=== PATIENT | female | born 1995 | race Caucasian/White ===

== ENCOUNTER → 2022-08-02 08:23 | Outpatient (BNVA) | payer BC, MEDICAID, SELFPAY | PROVIDERS: PCP Family Medicine; Visit Provider Nurse Practitioner Family | DX: J02.9 Acute pharyngitis, unspecified (principal) | CPT/HCPCS: 87071; 87880 ==

== ENCOUNTER → 2023-03-03 07:39 | Outpatient (BNVA) | payer BC, MEDICAID, SELFPAY | PROVIDERS: PCP Family Medicine; Visit Provider Nurse Practitioner Women's Health | DX: Z32.00 Encounter for pregnancy test, result unknown (principal); Z3A.00 Weeks of gestation of pregnancy not specified | CPT/HCPCS: 81025 ==

== ENCOUNTER → 2023-03-28 07:52 | Outpatient (BNVA) | payer BC, MEDICAID, SELFPAY | PROVIDERS: PCP Family Medicine; Visit Provider Obstetrics & Gynecology | DX: Z34.91 Encounter for supervision of normal pregnancy, unspecified, first trimester (principal); Z3A.09 9 weeks gestation of pregnancy | CPT/HCPCS: 76801; 80307; 84315; 85025; 86592; 86762; 86803; 86850; 86900; 87086; 87340; 87389 ==

== ENCOUNTER → 2023-04-21 13:06 | Outpatient (BNVA) | payer BC, MEDICAID, SELFPAY | PROVIDERS: PCP Family Medicine; Visit Provider Obstetrics & Gynecology | DX: Z34.80 Encounter for supervision of other normal pregnancy, unspecified trimester (principal); Z34.90 Encounter for supervision of normal pregnancy, unspecified, unspecified trimester; Z3A.00 Weeks of gestation of pregnancy not specified | CPT/HCPCS: 80307; 81000; 82950; 85025; 86592; 86762; 86803; 86850; 86900; 87086; 87340; 87491; 87591; 87806 ==

== ENCOUNTER → 2023-04-25 08:20 | Outpatient (BNVA) | payer BC, MEDICAID, SELFPAY | PROVIDERS: PCP Family Medicine; Visit Provider Obstetrics & Gynecology | DX: Z34.90 Encounter for supervision of normal pregnancy, unspecified, unspecified trimester (principal); Z3A.00 Weeks of gestation of pregnancy not specified | CPT/HCPCS: 82951; 82952 ==

== ENCOUNTER 2023-04-29 10:17 | Emergency (ER) | payer BC, MEDICAID, SELFPAY ==
[2023-04-29 11:04] VITALS: BP 108/74; PULSE 103; RESP 18; TEMP 36.7; O2SAT 98; BMI 34.9
--- NOTE | 2023-04-29 11:45 | ED_ITS ---
HPI - Nausea/Vomiting/Diarrhea 2 General: Chief complaint: Nausea/Vomiting/Diarrhea Stated complaint: 13 weeks preg. / Vomiting Time Seen by Provider: 04/29/23 10:20 Source: patient Mode of arrival: ambulatory Limitations: no limitations History of Present Illness: Patient is a nice 27-year-old female approximately 13 weeks who for complaints of nausea and vomiting. She states she has had mild nausea throughout her that has been easy to control with peppermint candies and small frequent eatings. She states over the last few weeks, now that she has gotten further along with the , the nausea has improved. She states she felt fine all day yesterday but awoke this morning feeling nauseous and had a few episodes of vomiting. She denies poor food exposures. Denies abdominal pain/cramping. No vaginal bleeding. Her concern today is that she states her first episode of vomit was mainly food, second episode was more acid/bilious like, then another episode of mucous vomit, and then an episode of dark/black vomit. She is concerned about the dark color. She does not take NSAIDS/alcohol secondary to being . No anticoagulation. No previous history of GI bleeds. MD elicited complaint: nausea and vomiting Onset (ago): hour(s) Associated nausea: Yes Associated abdominal pain: No Location of pain: None Severity: mild Exacerbating factors: none Relieving factors: none Associated symtoms: Reports no associated symptoms and nausea; Denies chest pain, dysuria, fatigue, headache(s), malaise or syncope Review of Systems 2 Const: Denies: fever(s), chills, body aches, fatigue or malaise Card: Denies: chest pain, lightheadedness, syncope or pre-syncope Resp: Denies: dyspnea GI: Reports: nausea and vomiting; Denies: abdominal pain, diarrhea, GI cramping, change in bowel habits, rectal pain, hematochezia, melena or mucus in stool : Denies: flank pain, dysuria or hematuria Musc: Denies: neck pain, back pain, extremity pain or joint pain Skin/Breast: Denies: rash Neuro: Denies: headache(s), numbness in extremities, weakness in extremities or sensory changes PFSH ED 2 PFSH: Medical History No pertinent past medical history neghx: htn,dm,thyroid,dvt/pe PCP: Dr. Pena Anxiety Moderate major depression Sarcoidosis Surgical History No pertinent past surgical history Family History Mother Hypertension Denies family history of Colon cancer Ovarian cancer Prostate cancer Diabetes Breast cancer Cancer Uterine cancer Thyroid disease Stroke Physical Exam 2 Const: COMMON NORMALS: no acute distress, average body habitus, patient oriented x3, no limitations, healthy appearing, alert and well nourished Neck/C-Spine: GENERAL: Yes normal visual inspection, No anterior neck swelling and No submandibular swelling Chest: COMMONS NORMALS: normal inspection of the chest and normal palpation of entire chest wall Resp: COMMON NORMALS: normal respiratory effort EFFORT & INSPECTION: Yes able to speak in complete sentences Cardio: COMMON NORMALS: regular rate and regular rhythm RATE: regular rate RHYTHM: regular rhythm GI: COMMON NORMALS: Normal to inspection, nondistended, normoactive bowel sounds present, Soft to palpation, non-tender, No hepatosplenomegaly present and no masses INSPECTION: Yes gravid abdomen PALPATION: Yes Soft to palpation and Yes No hepatosplenomegaly present : COMMON NORMALS: Yes no CVA tenderness BLADDER/KIDNEY EXAM: Yes no CVA tenderness Back/Pelvis: COMMON NORMALS: no CVA tenderness and thoracic and lumbar spine normal to inspection Neuro: LOLA COMA SCALE: document GCS findings Lola coma scale eye opening: Spontaneous [place] coma scale verbal response: Orientated Lola coma scale motor response: Obey commands Lola coma scale total score: 15 COMMON NORMALS: patient oriented x3, moves all extremities, no focal motor deficits and no sensory deficits noted SENSORIUM/ORIENTATION: Yes alert Skin: COMMON NORMALS: no rashes or lesions noted GENERAL SKIN EXAM: no rashes or lesions noted Course 2 Vital Signs: Vital signs: Vital Signs Temperature 98.1 F 04/29/23 11:04 Pulse Rate 103 H 04/29/23 11:04 Respiratory Rate 18 04/29/23 11:04 Blood Pressure 108/74 04/29/23 11:04 Pulse Oximetry 98 04/29/23 11:04 Oxygen Delivery Me thod Room Air 04/29/23 11:04 MDM - Nausea/Vomiting/Diarrhea Medical Decision Making Patient appears in no acute distress. Her concern today was for an episode of dark black vomit. This occurred after 3 previous episodes of vomiting. She has absolutely no abdominal or chest pain. She has no risk factors for GI bleed. Her vital signs are stable. Her blood work is unremarkable. At this time I do not have any concern for an actively bleeding gastric/duodenal ulcer, Karishma- Hook tear, Boerhaave syndrome, or other emergent etiology. Discussed if vomiting persists or if she has further episodes of dark/black vomiting/coffee grounds/or bright red blood she should return to the ED. She has no vomiting while here so gastroccult could not be performed. Medical Records I reviewed the patient's medical records. Lab Data I reviewed the patient's lab results. 04/29/23 11:56 04/29/23 11:56 Laboratory Results WBC 6.80 10^3/uL (3.29-11.43) 04/29/23 11:56 RBC 4.45 10^6/uL (3.85-5.65) 04/29/23 11:56 Hgb 13.20 g/dL (11.27-16.99) 04/29/23 11:56 Hct 39.7 % (36-47) 04/29/23 11:56 MCV 89.2 fl (85-98) 04/29/23 11:56 MCH 29.7 pg (27-33) 04/29/23 11:56 MCHC 33.2 g/dL (30-55) 04/29/23 11:56 RDW 13.2 % (12.1-15.1) 04/29/23 11:56 Plt Count 165 10^3/cmm (157-399) 04/29/23 11:56 MPV 11.1 fL (7.4-10.4) H 04/29/23 11:56 Neut % (Auto) 88.0 % 04/29/23 11:56 Lymph % (Auto) 8.1 % 04/29/23 11:56 [place] % (Auto) 3.5 % 04/29/23 11:56 Eos % (Auto) 0.0 % 04/29/23 11:56 Baso % (Auto) 0.1 % 04/29/23 11:56 Neut # (Auto) 5.98 10^3/uL (1.8-7.7) 04/29/23 11:56 Lymph # (Auto) 0.6 10^3/uL (0.8-4.8) L 04/29/23 11:56 [place] # (Auto) 0.2 10^3/uL (0.2-0.9) 04/29/23 11:56 Eos # (Auto) 0.0 10^3/uL (0.0-0.8) 04/29/23 11:56 Baso # (Auto) 0.0 10^3/uL (0.0-0.1) 04/29/23 11:56 Nucleated RBC % (auto) 0 % 04/29/23 11:56 Nucleated RBCs # 0.0 /100WBC 04/29/23 11:56 Sodium 139 mmol/L (136-145) 04/29/23 11:56 Potassium 3.8 mmol/L (3.5-5.1) 04/29/23 11:56 Chloride 104 mmol/L (98-107) 04/29/23 11:56 Carbon Dioxide 23 mmol/L (22-29) 04/29/23 11:56 Anion Gap 15.8 (5-19) 04/29/23 11:56 BUN 7 mg/dL (6-20) 04/29/23 11:56 Creatinine 0.4 mg/dL (0.5-0.9) L 04/29/23 11:56 GFR Calculation 194.5 mL/min (90-130) H 04/29/23 11:56 Glucose 90 mg/dL (65-115) 04/29/23 11:56 Calculated Osmolality 286 mOsm/kg (285-295) 04/29/23 11:56 Calcium 9.8 mg/dL (8.5-10.5) 04/29/23 11:56 Total Bilirubin 0.6 mg/dL (0.15-1.2) 04/29/23 11:56 AST 21 U/L (0-32) 04/29/23 11:56 ALT 16 U/L (0-33) 04/29/23 11:56 Alkaline Phosphatase 102 U/L (35-105) 04/29/23 11:56 Total Protein 7.6 g/dL (6.6-8.7) 04/29/23 11:56 Albumin 4.0 g/dL (3.5-5.2) 04/29/23 11:56 Globulin 3.6 g/dL (1.3-4.6) 04/29/23 11:56 No radiology studies performed this visit Discharge Plan Discharge Patient Disposition: Home Clinical Impression: Nausea and vomiting Qualifiers: Vomiting type: unspecified Qualified Code(s): R11.2 - Nausea with vomiting, unspecified Condition: Stable Prescriptions: No Action sertraline [Zoloft] 50 mg tablet 75 mg PO DAILY PNV #[id number] 30 mg iron-10 mg iron-1 mg capsule 1 cap PO DAILY Discharge Orders: Discharge ED (Routine); Ordered 04/29/23 Ordered By: Emmy Manuel Referrals: Romeo Pena MD [Primary Care Provider] - Coding Level of Care Code ED Cancellation Clerk for Dorothea James
[2023-04-29 12:03] LABS: Basophils % 0.1 %; Hematocrit 39.7 % (36-47); Lymphocytes # 0.6 10^3/uL (0.8-4.8); Lymphocytes % 8.1 %; Mean Corpuscular HGB Conc 33.2 g/dL (30-55); Mean Corpuscular Hemoglobin 29.7 pg (27-33); Mean Corpuscular Volume 89.2 fl (85-98); Mean Platelet Volume 11.1 fL (7.4-10.4); Monocytes # 0.2 10^3/uL (0.2-0.9); Monocytes % 3.5 %; Neutrophils # 5.98 10^3/uL (1.8-7.7); Nucleated Red Blood Cells % 0 %; Platelet Count 165 10^3/cmm (157-399); Red Blood Count 4.45 10^6/uL (3.85-5.65); Red Cell Distribution Width 13.2 % (12.1-15.1)
[2023-04-29] MEDS: diphenhydrAMINE 50 mg/mL SDV 1mL 25 MG IVP (12:04)
[2023-04-29] MEDS: sodium chloride 0.9% 1,000 ML 999 ML IV (12:04)
[2023-04-29] MEDS: metoclopramide 5 mg/mL SDV 2 mL IVP (12:05)
[2023-04-29 12:19] LABS: Alanine Aminotransferase 16 U/L (0-33); Alkaline Phosphatase 102 U/L (35-105); Anion Gap 15.8 (5-19); Aspartate Amino Transferase 21 U/L (0-32); Blood Urea Nitrogen 7 mg/dL (6-20); Calcium 9.8 mg/dL (8.5-10.5); Carbon Dioxide 23 mmol/L (22-29); Chloride 104 mmol/L (98-107); Globulin 3.6 g/dL (1.3-4.6); Glomerular Filtration Rate 194.5 mL/min (90-130); Glucose 90 mg/dL (65-115); Osmolality Calculated 286 mOsm/kg (285-295); Potassium 3.8 mmol/L (3.5-5.1); Sodium 139 mmol/L (136-145); Total Bilirubin 0.6 mg/dL (0.15-1.2); Total Protein 7.6 g/dL (6.6-8.7)
== END 2023-04-29 13:58 | disposition home or self-care (01) ==
PROVIDERS: Emergency Provider Physician Assistant; PCP Family Medicine
DX: O26.891 Other specified pregnancy related conditions, first trimester (principal); R11.2 Nausea with vomiting, unspecified; Z3A.13 13 weeks gestation of pregnancy
CPT/HCPCS: 36415; 80053; 85025; 96361; 96374; 96375; 99284; J1200; J2765; J7030

== ENCOUNTER → 2023-05-21 10:02 | Outpatient (BNVA) | payer BC, MEDICAID, SELFPAY | PROVIDERS: PCP Family Medicine; Visit Provider Nurse Practitioner Women's Health | DX: Z34.80 Encounter for supervision of other normal pregnancy, unspecified trimester (principal); Z3A.00 Weeks of gestation of pregnancy not specified | CPT/HCPCS: 82105; 84315 ==

== ENCOUNTER → 2023-06-18 14:17 | Outpatient (BNVA) | payer BC, MEDICAID, SELFPAY | PROVIDERS: PCP Family Medicine; Visit Provider Nurse Practitioner Women's Health | DX: Z34.92 Encounter for supervision of normal pregnancy, unspecified, second trimester (principal); Z3A.20 20 weeks gestation of pregnancy | CPT/HCPCS: 76805 ==

== ENCOUNTER → 2023-07-17 15:33 | Outpatient (BNVA) | payer BC, MEDICAID, SELFPAY | PROVIDERS: PCP Family Medicine; Visit Provider Obstetrics & Gynecology | DX: Z34.92 Encounter for supervision of normal pregnancy, unspecified, second trimester (principal); Z3A.24 24 weeks gestation of pregnancy | CPT/HCPCS: 76816 ==

== ENCOUNTER → 2023-07-25 07:56 | Outpatient (BNVA) | payer BC, MEDICAID, SELFPAY | PROVIDERS: PCP Family Medicine; Visit Provider Nurse Practitioner Women's Health | DX: Z34.80 Encounter for supervision of other normal pregnancy, unspecified trimester (principal); Z3A.00 Weeks of gestation of pregnancy not specified | CPT/HCPCS: 81000 ==

== ENCOUNTER → 2023-08-04 08:21 | Outpatient (BNVA) | payer BC, MEDICAID, SELFPAY | PROVIDERS: PCP Family Medicine; Visit Provider Obstetrics & Gynecology | DX: O99.810 Abnormal glucose complicating pregnancy (principal); Z3A.00 Weeks of gestation of pregnancy not specified | CPT/HCPCS: 82951; 82952 ==

== ENCOUNTER → 2023-08-15 07:56 | Outpatient (BNVA) | payer BC, MEDICAID, SELFPAY | PROVIDERS: PCP Family Medicine; Visit Provider Obstetrics & Gynecology | DX: Z34.80 Encounter for supervision of other normal pregnancy, unspecified trimester (principal); Z3A.00 Weeks of gestation of pregnancy not specified | CPT/HCPCS: 81000; 85025 ==

== ENCOUNTER → 2023-09-12 10:52 | Outpatient (BNVA) | payer BC, MEDICAID, SELFPAY | PROVIDERS: PCP Family Medicine; Visit Provider Obstetrics & Gynecology | DX: Z34.90 Encounter for supervision of normal pregnancy, unspecified, unspecified trimester (principal); Z3A.00 Weeks of gestation of pregnancy not specified | CPT/HCPCS: 81000 ==

== ENCOUNTER 2023-09-26 11:36 | Outpatient (CLI) | payer BC, MEDICAID, SELFPAY ==
[2023-09-26 11:45] VITALS: BP 107/60; PULSE 84
[2023-09-26 11:49] VITALS: BMI 38.0
[2023-09-26 12:11] VITALS: BP 107/60; PULSE 84; RESP 16; TEMP 36.6
== END 2023-09-26 12:11 | disposition home or self-care (01) ==
LOC: OPOB 11:36 → OBGYN 11:37
PROVIDERS: PCP Family Medicine; Visit Provider Obstetrics & Gynecology
DX: Z34.80 Encounter for supervision of other normal pregnancy, unspecified trimester (principal); Z3A.00 Weeks of gestation of pregnancy not specified
CPT/HCPCS: 59025; 84315; 85025; 99211

== ENCOUNTER → 2023-10-10 07:55 | Outpatient (BNVA) | payer BC, MEDICAID, SELFPAY | PROVIDERS: PCP Family Medicine; Visit Provider Obstetrics & Gynecology | DX: O99.013 Anemia complicating pregnancy, third trimester (principal); Z3A.00 Weeks of gestation of pregnancy not specified | CPT/HCPCS: 84315; 85025; 87081 ==

== ENCOUNTER → 2023-10-15 10:00 | Outpatient (BNVA) | payer BC, MEDICAID, SELFPAY | PROVIDERS: PCP Family Medicine; Visit Provider Nurse Practitioner Women's Health | DX: Z34.80 Encounter for supervision of other normal pregnancy, unspecified trimester (principal); Z3A.00 Weeks of gestation of pregnancy not specified | CPT/HCPCS: 84315; 87086 ==

== ENCOUNTER 2023-11-02 07:00 | Inpatient (IN) | payer BC, MEDICAID, SELFPAY ==
[2023-11-02] VITALS (52 sets, daily range): BP systolic 100–183; BP diastolic 55–110; PULSE 56–106; RESP 12–23; TEMP 36.2–36.9; O2SAT 92–100; BMI 37.4
[2023-11-02 01:41] LABS: Basophils % 0.1 %; Eosinophils % 0.5 %; Hematocrit 32.5 % (36-47); Lymphocytes # 1.8 10^3/uL (0.8-4.8); Lymphocytes % 20.1 %; Mean Corpuscular HGB Conc 32.3 g/dL (30-55); Mean Corpuscular Hemoglobin 29.2 pg (27-33); Mean Corpuscular Volume 90.5 fl (85-98); Mean Platelet Volume 12.3 fL (7.4-10.4); Monocytes # 0.6 10^3/uL (0.2-0.9); Neutrophils # 6.19 10^3/uL (1.8-7.7); Neutrophils % 71.3 %; Nucleated Red Blood Cells % 0 %; Platelet Count 167 10^3/cmm (157-399); Red Blood Count 3.59 10^6/uL (3.85-5.65); Red Cell Distribution Width 15.5 % (12.1-15.1); White Blood Count 8.69 10^3/uL (3.29-11.43)
[2023-11-02] MEDS: miSOPROStol 100 mcg tablet 25 MCG VAGINAL (01:58)
[2023-11-02] MEDS: lactated ringers 1,000 ML 999 ML IV ×2 (06:55→07:57)
[2023-11-02] MEDS: fentaNYL 50 mcg/mL INJ 2mL IVP ×2 (07:28→08:28)
--- NOTE | 2023-11-02 08:44 | P.ANESASSM_ITS ---
Pre-Anesthetic Assessment Height/Weight: Height 1.65 m Weight 102.058 kg Pulse Resp BP O2 Del Method 74 18 135/66 Room Air 11/02/23 08:13 11/02/23 08:28 11/02/23 08:13 11/02/23 00:00 Preop Diagnosis: labor pain epidural Was Beta Lea taken within 24 hours: N/A Was Clonidine taken within 24 hours: N/A Exam alert, oriented x 3, clear to auscultation bilaterally and regular rate & rhythm Airway Submandibular: within normal limits Cervical ROM: within normal limits Mallampati: Class II Dentition: full Pulmonary None reported CV/HEM Anemia None reported Hepatic None reported GI Gastroesophageal Reflux Disease Metabolic None reported Musc/skel None reported Neuropsych Anxiety and Depression Anesthetic Plan ASA status: 2 Anesthesia: Regional (specify below) Risk of > 500 ml blood loss (7ml/kg in children): No Medications/Allergies Home Medications Medication Instructions Recorded Confirmed Last Taken Type sertraline 50 mg tablet (Zoloft) 75 mg PO DAILY 06/25/22 11/02/23 11/01/23 History vitamin#30 30 mg iron-10 1 cap PO DAILY 03/28/23 11/02/23 11/01/23 History mg iron-folic acid 1 mg-omg3 capsule ferrous sulfate 325 mg (65 mg 325 mg PO BID Anemia 30 days #60 08/29/23 11/02/23 11/01/23 Rx iron) tablet tabs Allergies Allergy/AdvReac Type Severity Reaction Status Date / Time No Known Allergies Allergy Verified 11/02/23 02:03 Current Medications Generic Name Dose Route Start Last Admin Trade Name Cam PRN Reason Stop Dose Admin Fentanyl 25 - 100 mcg 11/02/23 01:20 11/02/23 08:28 Fentanyl 50 Mcg/Ml Inj 2ml IVP 50 mcg Q1H PRN Administration SEVERE PAIN Lactated Ringer's 1,000 mls @ 999 mls/hr 11/02/23 01:20 11/02/23 06:55 Lactated Ringers IV 999 mls/hr .Q1H1M PRN Administration Per L&D Rescitation Protocol Lactated Ringer's 1,000 mls @ 999 mls/hr 11/02/23 06:50 11/02/23 07:57 Lactated Ringers IV 999 mls/hr .Q1H1M PRN Administration See label comments PFSH Anesthesia Medical History No pertinent past medical history neghx: htn,dm,thyroid,dvt/pe PCP: Dr. Pena Anxiety Moderate major depression Sarcoidosis Surgical History No pertinent past surgical history Family History Mother Hypertension Denies family history of Colon cancer Ovarian cancer Prostate cancer Diabetes Breast cancer Cancer Uterine cancer Thyroid disease Stroke Social History Smoking and tobacco/nicotine status: never used tobacco/nicotine Female Reproductive History : 3 Data Anesthesia 11/02/23 00:52 Short CBC 11/02/23 Range/Units 00:52 WBC 8.69 (3.29-11.43) 10^3/uL Hgb 10.50 L (11.27-16.99) g/dL Hct 32.5 L (36-47) % MCV 90.5 (85-98) fl Plt Count 167 (157-399) 10^3/cmm Neut % (Auto) 71.3 % Neut # (Auto) 6.19 (1.8-7.7) 10^3/uL Blood Bank 11/02/23 00:52 Blood Type O Positive Rho(D) Type Rh positive Antibody Screen Negative Cardiac Studies: 2 No Data to Display
[2023-11-02] MEDS: ROPivacaine syringe 100 MG/50 ML SYRINGE 10 MG EPIDURAL (09:00)
--- NOTE | 2023-11-02 09:07 | ANES.PROC ---
Anesthesia Procedures Procedure/Date: 11/02/23 epidural Procedure Narrative: epidural complete, bolus given, epidural pump initiated with SENIOR VALIDATION ENGINEER education given, vitals taken during procedure and satisfactory throughout, patient admits to decrease pain, report of procedure to OB RN Epidural: Time Out Performed: Yes Consents Signed: Procedure Consent Consent: requested by attending/covering physician, from patient, risks and benefits reviewed and patient agrees to proceed Lumbar Level: L3-L4 Epidural position: sitting Epidural procedure: sterile prep of area, 1% lidocaine to numb the area (3 mL), 18 g needle, negative for paresthesia passed, neg for paresthesia, test dose given, 1.5% xylocaine 1:200k epi (5 mL), 0.2% Ropivacaine bolus ml (5 mL), placed PCEA, no systemic response, sterile dressing applied, L.U.D. no apparent complications and 0.2% Ropiavacaine @ mls/hr (13 mL/hr)
[2023-11-02] MEDS: lidocaine 2% INJ 20 mL INJECTION (09:25)
[2023-11-02] MEDS: oxytocin 30 UNIT/500 ML BAG 600 UNIT IV (09:26)
--- NOTE | 2023-11-02 09:38 | PM.OPHPUD ---
Labor & Delivery H&P Update Date of Procedure: November 02, 2023 Date H&P Performed: 10/24/23 H&P update information: I have reviewed H&P completed within last 30 days, I have examined patient prior to procedure and No changes to prior documentation Admission Diagnosis: Preop diagnosis: labor pain
--- NOTE | 2023-11-02 09:39 | PM.DELIVERY ---
Delivery Note: Date of delivery: November 02, 2023 Pre-delivery diagnoses: Term Desires permanent sterilization Post-delivery diagnoses: Term delivered Desires permanent sterilization Procedure: Spontaneous vaginal delivery Delivering Physician: Russell Larry MD Estimated blood loss (mL): 300 Pre-Delivery Course: Ms. Miramontes is a 27 year old established patient with LMP of 01/29/23, ESTHELA 11/05/23, based on LMP and consistent with 9 week sonogram, CC: Induction of labor. HPI: Received appropriate care. Daily vitamins since start of care. labs have all been normal, including negative for HIV. She was found to negative for Group B Strep from screening at 36 weeks. She has gained approximately 10 lbs throughout the . She denies a history of HTN during . Glucose tolerance screening for gestational diabetes was negative. Delivery: The patient was noted to be complete and pushing, so was placed in the dorsal lithotomy position, prepped and draped in the usual sterile fashion for a vaginal delivery. Pt. Noted to have epidural anesthesia. At [] the patient delivered a viable term female infant weighing 3315 g with scores of 8 and 9 at one and five minutes, respectively. The vertex was delivered spontaneously over intact perineum. The patient was asked to push and the head delivered spontaneously in the LATONIA position, over an intact perineum. A nuchal cord was checked and none noted. The anterior shoulder delivered easily and the posterior shoulder followed. The remainder of the was easily delivered and the oropharynx and nasopharynx was bulb suctioned. The infant was noted to have spontaneous cry and spontaneous movement of all four extremities. The cord was clamped x 2 and cut and noted to have 2 arteries and one vein. The infant was passed to the mother's abdomen where nursing personnel were in attendance. Cord blood sample was then obtained. The placenta delivered intact spontaneously and the uterus was explored. 20 units of Pitocin was placed in the IV bag to firm the uterus. Examination of the cervix and vaginal vault did not reveal any lacerations. Examination of the perineum showed no laceration. The vaginal pack was then removed. The patient tolerated this procedure well, and recovered in L&D with her infant in their LDR room. All sponge and needle counts were correct. The patient had requested permanent sterilization. Post-Delivery Status: Good and stable History History History 3 Term 2 0 Miscarriages/Ectopic 0 Living Children 2 Coding Level of Care Code Acute Code for Chg Fwd
--- NOTE | 2023-11-02 10:29 | P.PN_ITS ---
Subjective 2 Subjective: Mrs. Miramontes 27-year-old female G3, P3 status post spontaneous vaginal delivery. Requesting permanent sterilization Vitals/I&O/Wt Last Vital Signs Pulse 62 11/02/23 10:21 Resp 18 11/02/23 08:28 BP 104/59 11/02/23 10:21 Pulse Ox 100 11/02/23 09:20 O2 Del Method Room Air 11/02/23 00:00 11/01/23 11/02/23 11/02/23 22:59 06:59 14:59 Intake Total Balance 3 / Weight last 48 hrs Weight 102.058 kg Physical Exam 2 Narrative: GA; alert and oriented x 3 HEENT: normal Breasts: engorged Nipples - skin intact Lungs; clear to auscultation Heart: regular rhythm, no murmurs. Abd: Appropriately tender. BS+. Uterine fundus below umbilicus. No Fundal Tenderness. Perineum: normal lochia. Extremities: no edema, no cyanosis, no tenderness. Data 11/02/23 00:52 A&P Assessment and plan (1) Term delivered: (2) Request for sterilization: 27-year-old female desire permanent sterilization. The patient was counseled regarding all methods of contraception, risk and complications. She elected to continue with plan sterilization via salpingectomy. The bilateral salpingectomy is associated with a low failure rates than interval tubal occlusions done via laparoscopy. She was counseled regarding the procedure, alternative, risks and complications. Complications of salpingectomy sterilization include problems like but not limited to anesthesia, hemorrhage, organ damage, and mortality. Although pregnancies after a sterilization procedure are rare, there is substantial risk that any post-sterilization could be ectopic. The overall failure rate is on the order of 0.5% in the first year but a study showed that sterilization failures vary by both age at sterilization and the method used. The study also found that the risks of accumulate over time, and that for women aged 18 to 27 years, failure rates can be as high as 5% with bipolar coagulation and the spring clip. The patient was informed of the risks and benefits of the procedure. Risks included but were not limited to bleeding, infection, and injury to internal organs. The patient was counseled on the risk of sterilization failure. The patient was informed that in the event a occurs the risk of ectopic is increased. The patient was counseled that bilateral tubal ligation is intended to be permanent and nonreversible. She was also counseled that there are nonpermanent forms of control available to her. The patient expressed understanding of the risks involved, all questions were answered, and the patient consented to the procedure. Plan bilateral salpingectomy Attestations 2 Medical Necessity Statement*: In my professional opinion per admitting diagnosis Coding Level of Care Code Acute Code for Chg Fwd Diagnoses Term delivered O80 Request for sterilization Z30.2
--- NOTE | 2023-11-02 10:52 | ANES.PREANE2 ---
Pre-Anesthetic Assessment Height/Weight: Height 1.65 m Weight 102.058 kg Pulse Resp BP Pulse Ox O2 Del Method 65 18 109/58 100 Room Air 11/02/23 10:35 11/02/23 08:28 11/02/23 10:35 11/02/23 09:20 11/02/23 00:00 Preop Diagnosis: labor pain Operation Date: 11/02/23 10:40 Proposed Procedures p Bilateral Tubal Ligation(Bilateral) - Russell Larry MD Was Beta Lea taken within 24 hours: N/A Social No alcohol and No tobacco Exam alert, clear to auscultation bilaterally and regular rate & rhythm Airway Submandibular: within normal limits Cervical ROM: within normal limits Mallampati: Class II History/ROS No significant history except as noted Neuropsych Anxiety Conductive hearing loss Anesthetic Plan ASA status: 2 Anesthesia: Regional (specify below) (Existing epidural) Medications/Allergies Home Medications Medication Instructions Recorded Confirmed Last Taken Type sertraline 50 mg tablet (Zoloft) 75 mg PO DAILY 06/25/22 11/02/23 11/01/23 History vitamin#30 30 mg iron-10 1 cap PO DAILY 03/28/23 11/02/23 11/01/23 History mg iron-folic acid 1 mg-omg3 capsule ferrous sulfate 325 mg (65 mg 325 mg PO BID Anemia 30 days #60 08/29/23 11/02/23 11/01/23 Rx iron) tablet tabs Allergies Allergy/AdvReac Type Severity Reaction Status Date / Time No Known Allergies Allergy Verified 11/02/23 02:03 [facility] Anesthesia Medical History No pertinent past medical history neghx: htn,dm,thyroid,dvt/pe PCP: Dr. Pena Anxiety Moderate major depression Sarcoidosis Surgical History No pertinent past surgical history Family History Mother Hypertension Denies family history of Colon cancer Ovarian cancer Prostate cancer Diabetes Breast cancer Cancer Uterine cancer Thyroid disease Stroke Social History Smoking and tobacco/nicotine status: never used tobacco/nicotine Female Reproductive History : 3 Data Anesthesia 11/02/23 00:52 Short CBC 11/02/23 Range/Units 00:52 WBC 8.69 (3.29-11.43) 10^3/uL Hgb 10.50 L (11.27-16.99) g/dL Hct 32.5 L (36-47) % MCV 90.5 (85-98) fl Plt Count 167 (157-399) 10^3/cmm Neut % (Auto) 71.3 % Neut # (Auto) 6.19 (1.8-7.7) 10^3/uL Blood Bank 11/02/23 00:52 Blood Type O Positive Rho(D) Type Rh positive Antibody Screen Negative Cardiac Studies: No Data to Display
--- NOTE | 2023-11-02 11:18 | PC.NURSE ---
Patient to OR for tubal ligation
[2023-11-02] MEDS: BUPivacaine 0.5% INJ 10 mL INJECTION (11:40)
--- NOTE | 2023-11-02 11:48 | P.OP_ITS ---
Operative Report Date of procedure: November 02, 2023 Pre-op diagnosis: Term delivered Desire permanent sterilization Post-op diagnosis: same Procedure done: bilateral salpingectomy Specimens removed/disposition: Left and right fallopian tubes Surgeon: Russell Larry MD Estimated blood loss (mL): 5 IV fluids (mL): 700 Complications: None Findings: Enlarged uterus. Brief History: Mrs. Miramontes 27-year-old female G3, P3 status post spontaneous vaginal delivery, desires permanent sterilization Procedure: The patient was informed of the risks and benefits of the procedure. Risks included but were not limited to bleeding, infection, and injury to internal organs. The patient was counseled on the risk of sterilization failure. The patient was informed that in the event a occurs the risk of ectopic is increased. The patient was counseled that bilateral tubal ligation is intended to be permanent and nonreversible. She was also counseled that there are nonpermanent forms of control available to her. The patient expressed understanding of the risks involved, all questions were answered, and the patient consented to the procedure. After assuring informed consent. The patient was taken to the operating room and general anesthesia administered. Time-out procedure was performed. A small, transverse, infraumbilical skin incision was made with a scalpel, and the incision was carried down through the underlying fascia until the peritoneum was identified and entered. The left fallopian tube was identified, brought into the incision and grasped with a Jasmin clamp. The tube was then followed out to the fimbria. An avascular midsection of the fallopian tube was grasped with a [place] clamp. Using the LigaSure fine Fusion device the falopian tube was clamped, sealed, cut and excised. The specimen was sent to pathology. Excellent hemostasis was noted, and the cornua tube segment was returned to the abdomen. The same procedure was performed on the opposite fallopian tube. The fascia was then closed with O- Vicryl in a single layer. The skin was closed with 3-O Monocryl in a subcuticular fashion. The patient tolerated the procedure well. Needle and sponge counts were correct times 3.
--- NOTE | 2023-11-02 12:50 | PC.NURSE ---
Patient returned from surgery, patient assisted to bed via slide board and three nurses. Patient reports no pain at this time. Patient is tearful but reports she is unsure why.
[2023-11-02] MEDS: ketorolac 30 mg/mL INJ IVP (13:29)
[2023-11-02] MEDS: HYDROcodone-acetaminophen 5-325 mg Tablet PO (13:30)
--- NOTE | 2023-11-02 17:28 | PC.NURSE ---
Epidural removed in OR after PP tubal ligation.
[2023-11-02] MEDS: docusate sodium 100 mg Capsule PO (20:13)
[2023-11-02] MEDS: ibuprofen 800 mg tablet PO (20:21)
[2023-11-02 22:37] LABS: Hematocrit 32.8 % (36-47); Mean Corpuscular Hemoglobin 28.8 pg (27-33); Mean Corpuscular Volume 90.1 fl (85-98); Mean Platelet Volume 11.8 fL (7.4-10.4); Platelet Count 169 10^3/cmm (157-399); Red Blood Count 3.64 10^6/uL (3.85-5.65); Red Cell Distribution Width 15.1 % (12.1-15.1); White Blood Count 8.82 10^3/uL (3.29-11.43)
[2023-11-03 05:00] VITALS: BP 117/75; PULSE 71; RESP 16; TEMP 36.7; O2SAT 99
--- NOTE | 2023-11-03 05:39 | ANE.PACU2 ---
Inpatient post-anesthesia follow up: Airway intact: Yes Vital signs: Temperature 98.0 F Pulse Rate 71 Respiratory Rate 16 Blood Pressure 117/75 Pulse Oximetry 99 Oxygen Delivery Me thod Room Air Oxygen Flow Rate Fraction of Inspir ed Oxygen Hydration adequate: Yes Nausea and vomiting: No Pain level: 3 Mental status: Baseline
[2023-11-03 06:00] VITALS: BMI 37.4
[2023-11-03] MEDS: docusate sodium 100 mg Capsule PO (09:12)
[2023-11-03] MEDS: sertraline 50 mg Tablet 75 MG PO (09:12)
[2023-11-03] MEDS: PRENATAL VIT NO.130/IRON/FOLIC 1 EACH TABLET PO (09:12)
[2023-11-03] MEDS: ibuprofen 800 mg tablet PO (09:13)
--- NOTE | 2023-11-03 12:24 | PM.OBGYDC ---
Discharge Providers CHARGER OPERATOR HELPER Date of Admission: 11/02/23 07:00 Date of Discharge: 11/03/23 Attending Provider at Admission: Russell Larry MD Attending Provider at Discharge: Russell Larry MD Primary Care Provider: Romeo Pena MD Diagnoses at Discharge Discharge Diagnosis (1) Term delivered: Status: Acute (2) Request for sterilization: Status: Acute Reason for Visit Reason for Visit: IOL Hospital Course Hospital Course Ms. Miramontes is a 27 year old established patient with LMP of 01/29/23, ESTHELA 11/05/23, based on LMP and consistent with 9 week sonogram, CC: Admitted for induction of labor at 39+4 weeks. HPI: Received appropriate care. Daily vitamins since start of care. labs have all been normal, including negative for HIV. She was found to negative for Group B Strep from screening at 36 weeks. She has gained approximately 10 lbs throughout the . She denies a history of HTN during . Glucose tolerance screening for gestational diabetes was negative. Misoprostol was given for cervical ripening. She progressed to have a spontaneous vaginal delivery without complication. She had previously signed the consent for bilateral salpingectomy for permanent sterilization. bilateral salpingectomy was performed without complication. She is afebrile and hemodynamically stable /postop day 1. Tolerating diet well. Ambulating without difficulty. Pain under control. She was counseled regarding pelvic rest for 6 weeks (no sex, no tampons, no vaginal douches). Return to the emergency room if any fever, increased bleeding or pain. Information Peripartum Data: Delivery Method: Vaginal Physical Exam Narrative: GA; alert and oriented x 3 HEENT: normal Breasts: engorged Nipples - skin intact Lungs; clear to auscultation Heart: regular rhythm, no murmurs. Abd: Appropriately tender. BS+. Uterine fundus below umbilicus. No Fundal Tenderness. Incision clean and dry, no redness, pain or edema Perineum: normal lochia. Extremities: no edema, no cyanosis, no tenderness. History History History 3 Term 2 0 Miscarriages/Ectopic 0 Living Children 2 Discharge Data Studies Completed and Pending Pending at discharge Category Date Time Status Pathology: Surgical [PTH] Routine Pth 11/02/23 11:46 Received Laboratory Results WBC 8.82 10^3/uL (3.29-11.43) 11/02/23 22:17 RBC 3.64 10^6/uL (3.85-5.65) L 11/02/23 22:17 Hgb 10.50 g/dL (11.27-16.99) L 11/02/23 22:17 Hct 32.8 % (36-47) L 11/02/23 22:17 MCV 90.1 fl (85-98) 11/02/23 22:17 MCH 28.8 pg (27-33) 11/02/23 22:17 MCHC 32.0 g/dL (30-55) 11/02/23 22:17 RDW 15.1 % (12.1-15.1) 11/02/23 22:17 Plt Count 169 10^3/cmm (157-399) 11/02/23 22:17 MPV 11.8 fL (7.4-10.4) H 11/02/23 22:17 Neut % (Auto) 71.3 % 11/02/23 00:52 Lymph % (Auto) 20.1 % 11/02/23 00:52 [place] % (Auto) 7.0 % 11/02/23 00:52 Eos % (Auto) 0.5 % 11/02/23 00:52 Baso % (Auto) 0.1 % 11/02/23 00:52 Neut # (Auto) 6.19 10^3/uL (1.8-7.7) 11/02/23 00:52 Lymph # (Auto) 1.8 10^3/uL (0.8-4.8) 11/02/23 00:52 [place] # (Auto) 0.6 10^3/uL (0.2-0.9) 11/02/23 00:52 Eos # (Auto) 0.0 10^3/uL (0.0-0.8) 11/02/23 00:52 Baso # (Auto) 0.0 10^3/uL (0.0-0.1) 11/02/23 00:52 Nucleated RBC % (auto) 0 % 11/02/23 00:52 Nucleated RBCs # 0.0 /100WBC 11/02/23 00:52 Blood Type O Positive 11/02/23 00:52 Rho(D) Type Rh positive 11/02/23 00:52 Antibody Screen Negative 11/02/23 00:52 Vitals Last Vital Signs Temp 98.0 F 11/03/23 05:00 Pulse 71 11/03/23 05:00 Resp 16 11/03/23 05:00 BP 117/75 11/03/23 05:00 Pulse Ox 99 11/03/23 05:00 O2 Del Method Room Air 11/03/23 05:00 Results Labs OB ([facility]): Obstetrics US 07/17/23 Blood Type O Positive 11/02/23 Antibody Screen Negative 11/02/23 Hct 32.8 % (36-47) L 11/02/23 Hgb 10.50 g/dL (11.27-16.99) L 11/02/23 Rho(D) Type Rh positive 11/02/23 Plt Count 169 10^3/cmm (157-399) 11/02/23 Hep Bs Antigen Non-reactive (Nonreactive) 04/21/23 Hepatitis C Antibody Non-reactive (Nonreactive) 04/21/23 Rubella IgG Antibody 171.2 IU/mL (0.0-10.0) H 04/21/23 RPR Nonreactive (Nonreactive) 04/21/23 HIV 1&2 Ab & HIV 1 Ag Non-reactive (Non-Reactiv) 04/21/23 HIV 1&2 Ag/Ab, 4th Gen Non-reactive (NON-REACTIVE) 03/28/23 C.trachomatis RNA (TMA) Not detected (NOT DETECTED) 04/21/23 N.gonorrhoeae RNA (TMA) Not detected (NOT DETECTED) 04/21/23 T. vaginalis Amp RNA Not detected (NOT DETECTED) 04/21/23 Chlamydia/GC Comment See note 04/21/23 Cystic Fibrosis Screen Negative 04/21/23 Gest Glucose Tolerance mg/dL 08/04/23 HCG, Qual Positive (Negative) H 03/03/23 Urine Opiates Screen Negative ng/mL (Negative) 04/21/23 Ur Barbiturates Screen Negative ng/mL (Negative) 04/21/23 Ur Phencyclidine Scrn Negative ng/mL (Negative) 04/21/23 Ur Amphetamines Screen Negative ng/mL (Negative) 04/21/23 U Benzodiazepines Scrn Negative ng/mL (Negative) 04/21/23 Urine Cocaine Screen Negative ng/mL (Negative) 04/21/23 U Marijuana (THC) Screen Negative ng/mL (Negative) 04/21/23 Micro Urine Specimen 10/15/23 Discharge Plan Discharge Patient Disposition: Home Condition: Stable Prescriptions: New ibuprofen 800 mg tablet 800 mg PO TID PRN (Reason: pain) Qty: 60 0RF hydrocodone-acetaminophen 5-325 mg tablet 1 tab PO Q4H PRN (Reason: pain) Qty: 10 0RF Iron (ferrous sulfate) 325 mg (65 mg iron) tablet 325 mg PO BID Qty: 60 0RF Colace 100 mg capsule 100 mg PO BID Qty: 60 0RF acetaminophen 325 mg capsule 325 mg PO Q4H PRN (Reason: fever or pain) Qty: 60 0RF Continued sertraline [Zoloft] 50 mg tablet 75 mg PO DAILY PNV #[id number] 30 mg iron-10 mg iron-1 mg capsule 1 cap PO DAILY ferrous sulfate 325 mg (65 mg iron) tablet 325 mg PO BID 30 Days Qty: 60 3RF Discharge Orders: Discharge Order (Routine); Ordered 11/03/23 Ordered By: Russell Larry Referrals: Russell Larry MD [Physician] - 12/18/23 2:45 pm (And to 2 weeks incision check) Discharge Diet: Usual diet Discharge Activity: Limit activity as instructed Patient Instructions: Depression (DC), Acute Wound Care (DC), Preeclampsia and Eclampsia After Delivery (GEN), Hemorrhage (DC), OB Discharge Report, OB Food/Drug Interaction Guide, Opioid Safety, Post Anesthesia Care, OB Home Care, OB Vaginal Deliveries - [facility], Abnormal Bleeding Activity Restrictions/Additional Instructions: 1. Please call [facility] on next working day to make your post-operative appointment in 2 weeks. 2. Please stay home until you come back to the clinic on first post-hospatilization check up. 3. Please follow instructions on your medications CAREFULLY. 4. If you have abdominal incision, do not cover it unless dressing is necessary because of drainage. OK to shower, but avoid bath. Leave steri-strips until they fall off. If they are still on one week after surgery, you may remove them. 5. If you had vaginal surgery or vaginal repair, Dr. Larry may instruct you to take SITZ bath. 6. Yellow, blood tinged odorous vaginal discharge is usually normal after hysterectomy or vaginal surgeries. 7. No SEXUAL INTERCOURSE, tampons, or douches until you are completely released from the post-operative care. 8. Avoid constipation by eating right and maybe using some Metamucil or Milk of Magnesia. 9. All prescription refills are given during the working hours. Please do no wait till it runs out. Call the clinic at [phone] before your medication runs out. The clinic will get in touch with your doctor to prescribe medications if necessary. 10. Please remain within 40 mile radius from our hospital because emergencies do happen now and then during the post-operative period. 11. If you have stairs at home, take one step at a time slowly and minimize the number of trips. It helps to stay in one floor for the next few days. No lifting except what you can lift by one hand until you are released from the post-operative care. 12. Driving is discouraged until you are well healed. It may be 3-4 weeks before you feel strong enough to drive. You should be able to turn and look through the rear window without pain and you should be able to push the brake pedal very hard without pain before you drive. No fast rules, but SAFETY should be your primary concern. DO NOT drive if you are on sedating medications such as narcotics. 13. Call the clinic (during working hours) to make urgent appointment or go to the Emergency room, if any of the following occurs: i. Vaginal bleeding becomes heavy, more than a period. ii. Incision becomes red and sore, or drains pus. iii. Your TEMPERATURE is over 100.4F or you have chill. iv. IV site becomes red and swollen (a little ``knot?? is usually OK) v. Persistent nausea and vomiting vi. Persistent constipation or diarrhea vii. Rash or allergic reaction to medications. Discharge Attestations CHARGER OPERATOR HELPER Time Spent in Discharge Care*: greater than 30 min Coding Level of Care Code Acute Code for Chg Fwd Diagnoses Term delivered O80 Request for sterilization Z30.2
[2023-11-03 13:12] VITALS: BP 127/74; PULSE 68; RESP 16
--- NOTE | 2023-11-03 14:12 | ANE.PACU2 ---
Inpatient post-anesthesia follow up: Airway intact: Yes Vital signs: Temperature 98.0 F Pulse Rate 68 Respiratory Rate 16 Blood Pressure 127/74 Pulse Oximetry 99 Oxygen Delivery Me thod Room Air Oxygen Flow Rate Fraction of Inspir ed Oxygen Hydration adequate: Yes Nausea and vomiting: No Pain level: 1 Mental status: Baseline Epidural Start/End: Epidural Start Date: 11/02/23 Epidural Start Time: 08:50 Epidural End Date: 11/02/23 Epidural End Time: 17:28
== END 2023-11-03 13:15 | disposition home or self-care (01) | DRG 797 ==
LOC: OPOB 09:27 → OBGYN 09:27
PROVIDERS: Admitting Provider Obstetrics & Gynecology; PCP Family Medicine; Visit Provider Obstetrics & Gynecology
PROC: 10E0XZZ Delivery of Products of Conception, External Approach (ICD-10-PCS; CPT 58605; principal; 2023-11-02 10:30)
DX: O99.02 Anemia complicating childbirth (principal); F33.1 Major depressive disorder, recurrent, moderate; Z37.0 Single live birth; D50.9 Iron deficiency anemia, unspecified; O99.344 Other mental disorders complicating childbirth; Z3A.38 38 weeks gestation of pregnancy; Z30.2 Encounter for sterilization
CPT/HCPCS: 36415; 59025; 59409; 85025; 85027; 86850; 86900; 88302; 96374; 96376; 99211; J0330; J1885; J2590; J2704; J2795; J3010; J3490; J7120

== ENCOUNTER 2023-11-07 16:48 | Inpatient (IN) | payer BC, SELFPAY ==
[2023-11-07 16:52] VITALS: BP 153/98; PULSE 61; RESP 14; TEMP 36.6; O2SAT 98
[2023-11-07 17:00] VITALS: BP 160/92; PULSE 53; O2SAT 99
--- NOTE | 2023-11-07 17:39 | CTR_ITS ---
PROCEDURE INFORMATION: Exam: CT Head Without Contrast Exam date and time: 11/07/2023 5:43 PM Age: 27 years old Clinical indication: Pain; Headache not specified; Additional info: Post delivery MAYES TECHNIQUE: Imaging protocol: Computed tomography of the head without contrast. Radiation optimization: All CT scans at this facility use at least one of these dose optimization techniques: automated exposure control; mA and/or kV adjustment per patient size (includes targeted exams where dose is matched to clinical indication); or iterative reconstruction. COMPARISON: No relevant prior studies available. RADIATION DOSE METRICS: Total DLP (mGy-cm): 1067.78 FINDINGS: Brain: Normal. No hemorrhage. Unremarkable white matter. No mass effect. Cerebral ventricles: No ventriculomegaly. Paranasal sinuses: Visualized sinuses are unremarkable. No fluid levels. Mastoid air cells: Visualized mastoid air cells are well aerated. Bones: Unremarkable. No acute fracture. Soft tissues: Unremarkable. CT/CT head wo con* [id number] IMPRESSION: No acute intracranial abnormality.
[2023-11-07 18:12] LABS: Basophils % 0.1 %; Eosinophils # 0.1 10^3/uL (0.0-0.8); Hematocrit 34.4 % (36-47); Lymphocytes # 1.3 10^3/uL (0.8-4.8); Mean Corpuscular HGB Conc 32.8 g/dL (30-55); Mean Corpuscular Volume 88.4 fl (85-98); Mean Platelet Volume 10.8 fL (7.4-10.4); Monocytes # 0.5 10^3/uL (0.2-0.9); Monocytes % 7.6 %; Neutrophils # 4.84 10^3/uL (1.8-7.7); Neutrophils % 71.9 %; Nucleated Red Blood Cells % 0 %; Platelet Count 171 10^3/cmm (157-399); Red Blood Count 3.89 10^6/uL (3.85-5.65); Red Cell Distribution Width 14.6 % (12.1-15.1); White Blood Count 6.74 10^3/uL (3.29-11.43)
[2023-11-07 18:28] LABS: Alanine Aminotransferase 23 U/L (0-33); Albumin Level 3.4 g/dL (3.5-5.2); Alkaline Phosphatase 136 U/L (35-105); Anion Gap 21.6 (5-19); Aspartate Amino Transferase 17 U/L (0-32); Blood Urea Nitrogen 34 mg/dL (6-20); Calcium 8.4 mg/dL (8.5-10.5); Carbon Dioxide 18 mmol/L (22-29); Chloride 106 mmol/L (98-107); Creatinine Clr Calc Pharmacy 41.9262; Glomerular Filtration Rate 24.6 mL/min (90-130); Glucose 79 mg/dL (65-115); Osmolality Calculated 301 mOsm/kg (285-295); Potassium 3.6 mmol/L (3.5-5.1); Sodium 142 mmol/L (136-145); Total Bilirubin 0.3 mg/dL (0.15-1.2); Total Protein 6.4 g/dL (6.6-8.7)
--- NOTE | 2023-11-07 18:44 | CTR_ITS ---
PROCEDURE INFORMATION: Exam: CT Abdomen And Pelvis Without Contrast Exam date and time: 11/07/2023 6:56 PM Age: 27 years old Clinical indication: Pain and abnormal findings; Abnormal lab test; Abnormal kidney function lab tests; Abdominal pain; Right; Patient HX: RT flank pain with luisana. Five days post . ; Additional info: Elevated creatinine, right CVA tenderness TECHNIQUE: Imaging protocol: Computed tomography of the abdomen and pelvis without contrast. Radiation optimization: All CT scans at this facility use at least one of these dose optimization techniques: automated exposure control; mA and/or kV adjustment per patient size (includes targeted exams where dose is matched to clinical indication); or iterative reconstruction. COMPARISON: [place] [id number] 07/17/2023 3:39 PM RADIATION DOSE METRICS: Total DLP (mGy-cm): 802.41 FINDINGS: Liver: Hepatomegaly measuring up to 22 cm. Gallbladder and biliary ducts: Normal. No calcified stones. No ductal dilation. Pancreas: Normal. No ductal dilation. Spleen: Splenomegaly measuring up to 15 cm. Adrenal glands: Normal. No mass. Kidneys and ureters: There is a 2.0 x 1.4 cm fat attenuating focus within the inferior pole of the left kidney and a 0.6 cm fat attenuating focus within superior pole of the left kidney, likely representing angiomyolipomas. Stomach and bowel: Unremarkable. No obstruction. No mucosal thickening. Appendix: No evidence of appendicitis. Intraperitoneal space: Unremarkable. No free air. No significant fluid collection. Vasculature: Unremarkable. No abdominal aortic aneurysm. Lymph nodes: Unremarkable. No enlarged lymph nodes. Urinary bladder: Unremarkable as visualized. Reproductive: appearance of the uterus. Bones/joints: Unremarkable. No acute fracture. Soft tissues: Small umbilical hernia with mild surrounding fat stranding. CT/CT kidney stone [id number] IMPRESSION: 1. appearance of the uterus. 2. No acute findings within the bilateral kidneys. No hydronephrosis. 3. 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 Lesions between 2-3 cm are recommended to be re-evaluated every 5 years. 4. Small umbilical hernia with mild surrounding fat stranding. 5. Hepatosplenomegaly.
--- NOTE | 2023-11-07 18:47 | ED_ITS ---
HPI - Back Pain/Injury 2 General: Chief Complaint: Back Pain/Injury Stated Complaint: back pain Time Seen by Provider: 11/07/23 17:24 Source: patient Mode of arrival: ambulatory Limitations: no limitations History of Present Illness: Patient is a 27-year-old female who presents the emergency department planing of back pain for the past week since giving . She states she did receive an epidural, and since after giving does have the pain. She also notes headache that began yesterday. She states this headache is present all the time, does note that it seems to somewhat subside when she lies flat. She has been taking prescribed ibuprofen and [place] for her pain. No neurological deficits reported. States that the delivery went without complications. Patient informed to come to the emergency department by OB after reporting 01/21 pain. She denies any urinary symptoms. She states the back pain is to the right paralumbar muscles. She denies any visual changes, peripheral numbness weakness or tingling, chest pain, shortness of breath, abdominal pain, or any other symptoms at this time. She states her back pain and headache is present at this time. She does request something for pain. MD elicited complaint: back pain Pertinent past history: other (Recently gave ) Onset (ago): day(s) Timing: constant Severity: severe Similar Symptoms Previously: No Location: right lower back Radiation: none Relieving factors: none Associated symptoms: Deny abdominal pain, chills, dysuria, fatigue, fever(s), nausea or vomiting Review of Systems 2 General: Reports: 10 or more systems reviewed and unremarkable except in HPI and below Const: Denies: fever(s), chills or fatigue Eyes: Denies: change in vision ENMT: Denies: throat pain, ear or mastoid pain or nasal discharge Card: Denies: chest pain, palpitations, swelling of feet/ankles or lightheadedness Resp: Denies: dyspnea, productive cough or wheezing GI: Denies: abdominal pain, nausea, vomiting, diarrhea or constipation : Denies: flank pain, difficulty voiding, dysuria or urinary frequency Musc: Reports: back pain; Denies: neck pain or joint pain Skin/Breast: Denies: rash Neuro: Reports: headache(s); Denies: numbness in extremities or weakness in extremities PFS ED 2 PFSH: Medical History (Updated 11/07/23 @ 20:21 by Laura Jaquez MD) No pertinent past medical history neghx: htn,dm,thyroid,dvt/pe PCP: Dr. Pena Anxiety Moderate major depression Sarcoidosis Surgical History No pertinent past surgical history Family History Mother Hypertension Denies family history of Colon cancer Ovarian cancer Prostate cancer Diabetes Breast cancer Cancer Uterine cancer Thyroid disease Stroke Social History Smoking and tobacco/nicotine status: never used tobacco/nicotine Physical Exam 2 Const: COMMON NORMALS: no acute distress, patient oriented x3 and no limitations GENERAL APPEARANCE: cooperative, comfortable and well developed ORIENTATION/CONSCIOUSNESS: Yes awake, Yes oriented to person, Yes oriented to place and Yes oriented to time HENMT: COMMON NORMALS: normocephalic, atraumatic and hearing grossly normal bilaterally HEAD & SCALP: normocephalic and atraumatic Eye: COMMON NORMALS: Equal, round and reactive pupils present, EOMs intact bilaterally and conjunctivae normal CONJUNCTIVA: Yes conjunctivae normal P UPIL: Yes Equal, round and reactive pupils present Neck/C-Spine: COMMON NORMALS: full ROM, supple and no JVD Resp: COMMON NORMALS: normal respiratory effort, No retractions, No use of accessory muscles and clear to auscultation bilaterally AUSCULTATION: clear to auscultation bilaterally Cardio: COMMON NORMALS: no JVD, regular rate, regular rhythm, No clicks present (Cardio), No murmurs present (Cardio) and No rub (Cardio) RATE: r egular rate RHYTHM: regular rhythm GI: COMMON NORMALS: Normal to inspection, nondistended, normoactive bowel sounds present, Soft to palpation and non-tender AUSCULTATION: Yes normoactive bowel sounds PALPATION: Yes Soft to palpation RECTAL EXAM: d eferred : BLADDER/KIDNEY EXAM: Yes CVA tenderness on the right Back/Pelvis: COMMON NORMALS: thoracic and lumbar spine normal to inspection, no thoracic nor lumbar tenderness and thoraco-lumbar ROM normal GENERAL BACK: Yes CVA tenderness Extremity: COMMON NORMALS: normal to inspection, full ROM and capillary refill normal Neuro: COMMON NORMALS: patient oriented x3, CN's II-XII intact bilaterally, moves all extremities, no focal motor deficits, no sensory deficits noted and gait normal SENSORIUM/ORIENTATION: Yes oriented to person, Yes oriented to place and Yes oriented to time Psych: COMMON NORMALS: mental status grossly normal and Normal thought process present THOUGHT PROCESS: Normal thought process present Skin: COMMON NORMALS: no rashes or lesions noted GENERAL SKIN EXAM: no rashes or lesions noted Course 2 Vital Signs: Vital signs: Vital Signs Temperature 97.8 F 11/07/23 16:52 Pulse Rate 53 L 11/07/23 17:00 Respiratory Rate 14 11/07/23 16:52 Blood Pressure 160/92 11/07/23 17:00 Pulse Oximetry 99 11/07/23 17:00 Oxygen Delivery Me thod Room Air 11/07/23 16:52 MDM - Back Pain/Injury Medical Decision Making Patient presented 6 days . Her complaint was some back pain since delivering, as well as a new onset headache yesterday. Pain somewhat relieved with lying flat, and I did initially suspect a post LP headache. However labs obtained did show evidence of a kidney injury, and a CT abdomen pelvis did not demonstrate any acute nephrologic findings. Her blood pressure has been elevated throughout the ED course, no history of hypertension. She was not diagnosed preeclamptic before giving . In addition her head CT was normal. She is given [place] and upon recheck does state that her headache feels better, is still having back pain. I spoke with hospitalist, Dr. Jaquez, who agrees to admit the patient for further workup and evaluation of the potential nephrotic syndrome. Care of patient discussed with Dr. Aguilera who agrees with admission at this time. Labs 11/07/23 18:04 11/07/23 18:[address] 11/07/23 17:39 IMPRESSION: No acute intracranial abnormality. Abdomen/Pelvis CT 11/07/23 18:44 IMPRESSION: 1. appearance of the uterus. 2. No acute findings within the bilateral kidneys. No hydronephrosis. 3. 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 Lesions between 2-3 cm are recommended to be re-evaluated every 5 years. 4. Small umbilical hernia with mild surrounding fat stranding. 5. Hepatosplenomegaly. Laboratory Results WBC 6.74 10^3/uL (3.29-11.43) 11/07/23 18:04 RBC 3.89 10^6/uL (3.85-5.65) 11/07/23 18:04 Hgb 11.30 g/dL (11.27-16.99) 11/07/23 18:04 Hct 34.4 % (36-47) L 11/07/23 18:04 MCV 88.4 fl (85-98) 11/07/23 18:04 MCH 29.0 pg (27-33) 11/07/23 18:04 MCHC 32.8 g/dL (30-55) 11/07/23 18:04 RDW 14.6 % (12.1-15.1) 11/07/23 18:04 Plt Count 171 10^3/cmm (157-399) 11/07/23 18:04 MPV 10.8 fL (7.4-10.4) H 11/07/23 18:04 Neut % (Auto) 71.9 % 11/07/23 18:04 Lymph % (Auto) 19.0 % 11/07/23 18:04 [place] % (Auto) 7.6 % 11/07/23 18:04 Eos % (Auto) 1.0 % 11/07/23 18:04 Baso % (Auto) 0.1 % 11/07/23 18:04 Neut # (Auto) 4.84 10^3/uL (1.8-7.7) 11/07/23 18:04 Lymph # (Auto) 1.3 10^3/uL (0.8-4.8) 11/07/23 18:04 [place] # (Auto) 0.5 10^3/uL (0.2-0.9) 11/07/23 18:04 Eos # (Auto) 0.1 10^3/uL (0.0-0.8) 11/07/23 18:04 Baso # (Auto) 0.0 10^3/uL (0.0-0.1) 11/07/23 18:04 Nucleated RBC % (auto) 0 % 11/07/23 18:04 Nucleated RBCs # 0.0 /100WBC 11/07/23 18:04 Sodium 142 mmol/L (136-145) 11/07/23 18:04 Potassium 3.6 mmol/L (3.5-5.1) 11/07/23 18:04 Chloride 106 mmol/L (98-107) 11/07/23 18:04 Carbon Dioxide 18 mmol/L (22-29) L 11/07/23 18:04 Anion Gap 21.6 (5-19) H 11/07/23 18:04 BUN 34 mg/dL (6-20) H 11/07/23 18:04 Creatinine 2.4 mg/dL (0.5-0.9) H 11/07/23 18:04 GFR Calculation 24.6 mL/min (90-130) L 11/07/23 18:04 Glucose 79 mg/dL (65-115) 11/07/23 18:04 Calculated Osmolality 301 mOsm/kg (285-295) H 11/07/23 18:04 Calcium 8.4 mg/dL (8.5-10.5) L 11/07/23 18:04 Total Bilirubin 0.3 mg/dL (0.15-1.2) 11/07/23 18:04 AST 17 U/L (0-32) 11/07/23 18:04 ALT 23 U/L (0-33) 11/07/23 18:04 Alkaline Phosphatase 136 U/L (35-105) H 11/07/23 18:04 Total Protein 6.4 g/dL (6.6-8.7) L 11/07/23 18:04 Albumin 3.4 g/dL (3.5-5.2) L 11/07/23 18:04 Globulin 3.0 g/dL (1.3-4.6) 11/07/23 18:04 Urine Color Yellow (Yellow) 11/07/23 19:23 Urine Appearance Clear (CLEAR) 11/07/23 19:23 Urine pH 5 (5-7) 11/07/23 19:23 Ur Specific [place] 1.005 (1.005-1.030) 11/07/23 19:23 Urine Protein 1+ (Negative) H 11/07/23 19:23 Urine Glucose (UA) Norm (Normal) 11/07/23 19:23 Urine Ketones Negative (Negative) 11/07/23 19:23 Urine Blood 3+ (Negative) H 11/07/23 19:23 Urine Nitrate Negative (Negative) 11/07/23 19:23 Urine Bilirubin Neg (Negative) 11/07/23 19:23 Urine Urobilinogen Neg mg/dL (Negative) 11/07/23 19:23 Ur Leukocyte Esterase Negative (Negative) 11/07/23 19:23 Urine RBC 0-4 /hpf (0-2) H 11/07/23 19:23 Urine WBC 5-10 /hpf (0-5) H 11/07/23 19:23 Ur Squamous Epith Cells 5-10 /hpf (0-5) H 11/07/23 19:23 Amorphous Sediment Trace /hpf 11/07/23 19:23 Urine Bacteria 1+ /hpf (NONE) H 11/07/23 19:23 Hyaline Casts 0-4 /lpf H 11/07/23 19:23 Fine Granular Casts 0-4 /lpf H 11/07/23 19:23 All radiology interpretation(s) finalized by discharge Discharge Plan Discharge Patient Disposition: Admitted As Inpatient Admit Provider: Laura Jaquez Clinical Impression: Nephrotic syndrome Condition: Stable Coding Level of Care Code ED Tuckpointer for Dorothea James
[2023-11-07] MEDS: HYDROcodone-acetaminophen 7.5-325 mg Tablet 1 TAB PO (19:05)
[2023-11-07 19:57] LABS: Glucose Urine UA Norm (Normal); Ketones Urine Negative (Negative); Protein Urine 1+ (Negative); Specific Gravity, Urine 1.005 (1.005-1.030); Urine Appearance Clear (CLEAR); Urine Color Yellow (Yellow); pH Urine 5 (5-7)
[2023-11-07 19:58] LABS: Add Urine Microscopic? YES; Amorphous Sediment Urine TRACE /hpf; Bacteria Urine 1+ /hpf; Bilirubin Urine Neg (Negative); Blood Urine 3+ (Negative); Fine Granular Casts Urine 0-4 /lpf; Hyaline Casts Urine 0-4 /lpf; Leukocyte Esterase Urine Negative (Negative); Nitrate Urine Negative (Negative); RBC Urine 0-4 /hpf (0-2); Urobilinogen Urine Neg (Negative)
--- NOTE | 2023-11-07 20:18 | P.HP_ITS ---
Providers/Chief Complaint 2 Primary Care Provider: Romeo Pena MD Chief Complaint: back pain History of Present Illness Lela Miramontes is a 27 year old female presented from OB clinic for her headache and generalized weakness. Patient is 5 days, received epidural,, G3, P3 status post spontaneous vaginal delivery followed by permanent sterilization bilateral salpingectomy, EBL 300ml 11/01 no history of hypertension or diabetes during , Patient is stating that she has history of cutaneous sarcoidosis which gets better during , otherwise she does not have any significant other medical history, her siblings are doing well no history of renal disease or hearing deficit or Alport syndrome, stating that her sister was diagnosed some kind of cardiac disease but she is not sure about the diagnosis Patient is stating that her left leg is more swollen as compared to right, she is not experiencing any chest pain shortness of breath fever nausea vomiting or diarrhea Her main reason to come to the hospital was worsening of back pain Review of Systems 2 Const: Denies: fever(s) Eyes: Denies: change in vision ENMT: Denies: throat pain Card: Denies: chest pain Resp: Denies: dyspnea GI: Denies: abdominal pain Medications/Allergies Home Medications Medication Instructions Recorded Confirmed Last Taken Type sertraline 50 mg tablet (Zoloft) 75 mg PO DAILY 06/25/22 11/02/23 11/01/23 History vitamin#30 30 mg iron-10 1 cap PO DAILY 03/28/23 11/02/23 11/01/23 History mg iron-folic acid 1 mg-omg3 capsule ferrous sulfate 325 mg (65 mg 325 mg PO BID Anemia 30 days #60 08/29/23 11/02/23 11/01/23 Rx iron) tablet tabs acetaminophen 325 mg capsule 325 mg PO Q4H PRN fever or pain 11/03/23 Unknown Rx #60 caps docusate sodium 100 mg capsule 100 mg PO BID #60 caps 11/03/23 Unknown Rx (Colace) ferrous sulfate 325 mg (65 mg 325 mg PO BID #60 tabs 11/03/23 Unknown Rx iron) tablet (Iron (ferrous sulfate)) hydrocodone 5 mg-acetaminophen 325 1 tab PO Q4H PRN pain #10 tabs 11/03/23 Unknown Rx mg tablet ibuprofen 800 mg tablet 800 mg PO TID PRN pain #60 tabs 11/03/23 Unknown Rx Allergies Allergy/AdvReac Type Severity Reaction Status Date / Time No Known Allergies Allergy Verified 11/07/23 17:01 PFSH Acute 2 PFSH: Medical History No pertinent past medical history neghx: htn,dm,thyroid,dvt/pe PCP: Dr. Pena Anxiety Moderate major depression Sarcoidosis Surgical History No pertinent past surgical history Family History Mother Hypertension Denies family history of Colon cancer Ovarian cancer Prostate cancer Diabetes Breast cancer Cancer Uterine cancer Thyroid disease Stroke Social History Smoking and tobacco/nicotine status: never used tobacco/nicotine Vitals/I&O/Wt Last Vital Signs Temp 97.8 F 11/07/23 16:52 Pulse 53 L 11/07/23 17:00 Resp 14 11/07/23 16:52 BP 160/92 11/07/23 17:00 Pulse Ox 99 11/07/23 17:00 O2 Del Method Room Air 11/07/23 16:52 Weight last 48 hrs Weight 99.79 kg Physical Exam 2 Narrative: Awake and alert Lower extremity significant swelling Nonpitting edema Left leg more swollen expectorate No active chest pain or shortness of breath Hemodynamic stable S1, S2 Currently on room air No edema around her face Upper extremities without any edema Data 11/07/23 18:04 11/07/23 18:04 A&P Assessment and plan (1) headache: (2) JULIEN (acute kidney injury): Plan JULIEN Hepatosplenomegaly: Etiology unknown Check hepatitis panel Etiology unknown Previous creatinine was normal in April No ureteral injury as per the CT abdomen pelvis scan, please note that was done without contrast No signs of UTI Complaining of back pain I will request urinary studies, Will give her IV fluids, she has nonpitting edema check TSH I would like to request 24-hour urine studies as well If her creatinine does not improve with IV fluid hydration trial she will need nephro consultation in the morning No urgent need of nephro consultation at night no need of dialysis Patient was taking ibuprofen 3 times a day 800 mg No history of smoking, alcohol use or recreational drugs No other history of renal disease in the family No signs of Alport syndrome in the family no hearing deficit or vision problems in her siblings She has cutaneous sarcoidosis I do believe there is some genetic component that is why 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
[2023-11-07 21:06] VITALS: BP 132/91; PULSE 53; RESP 16; O2SAT 98
[2023-11-07 22:21] VITALS: BMI 35.9
[2023-11-07 23:08] VITALS: BP 150/99; PULSE 65; RESP 17; TEMP 36.7; O2SAT 99
[2023-11-07] MEDS: heparin 5,000 unit/mL INJ 1 mL 5000 UNIT SUBCUT (23:18)
[2023-11-07] MEDS: sodium bicarbonate 650 mg Tablet PO (23:18)
[2023-11-07] MEDS: sodium chloride 0.9% 1,000 ML 100 ML IV (23:20)
[2023-11-07] MEDS: HYDROcodone-acetaminophen 5-325 mg Tablet 1 TAB PO (23:26)
[2023-11-07 23:39] LABS: Thyroid Stimulating Hormone 1.77 uIU/mL (0.27-4.20)
[2023-11-08] VITALS (9 sets, daily range): BP systolic 125–164; BP diastolic 84–95; PULSE 6–75; RESP 16–20; TEMP 36.3–37.1; O2SAT 96–100
[2023-11-08 00:21] LABS: Urine Creatinine 35 mg/dL (28-217); Urine Random Sodium 43 mmol/L
[2023-11-08 00:26] LABS: Creatinine Urine, Random 35 mg/dL (28-217); Microalbum Creatinine Ratio Ur 286 mg/dL (0-20); Microalbumin Random Urine 10 ug/dL (0-20)
[2023-11-08 00:34] LABS: Hepatitis A Antibody IgM Non-Reactive (Nonreactive); Hepatitis B Core AB, Total Non-Reactive (Nonreactive); Hepatitis B Surface AB < 3.5 (11.5-1000); Hepatitis B Surface Antigen Non-Reactive (Nonreactive); Hepatitis C Virus Antibody Non-Reactive (Nonreactive)
[2023-11-08 00:42] LABS: Eosinophil Urine No Eosinophils Seen; Urine Eosinophil Count 0 (0-0)
[2023-11-08 05:24] LABS: Basophils % 0.3 %; Eosinophils % 0.6 %; Hematocrit 36.3 % (36-47); Lymphocytes # 1.2 10^3/uL (0.8-4.8); Lymphocytes % 19.1 %; Mean Corpuscular HGB Conc 31.4 g/dL (30-55); Mean Corpuscular Hemoglobin 28.6 pg (27-33); Mean Corpuscular Volume 91.2 fl (85-98); Mean Platelet Volume 11.2 fL (7.4-10.4); Monocytes # 0.6 10^3/uL (0.2-0.9); Monocytes % 8.9 %; Neutrophils # 4.51 10^3/uL (1.8-7.7); Neutrophils % 70.6 %; Nucleated Red Blood Cells % 0 %; Platelet Count 158 10^3/cmm (157-399); Red Blood Count 3.98 10^6/uL (3.85-5.65); Red Cell Distribution Width 14.4 % (12.1-15.1); White Blood Count 6.39 10^3/uL (3.29-11.43)
[2023-11-08 05:40] LABS: Blood Urea Nitrogen 35 mg/dL (6-20); Calcium 8.2 mg/dL (8.5-10.5); Carbon Dioxide 16 mmol/L (22-29); Chloride 110 mmol/L (98-107); Creatinine Clr Calc Pharmacy 39.9537; Glomerular Filtration Rate 23.5 mL/min (90-130); Glucose 76 mg/dL (65-115); Magnesium 2.2 mg/dL (1.7-2.3); Osmolality Calculated 303 mOsm/kg (285-295); Phosphorus 7.3 mg/dL (2.5-4.5); Sodium 143 mmol/L (136-145)
[2023-11-08 05:41] LABS: Anion Gap 20.7 (5-19); Potassium 3.7 mmol/L (3.5-5.1)
--- NOTE | 2023-11-08 06:00 | USR_ITS ---
PROCEDURE INFORMATION: Exam: US Duplex Lower Extremity Veins, Bilateral Exam date and time: 11/08/2023 7:40 AM Age: 27 years old Clinical indication: Edema, localized; Lower extremity, bilateral; Additional info: Swelling TECHNIQUE: Imaging protocol: Real-time duplex ultrasound of the bilateral extremities with 2-D emanuel scale, color Doppler flow and spectral waveform analysis including responses to compression and other maneuvers (when performed) with image documentation. Complete exam focused on the lower extremity veins. COMPARISON: [place] [id number] 07/17/2023 3:39 PM FINDINGS: Right deep veins: Unremarkable. The common femoral, femoral, proximal profunda femoral and popliteal veins are patent without thrombus. Normal Doppler waveforms. Normal compressibility and/or augmentation response. Left deep veins: Unremarkable. The common femoral, femoral, proximal profunda femoral and popliteal veins are patent without thrombus. Normal Doppler waveforms. Normal compressibility and/or augmentation response. Superficial veins: Greater saphenous veins at the saphenofemoral junctions are patent bilaterally without thrombus. Soft tissues: Unremarkable. US/CV venous duplex [facility] [id number] IMPRESSION: No evidence of deep vein thrombosis.
[2023-11-08] MEDS: sodium bicarbonate 650 mg Tablet PO ×3 (08:33→21:03)
[2023-11-08] MEDS: HYDROcodone-acetaminophen 5-325 mg Tablet 1 TAB PO ×3 (08:33→19:41)
[2023-11-08] MEDS: ferrous sulfate EC 325 mg Tablet PO ×2 (08:33→17:31)
[2023-11-08] MEDS: omega-3 fatty acids 1,000 mg Capsule 1000 MG PO (08:33)
[2023-11-08] MEDS: sodium chloride 0.9% 1,000 ML 100 ML IV ×2 (08:34→21:05)
--- NOTE | 2023-11-08 09:55 | USR_ITS ---
PROCEDURE INFORMATION: Exam: US Retroperitoneal; Complete; Kidneys and Bladder Exam date and time: 11/08/2023 2:24 PM Age: 27 years old Clinical indication: Condition or disease; Other: Tim TECHNIQUE: Imaging protocol: Real-time ultrasound of the retroperitoneum with image documentation. Complete exam focused on the kidneys and bladder. COMPARISON: [place] [id number] 07/17/2023 3:39 PM FINDINGS: Right kidney: Normal. No stones. No hydronephrosis. Right kidney measures 13.8 x 6.3 x 5.5 cm with cortical thickness of 1.6 cm. Left kidney: Normal. No stones. No hydronephrosis. The left kidney measures 14.5 x 5.5 x 3.7 cm with cortical thickness of 1.9 cm. There is a 1.6 x 1.5 x 1.7 cm echogenic lesion in the lower pole of the left kidney, suggestive of an angiomyolipoma, stable compared to the prior CT. Urinary bladder: Landeros catheter in the bladder. Liver: There is hepatic steatosis. Uterus: Post uterus. US/US renal BI* [id number] IMPRESSION: No hydronephrosis on either side.
[2023-11-08 10:32] LABS: C Reactive Protein 43.2 mg/L (0.0-4.9); Erythrocyte Sedimentation Rate 24 mm/hr (0-15)
[2023-11-08 10:40] LABS: Procalcitonin 0.13 ng/mL (0-0.5)
--- NOTE | 2023-11-08 11:06 | PM.MISC ---
Miscellaneous Note Purpose of Documentation: consult for PDPH Note: Upon entry into room patient sitting up in bed watching TV in no apparent distress. She states she's had a severe back ache since her L & D and a headache that began friday. The headache is always there, not improved by laying flat. Even overnight in bed still has headache, not particularly worse with sitting up, no photophobia. Headache waxes and wanes in severity, sometimes feels sharp. States only the hydrocodone has helped improve the headache. Symptoms not classic for PDPH. States her back pain is severe and that this is her main concern and that the back pain is preventing her from caring for her child, not really her headache. No point tenderness over Epidural puncture site. No erythema or swelling or purulent leakage or any leakage from site. Blood patch may only exacerbate the back pain. Discussed with patient and hospitalist. Do not suggest blood patch at this time, instead recommend imaging back d/t recent foreign object (epidural catheter and needle) to look for any signs of infection or abscess.
--- NOTE | 2023-11-08 11:57 | PM.CONSULT ---
Providers/Reason For Consult Consulting Physician/Specialty*: [facility]/Nephrology Reason for Consult*: JULIEN Attending Physician: Cordell Mortensen MD Primary Care Provider: Romeo Pena MD History of Present Illness History of Present Illness Lela Miramontes is a 27 year old female Patient is a 27-year-old female who was sent from OB clinic due to generalized weakness and headaches. Patient is 5 days, underwent bilateral salpingectomy on 11/02/2023. Other medical problems significant for cutaneous sarcoidosis. Lab data in the ER significant for elevated blood pressure of systolic in the 160s, creatinine is elevated at 2.5. Prior creatinine was normal in April. Patient had been taking ibuprofen 800 mg tabs 2-3 times a day since her discharge from the hospital recently. Review of Systems Narrative: Negative Medications/Allergies Home Medications Medication Instructions Recorded Confirmed Last Taken Type sertraline 50 mg tablet (Zoloft) 75 mg PO BEDTIME 06/25/22 11/07/23 11/06/23 20:00 History vitamin#30 30 mg iron-10 1 cap PO DAILY 03/28/23 11/07/23 11/07/23 08:00 History mg iron-folic acid 1 mg-omg3 capsule ferrous sulfate 325 mg (65 mg 325 mg PO BID Anemia 30 days #60 08/29/23 11/07/23 11/07/23 08:00 Rx iron) tablet tabs docusate sodium 100 mg capsule 100 mg PO BID #60 caps 11/03/23 11/07/23 11/07/23 08:00 Rx (Colace) hydrocodone 5 mg-acetaminophen 325 1 tab PO Q4H PRN pain #10 tabs 11/03/23 11/07/23 11/07/23 08:00 Rx mg tablet ibuprofen 800 mg tablet 800 mg PO TID PRN pain #60 tabs 11/03/23 11/07/23 11/07/23 08:00 Rx Allergies Allergy/AdvReac Type Severity Reaction Status Date / Time No Known Allergies Allergy Verified 11/07/23 17:01 Current Medications Generic Name Dose Route Start Last Admin Trade Name Freq PRN Reason Stop Dose Admin Hydrocodone Bitart/Acetaminophen 1 tab 11/07/23 22:08 11/08/23 08:33 Hydrocodone-Acetaminophen 5-325 Mg Tablet PO 1 tab Q4H PRN Administration pain Ferrous Sulfate 325 mg 11/08/23 09:00 11/08/23 08:33 Ferrous Sulfate Ec 325 Mg Tablet PO 325 mg BID SUKI Administration Heparin Sodium (Porcine) 5,000 unit 11/07/23 22:08 11/08/23 09:30 Heparin 5,000 Unit/Ml Inj 1 Ml SUBCUT Not Given Q12H SUKI Sodium Chloride 1,000 mls @ 100 mls/hr 11/07/23 22:08 11/08/23 08:34 Sodium Chloride 0.9% IV 100 mls/hr .Q10H SUKI Administration Osxqg-1-Hizx Ethyl Esters 1,000 mg 11/08/23 09:00 11/08/23 08:33 Maple-3 Fatty Acids 1,000 Mg Capsule PO 1,000 mg DAILY SUKI Administration Senna/Docusate Sodium 1 tab 11/08/23 09:00 11/08/23 08:33 Sennosides-Docusate Tablet PO Not Given DAILY SUKI Sodium Bicarbonate 650 mg 11/07/23 22:08 11/08/23 08:33 Sodium Bicarbonate 650 Mg Tablet PO 650 mg TID SUKI Administration PFSH Acute PFSH: Medical History No pertinent past medical history neghx: htn,dm,thyroid,dvt/pe PCP: Dr. Pena Anxiety Moderate major depression Sarcoidosis Surgical History No pertinent past surgical history Family History Mother Hypertension Denies family history of Colon cancer Ovarian cancer Prostate cancer Diabetes Breast cancer Cancer Uterine cancer Thyroid disease Stroke Social History Smoking and tobacco/nicotine status: never used tobacco/nicotine Vitals/I&O/Wt Last Vital Signs Temp 97.3 F L 11/08/23 11:46 Pulse 6 L 11/08/23 11:46 Resp 17 11/08/23 11:46 BP 132/87 11/08/23 11:46 Pulse Ox 98 11/08/23 11:46 O2 Del Method Room Air 11/08/23 11:46 11/07/23 11/08/23 11/08/23 22:59 06:59 14:59 Intake Total 240 / 240 1163.333 / 1163.333 Output Total 1250 / 1250 Balance -1010 / -1010 1163.333 / 1163.333 Weight last 48 hrs Weight 98.43 kg Weight 97.976 kg Weight 99.79 kg Physical Exam Narrative: Patient is awake alert no distress HEENT S1-S2 regular rate and rhythm per report Lungs clear per report 1+ pedal edema Urinary Catheter Management: Landeros: Cath Placed During This Visit: yes Reason for Continuing Indwelling Catheter: Other Urinary Catheter Date of Insertion: 11/07/23 Urinary Catheter Time of Insertion: 23:15 Data 11/08/23 04:57 11/08/23 04:57 A&P Assessment and plan (1) JULIEN (acute kidney injury): Acute kidney injury: Baseline creatinine was normal in April , now has JULIEN with a creatinine of 2.5 on presentation. Etiology likely NSAID induced JULIEN. Suspicion for sarcoid related renal disease including tubulointerstitial nephritis and nephrocalcinosis is low due to absence of hypercalcemia and no evidence of nephrocalcinosis on imaging. Other possible etiologies drug-induced AIN, -Noted urine electrolytes, negative urine eosinophils, M ACR less than 300 -Will also check serologies including complements hepatitis panel, JAYSON and ANCA -Check 2D echocardiogram -Avoid contrast studies, -Monitor renal function, continue IV fluids Hepatomegaly and splenomegaly: Question etiology, hepatitis panel negative Metabolic acidosis:, On bicarb tabs Patient evaluated using audiovisual cart. Time spent 40 minutes. Consult Attestations Medical Necessity Statement: Per medicine team Coding Level of Care Code Acute Code for [facility] Diagnoses JULIEN (acute kidney injury) N17.9
--- NOTE | 2023-11-08 12:10 | MRR_ITS ---
PROCEDURE INFORMATION: Exam: MR Lumbar Spine Without Contrast Exam date and time: 11/08/2023 1:29 PM Age: 27 years old Clinical indication: Prior surgery; Surgery date: 3-7 days post-operative; Surgery type: Tubal; Patient HX: Patient gave 6 days ago with low back pain and headache since; Additional info: Low back pain, headache x 6 days TECHNIQUE: Imaging protocol: Magnetic resonance imaging of the lumbar spine without contrast. COMPARISON: CT kidney stone [id number] 11/07/2023 6:56 PM FINDINGS: Bones/joints: Unremarkable. No fracture. Normal alignment. Spinal cord: Visualized cord, conus medullaris and cauda equina are unremarkable without compression. T12-L1: Small posterior disc bulge with mild anterior thecal sac compression. L1-L2: No significant disc bulge or herniation. No severe spinal canal stenosis. No significant neural foraminal narrowing. L2-L3: No significant disc bulge or herniation. No severe spinal canal stenosis. No significant neural foraminal narrowing. L3-L4: No significant disc bulge or herniation. No severe spinal canal stenosis. No significant neural foraminal narrowing. L4-L5: No significant disc bulge or herniation. No severe spinal canal stenosis. No significant neural foraminal narrowing. L5-S1: No significant disc bulge or herniation. No severe spinal canal stenosis. No significant neural foraminal narrowing. Soft tissues: Unremarkable. Kidneys and ureters: Simple cysts in the interpolar region of the left kidney measuring 2.1 cm. MR/MR lumbar spine wo con* [id number] IMPRESSION: No significant thecal sac compression or neural foraminal narrowing.
--- NOTE | 2023-11-08 15:45 | P.PN_ITS ---
Subjective 2 Subjective: Patient was seen this morning, she reports persistent low back pain, no urinary continence no bowel incontinence no saddle perineal anesthesia, no difficulty walking, no falls, no paresthesias, does report headaches, no nausea, no vomiting, no blurry vision, denies any flank pain, she does have a history of sarcoidosis which was diagnosed when she was 12, she tells me that it is really not giving her a problem she is never had any complication from it Vitals/I&O/Wt Last Vital Signs Temp 97.3 F L 11/08/23 11:46 Pulse 6 L 11/08/23 11:46 Resp 17 11/08/23 11:46 BP 132/87 11/08/23 11:46 Pulse Ox 98 11/08/23 11:46 O2 Del Method Room Air 11/08/23 11:46 11/08/23 11/08/23 11/08/23 06:59 14:59 22:59 Intake Total 240 / 240 1523.333 / 1523.333 Output Total 1250 / 1250 1825 / 1825 Balance -1010 / -1010 -301.667 / -301.667 Weight last 48 hrs Weight 98.43 kg Weight 97.976 kg Weight 99.79 kg Physical Exam 2 Const: COMMON NORMALS: no acute distress and patient oriented x3 Resp: COMMON NORMALS: normal respiratory effort, No retractions, No use of accessory muscles and clear to auscultation bilaterally AUSCULTATION: clear to auscultation bilaterally Cardio: COMMON NORMALS: regular rate, regular rhythm, S1 normal heart sound present and S2 normal heart sound present RATE: regular rate RHYTHM: r egular rhythm HEART SOUNDS: S1 normal heart sound present and S2 normal heart sound present GI: COMMON NORMALS: Normal to inspection, nondistended, normoactive bowel sounds present and non-tender Back/Pelvis: LUMBAR SPINE/LOWER BACK: Yes normal to inspection, No lumbar spinal tenderness, No paraspinal muscle tenderness and No paraspinal muscle spasm Extremity: COMMON NORMALS: no pedal edema Neuro: COMMON NORMALS: patient oriented x3 Psych: COMMON NORMALS: mental status grossly normal Urinary Catheter Management: Landeros: Cath Placed During This Visit: yes Reason for Continuing Indwelling Catheter: Other Urinary Catheter Date of Insertion: 11/07/23 Urinary Catheter Time of Insertion: 23:15 Data 11/08/23 04:57 11/08/23 04:57 A&P Assessment and plan (1) headache: (2) JULIEN (acute kidney injury): Plan JULIEN Hepatosplenomegaly: Etiology unknown Check hepatitis panel, negative Etiology unknown Previous creatinine was normal in April No ureteral injury as per the CT abdomen pelvis scan, please note that was done without contrast No signs of UTI Complaining of back pain I will request urinary studies, Will give her IV fluids, she has nonpitting edema check TSH I would like to request 24-hour urine studies as well If her creatinine does not improve with IV fluid hydration trial she will need nephro consultation in the morning Patient was taking ibuprofen 3 times a day 800 mg No history of smoking, alcohol use or recreational drugs No other history of renal disease in the family No signs of Alport syndrome in the family no hearing deficit or vision problems in her siblings She has cutaneous sarcoidosis, certainly sarcoidosis can result in acute renal failure ? Plan for today, monitor kidney function consult nephrology lumbar spinal MRI, CRP, sed rate, Pro-Riley, shira, monitor urine output, Attestations 2 Medical Necessity Statement*: Patient requires hospitalization for JULIEN, creatinine 2.4 Diagnoses headache O90.89; R51.9 JULIEN (acute kidney injury) N17.9
--- NOTE | 2023-11-08 16:03 | USCV_ITS ---
Lela Miramontes Age: 27 Gender: F : 1995 Exam Date: 11/08/2023 16:56 Ordering Phys: Nafisa Lockett MD Technologist: Aron Nelson Exam Location: [facility] Indication: edema BP: 152 / 81 HR: 56 Rhythm: Sinus Technical Quality: Adequate MEASUREMENTS (Male / Female) Normal Values 2D ECHO LV Diastolic Diameter PLAX 5.2 cm 4.2 - 5.9 / 3.9 - 5.3 cm IVS Diastolic Thickness 1.6 cm 0.6 - 1.0 / 0.6 - 0.9 cm IVS Systolic Thickness 2.5 cm LVPW Diastolic Thickness 1.1 cm 0.6 - 1.0 / 0.6 - 0.9 cm LVPW Systolic Thickness 1.9 cm LV Ejection Fraction 2D Teich 66.8 % LV Ejection Fraction MOD 4C 66.3 % LV Ejection Fraction MOD 2C 70.6 % LV Ejection Fraction 2C AL 70.7 % LA Diameter 3.9 cm RA Systolic Volume 4C AL 29.4 ml RA Systolic Volume 4C MOD 30.3 ml LA Sys Volume AL 56.5 cm cubed LA Sys Volume Index AL 27.7 cm cubed/m squared Aorta at Sinotubular Diameter 2.2 cm IVC Diameter 2.3 cm M-MODE LA Ao Ratio MM 1.3 MV E Point Septal Separation 0.9 cm AV Cusp Separation MM 1.9 cm DOPPLER AV Peak Velocity 122.0 cm/s LVOT Peak Velocity 82.0 cm/s MV Peak Velocity 120.0 cm/s MV Area PHT 5.6 cm squared Mitral E to A Ratio 1.5 TV Peak Velocity 348.0 cm/s TR Peak Velocity 365.0 cm/s TR Peak Gradient 53.3 mmHg TR Mean Velocity 275.0 cm/s TR Mean Gradient 32.9 mmHg TR Velocity Time Integral 97.1 cm PV Peak Velocity 109.0 cm/s RV Ejection Time 0.4 s FINDINGS Left Ventricle Mild concentric LVH. Normal LV systolic function. LVEF estimated at 65%. Right Ventricle Normal right ventricular size and systolic function. Right Atrium Normal right atrial size. Left Atrium Mildly increased left atrial size. Mitral Valve Structurally normal mitral valve. Trace mitral valve regurgitation. Aortic Valve Structurally normal trileaflet aortic valve. Tricuspid Valve Structurally normal tricuspid valve. Trace tricuspid valve regurgitation. Mildly elevated RV/pulmonary pressures estimated PAP 35-40 mmHg. Pulmonic Valve Structurally normal pulmonic valve. Mild pulmonary valve regurgitation. Pericardium No pericardial effusion. Aorta Normal size aortic root and proximal ascending aorta. IVC Mildly dilated IVC. CONCLUSIONS Normal LV systolic function. LVEF estimated at 65%. Mild concentric LVH. Mildly dilated LA. No significant valvular abnormality noted. Mildly elevated pulmonary pressures, 35-40 mmHg. Tad Silva MD (Electronically Signed) Final Date: 09 November 2023 13:19 S
[2023-11-08 16:15] LABS: Creatine Phosphokinase 35 U/L (26-192)
--- NOTE | 2023-11-08 22:08 | PC.NURSE ---
Patient complaining of sudden vision loss. Not able to follow this nurse's fingers, pupils dilated. Patient states she can not see staff, the clock, or her phone messages. Patient is also in tears and says she is scared. All other neuro assessments are WNL. Physician notified. Vital signs blood pressure 164/89, heart rate 75, oxygen 100% on room air, 20 respirations, temp 98.7. Upon physician coming to bedside, patient is still complains of having vision loss. Physician to order STAT labs and CT scan at this time. Plan of care ongoing.
--- NOTE | 2023-11-08 22:18 | CTR_ITS ---
PROCEDURE INFORMATION: Exam: CT Head Without Contrast Exam date and time: 11/08/2023 10:27 PM Age: 27 years old Clinical indication: Visual disturbance; Patient HX: New onset of vision loss. TECHNIQUE: Imaging protocol: Computed tomography of the head without contrast. Radiation optimization: All CT scans at this facility use at least one of these dose optimization techniques: automated exposure control; mA and/or kV adjustment per patient size (includes targeted exams where dose is matched to clinical indication); or iterative reconstruction. COMPARISON: CT head wo con* [id number] 11/07/2023 5:43 PM RADIATION DOSE METRICS: Total DLP (mGy-cm): 1030.94 FINDINGS: Brain: Normal. No hemorrhage. Unremarkable white matter. No mass effect. Cerebral ventricles: No ventriculomegaly. Paranasal sinuses: Visualized sinuses are unremarkable. No fluid levels. Mastoid air cells: Visualized mastoid air cells are well aerated. Bones: Unremarkable. No acute fracture. Soft tissues: Unremarkable. CT/CT head wo con* [id number] IMPRESSION: No acute intracranial abnormality.
[2023-11-08 23:48] LABS: Basophils % 0.1 %; Eosinophils # 0.1 10^3/uL (0.0-0.8); Eosinophils % 1.1 %; Hematocrit 34.3 % (36-47); Lymphocytes # 1.3 10^3/uL (0.8-4.8); Lymphocytes % 18.1 %; Mean Corpuscular HGB Conc 31.8 g/dL (30-55); Mean Corpuscular Hemoglobin 28.8 pg (27-33); Mean Corpuscular Volume 90.5 fl (85-98); Monocytes # 0.6 10^3/uL (0.2-0.9); Monocytes % 8.6 %; Neutrophils # 5.07 10^3/uL (1.8-7.7); Neutrophils % 71.7 %; Nucleated Red Blood Cells % 0 %; Platelet Count 175 10^3/cmm (157-399); Red Blood Count 3.79 10^6/uL (3.85-5.65); Red Cell Distribution Width 14.6 % (12.1-15.1); White Blood Count 7.08 10^3/uL (3.29-11.43)
[2023-11-09] VITALS (89 sets, daily range): BP systolic 118–183; BP diastolic 75–136; PULSE 60–148; RESP 14–24; TEMP 36.3–37.8; O2SAT 90–100
[2023-11-09 00:10] LABS: Alanine Aminotransferase 15 U/L (0-33); Albumin Level 3.1 g/dL (3.5-5.2); Alkaline Phosphatase 128 U/L (35-105); Anion Gap 17.5 (5-19); Aspartate Amino Transferase 11 U/L (0-32); Blood Urea Nitrogen 34 mg/dL (6-20); Calcium 8.1 mg/dL (8.5-10.5); Carbon Dioxide 18 mmol/L (22-29); Chloride 112 mmol/L (98-107); Creatinine Clr Calc Pharmacy 39.9537; Globulin 2.7 g/dL (1.3-4.6); Glomerular Filtration Rate 23.5 mL/min (90-130); Glucose 94 mg/dL (65-115); Osmolality Calculated 305 mOsm/kg (285-295); Potassium 3.5 mmol/L (3.5-5.1); Sodium 144 mmol/L (136-145); Total Bilirubin 0.3 mg/dL (0.15-1.2); Total Protein 5.8 g/dL (6.6-8.7)
--- NOTE | 2023-11-09 00:21 | W.PM.EVENTAC ---
Event Note Event Note: Nursing called to report patient having problems with vision. Upon presentation to the room, patient states that she is having problems seeing, stating that everything is blurry. She said prior to this she was having a lot of floaters, and seeing spots. She does endorse having a mild headache as well. States that she has been up walking around some, and was able to visit with her family a couple of hours ago. She was sent for a stat CT scan that did not demonstrate any acute abnormalities. Labs were also obtained and did not show any significant change from previous labs this morning. She did express to nursing that she was having a lot of problems with depression, and that her anxiety was getting the better of her. Upon follow-up, she was noted to be resting comfortably, and appeared to have some improvement with her anxiety. Event Notes Attestations Time Spent in Patient Care: 16 - 35 minutes Moderate MDM includes number and complexity of problems actively addressed during encounter, amount and/or complexity of data reviewed/ordered and described risk of complication, morbidity or mortality of management as documented
[2023-11-09] MEDS: HYDROcodone-acetaminophen 5-325 mg Tablet 1 TAB PO (01:21)
[2023-11-09] MEDS: magnesium sulfate premix 2 GM/50 ML PIGGYBACK IV ×3 (03:14→03:29)
[2023-11-09 03:17] LABS: Basophils % 0.2 %; Eosinophils % 0.4 %; Hematocrit 41.5 % (36-47); Lymphocytes # 1.6 10^3/uL (0.8-4.8); Lymphocytes % 17.9 %; Mean Corpuscular HGB Conc 31.3 g/dL (30-55); Mean Corpuscular Hemoglobin 28.6 pg (27-33); Mean Corpuscular Volume 91.2 fl (85-98); Mean Platelet Volume 11.2 fL (7.4-10.4); Monocytes # 0.5 10^3/uL (0.2-0.9); Neutrophils # 6.73 10^3/uL (1.8-7.7); Neutrophils % 75.6 %; Nucleated Red Blood Cells % 0 %; Platelet Count 184 10^3/cmm (157-399); Red Blood Count 4.55 10^6/uL (3.85-5.65); Red Cell Distribution Width 14.5 % (12.1-15.1); White Blood Count 8.92 10^3/uL (3.29-11.43)
[2023-11-09] MEDS: LORazepam 2 mg/mL INJ 1 mL IVP ×2 (03:26→03:46)
--- NOTE | 2023-11-09 03:33 | XRR_ITS ---
PROCEDURE INFORMATION: Exam: XR Chest Exam date and time: 11/09/2023 4:41 AM Age: 27 years old Clinical indication: Other vascular access device placement or adjustment; Central line, tunnelled; Patient HX: Check S/P central line placement TECHNIQUE: Imaging protocol: Radiologic exam of the chest. Views: 1 view. COMPARISON: CR (CHEST, ) 11/09/2023 4:05 AM FINDINGS: Tubes, catheters and devices: Endotracheal tube terminates approximately 1.5 cm above the smita. Enteric tube loops in the gastric fundus and terminates in the region of the gastric body. Right IJ central venous catheter terminates in the region of the superior cavoatrial junction. Lungs: Mild bibasilar airspace opacities. Pleural spaces: Unremarkable. No pleural effusion. No pneumothorax. Heart/Mediastinum: Unremarkable. No cardiomegaly. Bones/joints: Unremarkable. XR/XR chest 1V portable [id number] IMPRESSION: 1. Endotracheal tube terminates approximately 1.5 cm above the smita. 2. Right IJ central venous catheter terminates in the region of the superior cavoatrial junction. 3. Mild bibasilar airspace opacities may reflect atelectasis or pneumonia.
[2023-11-09 03:35] LABS: Alanine Aminotransferase 17 U/L (0-33); Albumin Level 3.4 g/dL (3.5-5.2); Alkaline Phosphatase 145 U/L (35-105); Aspartate Amino Transferase 13 U/L (0-32); Blood Urea Nitrogen 32 mg/dL (6-20); Calcium 8.6 mg/dL (8.5-10.5); Carbon Dioxide 14 mmol/L (22-29); Chloride 108 mmol/L (98-107); Creatinine Clr Calc Pharmacy 41.6184; Globulin 3.3 g/dL (1.3-4.6); Glomerular Filtration Rate 24.6 mL/min (90-130); Glucose 120 mg/dL (65-115); Osmolality Calculated 304 mOsm/kg (285-295); Sodium 143 mmol/L (136-145); Total Bilirubin 0.4 mg/dL (0.15-1.2); Total Protein 6.7 g/dL (6.6-8.7)
[2023-11-09 03:36] LABS: Anion Gap 24.9 (5-19); Potassium 3.9 mmol/L (3.5-5.1)
[2023-11-09] MEDS: levETIRAcetam 1,500 MG/100 ML PREMIX 400 MG IV (03:36)
--- NOTE | 2023-11-09 03:48 | PC.NURSE ---
IV Mag Bolus: Dr. Bright at bedside, verbal order to bolus 6gm of mag.
--- NOTE | 2023-11-09 03:53 | XRR_ITS ---
PROCEDURE INFORMATION: Exam: XR Chest Exam date and time: 11/09/2023 4:05 AM Age: 27 years old Clinical indication: Device placement; Ett placement (vent status); Patient HX: Check S/P et and og placement; Additional info: Post-intubation TECHNIQUE: Imaging protocol: Radiologic exam of the chest. Views: 1 view. COMPARISON: CT kidney stone [id number] 11/07/2023 6:56 PM FINDINGS: Tubes, catheters and devices: Endotracheal tube terminates approximately 1.5 cm above the smita. Enteric tube loops in the gastric fundus and terminates in the region of the gastric body. Lungs: Low lung volumes. Left basilar airspace opacities. Pleural spaces: Unremarkable. No pleural effusion. No pneumothorax. Heart/Mediastinum: Cardiomegaly. Bones/joints: Unremarkable. XR/XR chest 1V portable [id number] IMPRESSION: 1. Left basilar airspace opacities may reflect atelectasis or pneumonia. 2. Endotracheal tube terminates approximately 1.5 cm above the smita.
[2023-11-09] MEDS: etomidate 2 mg/mL INJ SDV 10 mL 30 MG IVP (03:58)
[2023-11-09] MEDS: succinylcholine 20 mg/mL SDV 10mL 100 MG IVP (03:59)
[2023-11-09] MEDS: propofol 1,000 MG/100 ML INJ 8.86 MG IV (04:01)
[2023-11-09 04:14] LABS: Magnesium 2.2 mg/dL (1.7-2.3)
[2023-11-09] MEDS: fentaNYL 1,000 MCG/100 ML BAG 15 MCG IV (04:31)
--- NOTE | 2023-11-09 04:41 | CTR_ITS ---
PROCEDURE INFORMATION: Exam: CTA Head With Contrast, Venography Exam date and time: 11/09/2023 6:23 AM Age: 27 years old Clinical indication: Other: Eclampsia, ; additional info: Eclampsia, CT venogram TECHNIQUE: Imaging protocol: Computed tomography angiography of the head with contrast. Exam focused on the veins. 3D rendering (Not supervised by radiologist): MIP and/or 3D reconstructed images were created by the technologist. Radiation optimization: All CT scans at this facility use at least one of these dose optimization techniques: automated exposure control; mA and/or kV adjustment per patient size (includes targeted exams where dose is matched to clinical indication); or iterative reconstruction. Contrast material: OMNI 350; Contrast volume: 100 ml; Contrast route: INTRAVENOUS (IV); COMPARISON: CT head wo con* [id number] 11/08/2023 10:27 PM RADIATION DOSE METRICS: Total DLP (mGy-cm): 2110.88 FINDINGS: Superior sagittal sinus: Patent. Straight sinus: Patent. Transverse sinuses: Patent. Sigmoid sinuses: Patent. Internal jugular veins: Limited visualized internal jugular veins are patent. Brain: No enhancing intracranial lesion, edema, mass effect, or midline shift. Cerebral ventricles: No ventriculomegaly. Soft tissues: Unremarkable. CT/CT angio head [id number] IMPRESSION: No venous thrombosis.
--- NOTE | 2023-11-09 04:57 | P.EN_ITS ---
Event Note Event Note: Approximately 0257 rapid response was called to patient room for seizure activity. Patient was post-ictal on entering the room. She began to come out of it after a couple of minutes, but was unable to respond effectively. She was then transferred to ICU. Magnesium was started through peripheral line, but patient had additional seizure before completion of the infusion. She was administered ativan x 2. During post-ictal state, Central line was attempted, but unsuccessful as patient began to stir and was difficult to manage. Decision to intubate was made. Dr. Bedoya was present and able to intubate after administration of Etomidate and Succinylcholine. Central line was then placed an d Keppra infusion started. Spoke with Dr. Armenta from Neurology who has agreed to see patient in the am. Will order CT venogram at her request. Orders given to continue with Magnesium infusion at rate of 1 gram per hour given her recent JULIEN. Continue with hourly neuro and reflex testing, and q4 mag levels, and strict I/O's. i have spoken with family and updated on the situation and plan of care.
--- NOTE | 2023-11-09 05:06 | PC.NURSE ---
Patient reported sudden vision loss to ANDRES Guzmán around 2149, who then relayed it to me immediately after. Upon assessing the patient, patient was in tears saying she could not see staff, the clock or her phone messages. Patient was unable to give an accurate description on what it was that she was seeing, other than fuzzy. She stated she was having trouble seeing towards the beginning of the shift, but did not report this to nursing staff until sudden vision loss occurred. All other neuro checks were WNL. Vital signs were obtained, blood pressure 164/89, heartrate 75, oxygen 100% on room air, respirations 20, temp 98.7. Patient was still complaining of headache. Dr. Bright was contacted at 2158 by this nurse about her change in status. Physician then came to bedside to lay eyes on the patient. Physician ordered CT scan, CMP, and CBC. Charlotte was called by CASEY Bautista to update on patient change in condition at 2200. Fiance at bedside at 2230. Patient still complaining of vision loss at 0000, Neuro checks WNL. Family arrived at bedside at 0200. Mother of the patient raised concern to this nurse about patient be possibly preeclamptic and that she was having some of the same symptoms around the time of labor. Dr. Bright was contacted via Voalte at 022 about the possibly of the preeclampsia given her symptoms. Physician replied immediately and stated that he would not associate her pressures with preeclampsia and that her liver enzymes were WNL. At this time patient seemed to be more lethargic, but could tell this nurse her name and birthday. At 0253, family yelled out at the nurses station that they needed a nurse in the room. This nurse responded and upon reaching he bedside, patient was actively having a tonic-clonic seizure and foaming out of the mouth. Patient was turned on her side to protect her airway and oxygen was applied. CASEY Young called a rapid response at 0256. At bedside was Li RN, Jeremy, RN, Jennifer, RN, Julia, RT, Caro, RN/Quality Assistant, Carson, Thread Separator, Dr. Bright, and Dr. Bedoya. At this time, patients oxygen saturation at 25%. Unable to obtain a blood pressure at this time due to patient seizing and cuff coming off of the patient. Non-rebreather mask was applied with O2 sats returning to 90%. Seizure lasted approximately 2 minutes. Suction set up and patient mouth suctioned following seizure activity. Patient unable to speak or answer any questions. Per doctors orders, patient was to transfer to ICU. Patient stabilized and transferred to ICU 4 by ELIU Tello and this nurse at 0305. Bedside report given to CASEY Jefferson. Family escorted to ICU waiting room.
[2023-11-09 05:28] LABS: ABG PCO2 35.5 mmHg (35-45); ABG PH Result 7.36 (7.35-7.45); Arterial Blood Gas Hematocrit 40.7 % (37-47); Base Excess ABG -4.8 mmol/L (-2.0-2.0); Blood Gas Allen Test Pos; Blood Gas Operator Identificat JDB; Blood Gas Sample Site Radial, right; Blood Gas Sample Type Arterial; Oxygen Device VENT; PO2 FiO2 Ratio Arterial Blood 268
[2023-11-09] MEDS: magnesium sulfate premix 20 GM/500 ML BAG IV (05:31)
[2023-11-09] MEDS: dextrose 5%-lactated ringers 1,000 ML 125 ML IV (05:38)
[2023-11-09] MEDS: iohexol 350 mg/mL 500 mL Btl (per mL) IV (06:30)
[2023-11-09] MEDS: propofol 1,000 MG/100 ML INJ 23.62 MG IV (07:00)
--- NOTE | 2023-11-09 07:08 | PC.NURSE ---
Intubation/Central line: Dr. Bedoya at bedside. Intubated @0400. Central line @0423. Verbal orders for 30mg boluses over 1 minute for pt sedation @0402, 0413, 0416, and 0421. Dr. Bright gave verbal order to titrate Propofol up faster than protocol for appropriate sedation.
--- NOTE | 2023-11-09 07:28 | XRR_ITS ---
PROCEDURE INFORMATION: Exam: XR Chest Exam date and time: 11/09/2023 9:23 AM Age: 27 years old Clinical indication: Device placement; Ett placement (vent status); Additional info: Intubation TECHNIQUE: Imaging protocol: Radiologic exam of the chest. Views: 1 view. COMPARISON: CR (CHEST, ) 11/09/2023 4:41 AM FINDINGS: Tubes, catheters and devices: Endotracheal tube terminates approximately 3.2 cm above the smita. Enteric tube loops in the gastric fundus and terminates in the region of the gastric body. Right IJ central venous catheter terminates in the region of the superior cavoatrial junction. Lungs: Improved bibasilar airspace opacities. Pleural spaces: Unremarkable. No pleural effusion. No pneumothorax. Heart/Mediastinum: Unremarkable. No cardiomegaly. Bones/joints: Unremarkable. XR/XR chest 1V portable [id number] IMPRESSION: 1. Endotracheal tube terminates approximately 3.2 cm above the smita. 2. Improved bibasilar airspace opacities.
[2023-11-09 07:45] LABS: Glucose Point of Care 112 mg/dL (70-110)
[2023-11-09 07:58] LABS: Magnesium 4.6 mg/dL (1.7-2.3)
[2023-11-09] MEDS: sodium bicarbonate 150 MEQ in dextrose 5% 1,000 ML 50 MEQ IV (08:08)
--- NOTE | 2023-11-09 08:27 | P.CONIM_ITS ---
Providers/Reason for Consult 2 Consulting Physican/Specialty*: Monique García DO/OBGYN Reason for Consult*: 27-year-old G3, P3 who delivered 11/02/19 24 via uncomplicated spontaneous vaginal delivery and tubal sterilization. Patient was readmitted on 11/07/2023 after an ER visit with complaints of back pain and headache since delivery. Head CT?negative . Admission blood pressure noted with a systolic of 180, with a creatinine of 2.4. Renal ultrasound?unremarkable and nephrology has been consulted as well. CONCRETE SPREADER consultation requested this am by Dr. Mortensen d/t Seizures x 2 early this a.m. Patient was transferred to ICU from [facility] and treated for seizures with Keppra and intubated. Patient was started on magnesium sulfate with a 6 g bolus 1 g maintenance dose. Urine output recordings by Landeros catheter has been greater than 30 mL/h. Requesting Physcian: Cordell Mortensen MD Attending Physician: Cordell Mortensen MD Primary CONCRETE SPREADER: Dr. Laron CHAPARRO Primary Care Provider: Romeo Pena MD CONCRETE SPREADER Consult HPI History of Present Illness Lela Miramontes is a 27 year old female G3, P3 status post and tubal sterilization on 11/02/2023. And discharged to home on 11/03/2023. Patient was readmitted on 11/07/23 to [facility] floor with complaints of back pain and headaches since delivery. In review of the ER notes patient ranked her back pain 10/10 even though she was taking ibuprofen and hydrocodone. Vital sign review indicates elevated systolic blood pressures, and elevated creatinine of 2.4. Physical exam?patient is sedated and intubated at present time. VS?stable BP 125/86 Face appears edematous, pupils are reactive. Abdomen?soft, infraumbilical incision intact with bruising noted. Fundus well below umbilicus. Lochia?light. Extremities?pitting edema in upper and lower extremities. Lower extremities reflexes +3/4 bilaterally. Medications/Allergies Home Medications Medication Instructions Recorded Confirmed Last Taken Type sertraline 50 mg tablet (Zoloft) 75 mg PO BEDTIME 06/25/22 11/07/23 11/06/23 20:00 History vitamin#30 30 mg iron-10 1 cap PO DAILY 03/28/23 11/07/23 11/07/23 08:00 History mg iron-folic acid 1 mg-omg3 capsule ferrous sulfate 325 mg (65 mg 325 mg PO BID Anemia 30 days #60 08/29/23 11/07/23 11/07/23 08:00 Rx iron) tablet tabs docusate sodium 100 mg capsule 100 mg PO BID #60 caps 11/03/23 11/07/23 11/07/23 08:00 Rx (Colace) hydrocodone 5 mg-acetaminophen 325 1 tab PO Q4H PRN pain #10 tabs 11/03/23 11/07/23 11/07/23 08:00 Rx mg tablet ibuprofen 800 mg tablet 800 mg PO TID PRN pain #60 tabs 11/03/23 11/07/23 11/07/23 08:00 Rx Allergies Allergy/AdvReac Type Severity Reaction Status Date / Time No Known Allergies Allergy Verified 11/07/23 17:01 Current Medications Generic Name Dose Route Start Last Admin Trade Name Freq PRN Reason Stop Dose Admin Hydrocodone Bitart/Acetaminophen 1 tab 11/07/23 22:08 11/09/23 01:21 Hydrocodone-Acetaminophen 5-325 Mg Tablet PO 1 tab Q4H PRN Administration pain Ferrous Sulfate 325 mg 11/08/23 09:00 11/08/23 17:31 Ferrous Sulfate Ec 325 Mg Tablet PO 325 mg BID SUKI Administration Heparin Sodium (Porcine) 5,000 unit 11/07/23 22:08 11/08/23 21:04 Heparin 5,000 Unit/Ml Inj 1 Ml SUBCUT Not Given Q12H SUKI Magnesium Sulfate 2 gm in 50 mls @ 50 mls/hr 11/09/23 03:15 11/09/23 03:33 Magnesium Sulfate Premix IV 11/11/23 04:14 Infused ONCE SUKI Infusion Propofol 1,000 mg in 100 mls @ 0 mls/hr 11/09/23 04:00 11/09/23 07:00 Diprivan IV 40 mcg/kg/min .Q0M SUKI 23.62 mls/hr Administration Protocol Per Protocol Magnesium Sulfate 20 gm in 500 mls @ 25 mls/hr 11/09/23 04:15 11/09/23 05:31 Magnesium Sulfate Premix IV 25 mls/hr .Q20H SUKI Administration Fentanyl 1,000 mcg in 100 mls @ 0 mls/hr 11/09/23 04:30 11/09/23 04:31 Sublimaze IV 150 mcg/hr .Q0M SUKI 15 mls/hr Administration Protocol Per Protocol Sodium Bicarbonate 150 meq/ 1,150 mls @ 100 mls/hr 11/09/23 09:45 11/09/23 08:08 Dextrose IV 50 mls/hr .Q57C87H SUKI Administration Bxzbo-2-Jyau Ethyl Esters 1,000 mg 11/08/23 09:00 11/08/23 08:33 [place]-3 Fatty Acids 1,000 Mg Capsule PO 1,000 mg DAILY SUKI Administration Senna/Docusate Sodium 1 tab 11/08/23 09:00 11/08/23 08:33 Sennosides-Docusate Tablet PO Not Given DAILY SUKI Sodium Bicarbonate 650 mg 11/07/23 22:08 11/08/23 21:03 Sodium Bicarbonate 650 Mg Tablet PO 650 mg TID SUKI Administration PFSH CONCRETE SPREADER 2 PFSH: Medical History No pertinent past medical history neghx: htn,dm,thyroid,dvt/pe PCP: Dr. Pena Anxiety Moderate major depression Sarcoidosis Surgical History No pertinent past surgical history Family History Mother Hypertension Denies family history of Colon cancer Ovarian cancer Prostate cancer Diabetes Breast cancer Cancer Uterine cancer Thyroid disease Stroke Social History Smoking and tobacco/nicotine status: never used tobacco/nicotine Contraception: Contraception History Comment: Tubal sterilization 11/03/2023. Vitals/I&O/Wt Last Vital Signs Temp 97.8 F 11/09/23 06:36 Pulse 70 11/09/23 06:36 Resp 16 11/09/23 08:11 BP 125/86 11/09/23 06:36 Pulse Ox 98 11/09/23 08:11 O2 Del Method Mechanical Ventilation 11/09/23 06:36 FiO2 50 11/09/23 08:11 11/08/23 11/09/23 11/09/23 22:59 06:59 14:59 Intake Total 1360 / 2883.333 857.924 / 3741.257 65.564 / 65.564 Output Total 300 / 2125 2500 / 4625 Balance 1060 / 758.333 -1642.076 / -883.743 65.564 / 65.564 Weight last 48 hrs Weight 97.976 kg Weight 98.43 kg Weight 97.976 kg Weight 99.79 kg Physical Exam 2 Urinary Catheter Management: Landeros: Cath Placed During This Visit: yes Reason for Continuing Indwelling Catheter: Accurate Measurement of Urinary Output in Critically Ill Patients Urinary Catheter Date of Insertion: 11/07/23 Urinary Catheter Time of Insertion: 23:15 Data 11/09/23 03:11 11/09/23 03:11 A&P Assessment and plan (1) Eclampsia: 1. Agree with attempting weaning of vent today depending on patient tolerance. 2. Continue magnesium sulfate x 24 hours then reevaluate for discontinuation. 3. Continue mag levels every 4 to 6 hours. 4. After weaning from the vent, if BP elevates start labetalol per OB protocol. 5. Consider breast pump, if patient desires to continue breast-feeding. (2) JULIEN (acute kidney injury): (3) headache: (4) Vision loss: Coding Level of Care Code Acute Code for [facility] Fwd Diagnoses Eclampsia O15.9 JULIEN (acute kidney injury) N17.9 headache O90.89; R51.9 Vision loss H54.7
[2023-11-09 09:14] LABS: Total Volume, Urine 5650 mL
[2023-11-09 09:27] LABS: Urine Total Protein 12.2 mg/dL (0-150)
[2023-11-09 09:29] LABS: Urine Total Protein 24 Hour 689.3 mg/24hr (0-150)
[2023-11-09] MEDS: sennosides-docusate Tablet 1 TAB PO (10:00)
[2023-11-09] MEDS: ferrous sulfate EC 325 mg Tablet PO (10:01)
--- NOTE | 2023-11-09 10:04 | PM.CONSULT ---
Providers/Reason For Consult Consulting Physician/Specialty*: Dr. Bright/Hospitalist Reason for Consult*: Eclampsia, multiple seizures Attending Physician: Cordell Mortensen MD Primary Care Provider: Romeo Pena MD History of Present Illness History of Present Illness Lela Miramontes is a 27 year old woman who had an uncomplicated vaginal delivery of full term infant on 11/02/23. She presented with complaint of back pain 11/07/2023 and was noted to have an elevated creatinine of 2.4. She had been taking quite a bit of ibuprofen for complaint of headache. No previous history of kidney disease or hypertension. She was seen by nephrology. Her blood pressure was slightly elevated with systolic in the 160s. Dr. 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 She continued to experience low-grade back pain and headache and then at 4 AM today she had 2 generalized tonic-clonic seizures. She was extremely agitated in the postictal state and could not be managed so she was intubated and sedated. She received 1500 mg of Keppra IV and magnesium. I talked with Dr. Bright and recommended CT venogram to make sure she did not have central venous thrombosis as a complication of her state. That study was performed this morning and was unremarkable. Her significant other indicates that she has only taken a few of the 800 mg ibuprofen tablets since she delivered the baby. Maybe she has taken 2 a day. He was called in to see her last night because she said she could not see. She told them that she could not see anything. Not long after he arrived she turned her head to the right and stopped responding to him. Her mother came to the bedside and the patient started responding again. She slept off and on. Then at 4 in the morning she again turned her head to the right and seem to smile. Her face was stiff. She started jerking and her significant other ran out of the room to get help. Dr. Bright was called immediately and came to the bedside. He found that the patient was unable to respond effectively. She was transferred to ICU. Magnesium was started through the peripheral IV but she had a seizure-like event and was so uncooperative that she had to be intubated in order to obtain central line and initiate magnesium IV. Patient's significant other has been with her for 6 years. She has not complained of headaches up until recently. She has no history of seizures that he is aware. Review of Systems Const: Reports: body aches and fatigue (Since delivery) ENMT: Reports: other (Dr. Bright was called to see her at midnight for blurred vision) GI: Reports: other (Hepatosplenomegaly by CT with fatty infiltration of the liver by ultrasound) : Reports: other (Acute renal failure. Last creatinine in April was normal.) Skin/Breast: Reports: other (History of sarcoid of the skin) Neuro: Reports: headache(s) Psych: Reports: anxiety and depression Medications/Allergies Home Medications Medication Instructions Recorded Confirmed Last Taken Type sertraline 50 mg tablet (Zoloft) 75 mg PO BEDTIME 06/25/22 11/07/23 11/06/23 20:00 History vitamin#30 30 mg iron-10 1 cap PO DAILY 03/28/23 11/07/23 11/07/23 08:00 History mg iron-folic acid 1 mg-omg3 capsule ferrous sulfate 325 mg (65 mg 325 mg PO BID Anemia 30 days #60 08/29/23 11/07/23 11/07/23 08:00 Rx iron) tablet tabs docusate sodium 100 mg capsule 100 mg PO BID #60 caps 11/03/23 11/07/23 11/07/23 08:00 Rx (Colace) hydrocodone 5 mg-acetaminophen 325 1 tab PO Q4H PRN pain #10 tabs 11/03/23 11/07/23 11/07/23 08:00 Rx mg tablet ibuprofen 800 mg tablet 800 mg PO TID PRN pain #60 tabs 11/03/23 11/07/23 11/07/23 08:00 Rx Allergies Allergy/AdvReac Type Severity Reaction Status Date / Time No Known Allergies Allergy Verified 11/07/23 17:01 Current Medications Generic Name Dose Route Start Last Admin Trade Name Freq PRN Reason Stop Dose Admin Ferrous Sulfate 325 mg 11/08/23 09:00 11/09/23 10:01 Ferrous Sulfate Ec 325 Mg Tablet PO 325 mg BID SUKI Administration Heparin Sodium (Porcine) 5,000 unit 11/07/23 22:08 11/08/23 21:04 Heparin 5,000 Unit/Ml Inj 1 Ml SUBCUT Not Given Q12H USKI Magnesium Sulfate 2 gm in 50 mls @ 50 mls/hr 11/09/23 03:15 11/09/23 03:33 Magnesium Sulfate Premix IV 11/11/23 04:14 Infused ONCE SUKI Infusion Propofol 1,000 mg in 100 mls @ 0 mls/hr 11/09/23 04:00 11/09/23 10:02 Diprivan IV 20 mcg/kg/min .Q0M SUKI 11.81 mls/hr Titration Protocol Per Protocol Magnesium Sulfate 20 gm in 500 mls @ 25 mls/hr 11/09/23 04:15 11/09/23 05:31 Magnesium Sulfate Premix IV 25 mls/hr .Q20H SUKI Administration Fentanyl 1,000 mcg in 100 mls @ 0 mls/hr 11/09/23 04:30 11/09/23 10:02 Sublimaze IV 75 mcg/hr .Q0M SUKI 7.5 mls/hr Titration Protocol Per Protocol Sodium Bicarbonate 150 meq/ 1,150 mls @ 50 mls/hr 11/09/23 09:45 11/09/23 08:08 Dextrose IV 50 mls/hr .Q23H SUKI Administration Apdro-8-Fqur Ethyl Esters 1,000 mg 11/08/23 09:00 11/09/23 10:02 [place]-3 Fatty Acids 1,000 Mg Capsule PO Not Given DAILY SUKI Senna/Docusate Sodium 1 tab 11/08/23 09:00 11/09/23 10:00 Sennosides-Docusate Tablet PO 1 tab DAILY SUKI Administration PFSH Acute PFSH: Medical History No pertinent past medical history neghx: htn,dm,thyroid,dvt/pe PCP: Dr. Pena Anxiety Moderate major depression Sarcoidosis Surgical History No pertinent past surgical history Family History Mother Hypertension Denies family history of Colon cancer Ovarian cancer Prostate cancer Diabetes Breast cancer Cancer Uterine cancer Thyroid disease Stroke Social History Smoking and tobacco/nicotine status: never used tobacco/nicotine Vitals/I&O/Wt Last Vital Signs Temp 97.4 F L 11/09/23 07:30 Pulse 78 11/09/23 09:15 Resp 16 11/09/23 08:11 BP 118/79 11/09/23 09:15 Pulse Ox 98 11/09/23 09:15 O2 Del Method Mechanical Ventilation 11/09/23 07:30 FiO2 50 11/09/23 08:11 11/08/23 11/09/23 11/09/23 22:59 06:59 14:59 Intake Total 1360 / 2883.333 857.924 / 3741.257 611.062 / 611.062 Output Total 300 / 2125 2500 / 4625 800 / 800 Balance 1060 / 758.333 -1642.076 / -883.743 -188.938 / -188.938 Weight last 48 hrs Weight 216 lb Weight 217 lb Weight 216 lb Weight 220 lb Physical Exam Narrative: The patient is still on a low-dose of fentanyl and sedated on propofol. Intubated. She was able to follow simple commands ( look to your right, look to your left ) with increased latency. She was restless and constantly moving. Cranial nerves: She responded to threat in both temporal robertson. Eye movements spontaneously fall. Facial movements symmetric. Motor exam revealed that she was moving all 4 extremities briskly and with strong effort. Both toes upgoing. Chest: Clear to auscultation Cardiovascular: S1-S2 normal without murmur or gallop Extremities: Question mild diffuse edema Urinary Catheter Management: Landeros: Cath Placed During This Visit: yes Reason for Continuing Indwelling Catheter: Accurate Measurement of Urinary Output in Critically Ill Patients Urinary Catheter Date of Insertion: 11/07/23 Urinary Catheter Time of Insertion: 23:15 Data 11/09/23 03:11 11/09/23 03:11 Other Imaging: My impression: CT head 11/08/[address] angiogram with venous phase this morning at 04 40 shows no sign of central venous thrombosis and normal arterial supply A&P Assessment and plan (1) Focal onset clonic epileptic seizure: 27-year-old woman with no previous history of epilepsy who presented with headache, marked elevation of serum creatinine, back pain (her MRI of the lumbosacral spine was entirely unremarkable reviewed by me). She had a focal onset seizure this morning observed by her significant other with eversion of the eyes and head to the right suggesting left frontal onset and followed by what sounds like a generalized tonic-clonic seizure. He was not a full witness. Dr. Bright indicated that he witnessed a generalized seizure in the ICU. With the combination of acute renal failure, mild hypertension, state and normal venogram I would presume that all of her symptoms are secondary to eclampsia. I would leave her on Keppra 1000 mg twice daily for now and plan on MRI of the brain after discharge from the hospital. Her CT scans of the head are beautifully done and with no focal abnormalities and MRI does not need to be done as an inpatient. Plan EEG as an outpatient. I would assume she could be extubated today if all goes well. Please let me know if there are further neurologic problems. I talked with her significant other and his mother and took time to answer questions and explained the process of her illness. (2) Eclampsia: Coding Level of Care Code Acute Code for [facility] Fwd Diagnoses Focal onset clonic epileptic seizure G40.109 Eclampsia O15.9
[2023-11-09] MEDS: heparin 5,000 unit/mL INJ 1 mL 5000 UNIT SUBCUT ×2 (10:13→21:46)
[2023-11-09] MEDS: cefTRIAXone 1,000 mg SDV 1000 MG IVP (10:15)
[2023-11-09 10:33] LABS: Estmated Average Glucose 85; Hemoglobin A1C 4.6 % (4.0-6.0)
[2023-11-09 11:55] LABS: Anion Gap 20.2 (5-19); Blood Urea Nitrogen 31 mg/dL (6-20); Calcium 8.4 mg/dL (8.5-10.5); Carbon Dioxide 20 mmol/L (22-29); Chloride 109 mmol/L (98-107); Creatinine Clr Calc Pharmacy 45.2898; Glomerular Filtration Rate 27.2 mL/min (90-130); Glucose 107 mg/dL (65-115); Osmolality Calculated 309 mOsm/kg (285-295); Potassium 3.2 mmol/L (3.5-5.1); Sodium 146 mmol/L (136-145)
--- NOTE | 2023-11-09 11:57 | P.CONIM_ITS ---
Providers/Reason for Consult 2 Consulting Physican/Specialty*: Monique García DO Reason for Consult*: 27yo female s/p and Elective St erilization with elevated BP, MAYES, and Low back pain with elevated Creat of 2.5 pt was admitted to Med/Surg for management of back pain and Creat. Attending Physician: Cordell Mortensen MD Primary EMERGENCY SPILL RESPONSE TECHNICIAN: Dr. Laron CHAPARRO Primary Care Provider: Romeo Pena MD EMERGENCY SPILL RESPONSE TECHNICIAN Consult HPI History of Present Illness Lela Miramontes is a 27 year old female s/p and Elective Sterilization 11/02/23 discharged on 11/03/23 after uncomplicated delivery. Pt readmitted to hospital on 11/06 after being seen in ER with c/o low back pain and unrelenting MAYES rated 10/10, unrelieved with Ibuprofen and Hydrocodone and elevated BP. Pt also c/o lower extremity swell since after delivery. Pt has been treated for her low back pain, and labs followed for her elevated Creat. from 11/06 thru 11/08 am. Pt had multiple seizures 11/09/23 early am, and was Intubated and treated with Keppra and Magnesium 6gm bolus and 1gm maintenance. Her head CT was neg . Pt BP has been elevated > 24hr with MAYES, total body edema involving her face, upper and lower extremities, with elevated 24hr urine protein supporting Dx of Severe Preeclampsia, Eclampsia with severe features and Proteinuria. The Acute Renal Injury is secondary to Severe PIH and I would expect it to resolve over the next few weeks since she is having adequate urine output and has normal renal scans. Pt BP now is 118/79 and orders have been given for weaning off the Vent. I will follow BP closely with treatment and continue MgSO4 x 24 hr. I reviewed this with pt family at bedside. Thanks for allowing me to consult and I will assist in management of pt BP as she is still consider to be and Obstretrical pt. Medications/Allergies Home Medications Medication Instructions Recorded Confirmed Last Taken Type sertraline 50 mg tablet (Zoloft) 75 mg PO BEDTIME 06/25/22 11/07/23 11/06/23 20:00 History vitamin#30 30 mg iron-10 1 cap PO DAILY 03/28/23 11/07/23 11/07/23 08:00 History mg iron-folic acid 1 mg-omg3 capsule ferrous sulfate 325 mg (65 mg 325 mg PO BID Anemia 30 days #60 08/29/23 11/07/23 11/07/23 08:00 Rx iron) tablet tabs docusate sodium 100 mg capsule 100 mg PO BID #60 caps 11/03/23 11/07/23 11/07/23 08:00 Rx (Colace) hydrocodone 5 mg-acetaminophen 325 1 tab PO Q4H PRN pain #10 tabs 11/03/23 11/07/23 11/07/23 08:00 Rx mg tablet ibuprofen 800 mg tablet 800 mg PO TID PRN pain #60 tabs 11/03/23 11/07/23 11/07/23 08:00 Rx Allergies Allergy/AdvReac Type Severity Reaction Status Date / Time No Known Allergies Allergy Verified 11/07/23 17:01 Current Medications Generic Name Dose Route Start Last Admin Trade Name Freq PRN Reason Stop Dose Admin Ceftriaxone Sodium 1,000 mg 11/09/23 10:00 11/09/23 10:15 Ceftriaxone 1,000 Mg Sdv IVP 1,000 mg Q24H SUKI Administration Protocol Ferrous Sulfate 325 mg 11/08/23 09:00 11/09/23 10:01 Ferrous Sulfate Ec 325 Mg Tablet PO 325 mg BID SUKI Administration Heparin Sodium (Porcine) 5,000 unit 11/07/23 22:08 11/09/23 10:13 Heparin 5,000 Unit/Ml Inj 1 Ml SUBCUT 5,000 unit Q12H SUKI Administration Magnesium Sulfate 2 gm in 50 mls @ 50 mls/hr 11/09/23 03:15 11/09/23 03:33 Magnesium Sulfate Premix IV 11/11/23 04:14 Infused ONCE SUKI Infusion Propofol 1,000 mg in 100 mls @ 0 mls/hr 11/09/23 04:00 11/09/23 11:54 Diprivan IV 0 mcg/kg/min .Q0M SUKI 0 mls/hr Titration Protocol Per Protocol Magnesium Sulfate 20 gm in 500 mls @ 25 mls/hr 11/09/23 04:15 11/09/23 05:31 Magnesium Sulfate Premix IV 25 mls/hr .Q20H SUKI Administration Fentanyl 1,000 mcg in 100 mls @ 0 mls/hr 11/09/23 04:30 11/09/23 11:54 Sublimaze IV 0 mcg/hr .Q0M SUKI 0 mls/hr Titration Protocol Per Protocol Sodium Bicarbonate 150 meq/ 1,150 mls @ 50 mls/hr 11/09/23 09:45 11/09/23 08:08 Dextrose IV 50 mls/hr .Q23H SUKI Administration Kqmoo-5-Hdae Ethyl Esters 1,000 mg 11/08/23 09:00 11/09/23 10:02 [place]-3 Fatty Acids 1,000 Mg Capsule PO Not Given DAILY SUKI Senna/Docusate Sodium 1 tab 11/08/23 09:00 11/09/23 10:00 Sennosides-Docusate Tablet PO 1 tab DAILY SUKI Administration PFSH EMERGENCY SPILL RESPONSE TECHNICIAN 2 PFSH: Medical History No pertinent past medical history neghx: htn,dm,thyroid,dvt/pe PCP: Dr. Pena Anxiety Moderate major depression Sarcoidosis Surgical History No pertinent past surgical history Family History Mother Hypertension Denies family history of Colon cancer Ovarian cancer Prostate cancer Diabetes Breast cancer Cancer Uterine cancer Thyroid disease Stroke Social History Smoking and tobacco/nicotine status: never used tobacco/nicotine Vitals/I&O/Wt Last Vital Signs Temp 97.4 F L 11/09/23 07:30 Pulse 78 11/09/23 10:07 Resp 14 11/09/23 10:07 BP 118/79 11/09/23 09:15 Pulse Ox 98 11/09/23 10:07 O2 Del Method Mechanical Ventilation 11/09/23 10:07 FiO2 30 11/09/23 11:12 11/08/23 11/09/23 11/09/23 22:59 06:59 14:59 Intake Total 1360 / 2883.333 857.924 / 3741.257 632.649 / 632.649 Output Total 300 / 2125 2500 / 4625 800 / 800 Balance 1060 / 758.333 -1642.076 / -883.743 -167.351 / -167.351 Weight last 48 hrs Weight 97.976 kg Weight 98.43 kg Weight 97.976 kg Weight 99.79 kg Physical Exam 2 Urinary Catheter Management: Landeros: Cath Placed During This Visit: yes Reason for Continuing Indwelling Catheter: Accurate Measurement of Urinary Output in Critically Ill Patients Urinary Catheter Date of Insertion: 11/07/23 Urinary Catheter Time of Insertion: 23:15 Data 11/09/23 03:11 11/09/23 11:15 A&P Assessment and plan (1) Eclampsia: (2) headache: (3) JULIEN (acute kidney injury): (4) Pre-eclampsia in period: (5) Vision loss: (6) Anemia affecting in third trimester: Plan 1. Manage Hypertension with Labetolol and wean MgSO4 after 24 hrs. 2. Follow MgSo4 levels and decrease as needed d/t elevated Creat. Coding Level of Care Code Acute Code for [facility] Fwd Diagnoses Eclampsia O15.9 headache O90.89; R51.9 JULIEN (acute kidney injury) N17.9 Pre-eclampsia in period O14.95 Vision loss H54.7 Anemia affecting in third trimester O99.013
[2023-11-09 12:18] LABS: Magnesium 6.3 mg/dL (1.7-2.3)
--- NOTE | 2023-11-09 12:19 | PC.NURSE ---
Critical lab - magnesium of 6.3. NUrse alerted Dr burns and Dr smith. Dr smith ordered to continue with current treatment, 1gm of magnesium per hour, and to continue to check magnesium q4. REport next magnesium level to Dr smith.
--- NOTE | 2023-11-09 12:28 | PC.NURSE ---
NUrse asked life partner, Sundar Njrhiannon, about the patients plan for feeding her child as a breast pump or may be needed while in the hospital. Sundar states that they intend to formula feed.
--- NOTE | 2023-11-09 12:37 | PM.PN ---
Subjective Subjective: pt had seizure and was intubated Medications: Reviewed: Yes Vitals/I&O/Wt Last Vital Signs Temp 97.4 F L 11/09/23 07:30 Pulse 78 11/09/23 10:07 Resp 14 11/09/23 10:07 BP 118/79 11/09/23 09:15 Pulse Ox 98 11/09/23 10:07 O2 Del Method Mechanical Ventilation 11/09/23 10:07 FiO2 30 11/09/23 11:12 11/08/23 11/09/23 11/09/23 22:59 06:59 14:59 Intake Total 1360 / 2883.333 857.924 / 3741.257 632.649 / 632.649 Output Total 300 / 2125 2500 / 4625 1450 / 1450 Balance 1060 / 758.333 -1642.076 / -883.743 -817.351 / -817.351 Weight last 48 hrs Weight 97.976 kg Weight 98.43 kg Weight 97.976 kg Weight 99.79 kg Physical Exam Narrative: Patient is awake alert no distress HEENT S1-S2 regular rate and rhythm per report Lungs clear per report 1+ pedal edema Urinary Catheter Management: Landeros: Cath Placed During This Visit: yes Reason for Continuing Indwelling Catheter: Accurate Measurement of Urinary Output in Critically Ill Patients Urinary Catheter Date of Insertion: 11/07/23 Urinary Catheter Time of Insertion: 23:15 Data 11/09/23 03:11 11/09/23 11:15 A&P Assessment and plan (1) JULIEN (acute kidney injury): Acute kidney injury: Baseline creatinine was normal in April , now has JULIEN with a creatinine of 2.5 on presentation. Etiology likely NSAID induced JULIEN. Suspicion for sarcoid related renal disease including tubulointerstitial nephritis and nephrocalcinosis is low due to absence of hypercalcemia and no evidence of nephrocalcinosis on imaging. Other possible etiologies drug-induced AIN, -Noted urine electrolytes, negative urine eosinophils, M ACR less than 300 -Will also check serologies including complements hepatitis panel, JAYSON and ANCA -Check 2D echocardiogram -Avoid contrast studies, -Monitor renal function, continue IV fluids - stable Hepatomegaly and splenomegaly: Question etiology, hepatitis panel negative Metabolic acidosis:, On bicarb tabs New onset seizure - on keppra , intubated Patient evaluated using audiovisual cart. Time spent 40 minutes. Attestations Medical Necessity Statement*: per [facility] Coding Level of Care Code Acute Code for [facility] Fwd Diagnoses JULIEN (acute kidney injury) N17.9
[2023-11-09] MEDS: dexmedeTOMIDine 0.9 % NaCL 400 MCG/100 ML PREMIX IV (13:33)
[2023-11-09] MEDS: levETIRAcetam 1,000 MG/100 ML PREMIX 400 MG IV (15:07)
--- NOTE | 2023-11-09 15:20 | PC.NURSE ---
Patient extubated to room air at 1340. Extubation was uneventful. Restraints removed.
[2023-11-09 15:40] LABS: Magnesium 6.9 mg/dL (1.7-2.3)
--- NOTE | 2023-11-09 16:01 | PC.NURSE ---
magnesium level noted to be 6.9. Left patellar reflexes noted to be diminished compared to this morning. NUrse alerted Dr smith and received orders to decrease magnesium to 0.5g/hr (12.5ml/hr).
--- NOTE | 2023-11-09 16:55 | P.PN_ITS ---
Subjective 2 Subjective: - She was examined multiple times throug hout the morning and into the afternoon -Early in the morning she was seen on 50 % FiO2, not on any pressors, afebrile, normotensive, no episodes of hypertension, heart rates in the low 100s, sinus rhythm, she is on propofol and fentanyl for sedation, has received Keppra is receiving magnesium infusion, family members are at bedside ? Discussed with family members, including patient's events overnight, ? Spoke to Dr. García, about concerns for a eclampsia, will consult ? Dr. García rounded and saw the patient, monitor blood pressure, monitor magnesium levels, -Patient was reexamined, she is being we aned off propofol, fentanyl, on minimal sedation, she does follow commands and nods her head to questions, squeezes my fingers, wiggles her toes, pupils equal round react to light has robust urine output, remains normotensive, does have sinus tachycardia, ? Discussed with patient's family and patient about plans on possible extubation ? Reexamined currently patient is on minimal pressure support on the vent at 30% FiO2, follows commands a bit drowsy, will give her more time ? Reexamined in the afternoon, she is on 30% FiO2, spontaneous breathing trial, no episodes of tachypnea, no tachycardia no hypertensive episodes, she is following all commands but drowsy at times, will give her more time, continues to have robust urine output, magnesium levels came back at 6.3, no adjustments made as per OB service ? She was reexamined, not hypertensive, heart rates in the low 100s, 30% O2 no tachypnea, follows all commands, completely off sedation for a few hours, no recurrent seizure-like episodes off propofol, following all commands, ? I discussed with patient's family members at bedside, plans on extubation, discussed risk and benefits, risk of reintubation, rubidium mortality discussed, they voiced understanding, all questions answered, agreed to proceed ? Patient was extubated, to room air, was present during extubation, extubated to room air, O2 sats in the high 90s, she does have a weak cough but is able to cough up mucus, which is bloody tinged, she follows all commands She was reexamined, remains on room air, normotensive, no significant tachycardia, no hypertensive episodes no recurrent seizure-like episodes, O2 sats in the high 90s, she is drowsy but follows commands ? Reexamined, magnesium level 6.9, nursing staff have discussed with OB service, decreased dose of magnesium infusion, continue to check magnesium every 4 hours, she is alert awake can follow commands, -[facility] at [facility], clinically her mentation has improved, she is off the ventilator, will monitor for fluid overload pulm edema monitor for recurrent seizure-like episodes, will continue magnesium infusion, as per neurology's recommendation continue Keppra, monitor urine output monitor creatinine, will monitor in ICU overnight Vitals/I&O/Wt Last Vital Signs Temp 100.1 F H 11/09/23 16:30 Pulse 102 H 11/09/23 16:30 Resp 22 H 11/09/23 16:30 BP 142/94 11/09/23 16:30 Pulse Ox 93 11/09/23 16:30 O2 Del Method Room Air 11/09/23 16:30 FiO2 30 11/09/23 12:15 11/09/23 11/09/23 11/09/23 06:59 14:59 22:59 Intake Total 857.924 / 3741.257 633.180 / 633.180 362.083 / 995.263 Output Total 2500 / 4625 2175 / 2175 775 / 2950 Balance -1642.076 / -883.743 -1541.820 / -1541.820 -412.917 / -1954.737 Weight last 48 hrs Weight 97.976 kg Weight 98.43 kg Weight 97.976 kg Physical Exam 2 Const: COMMON NORMALS: no acute distress ORIENTATION/CONSCIOUSNESS: Yes awake, Yes oriented to person, Yes oriented to place and Yes oriented to time Eye: COMMON NORMALS: Equal, round and reactive pupils present PUPIL: Yes Equal, round and reactive pupils present Lymph: LYMPHATIC: no lymphadenopathy noted Resp: COMMON NORMALS: normal respiratory effort, No retractions, No use of accessory muscles and clear to auscultation bilaterally AUSCULTATION: clear to auscultation bilaterally Cardio: COMMON NORMALS: regular rate, regular rhythm, S1 normal heart sound present and S2 normal heart sound present RATE: regular rate RHYTHM: r egular rhythm HEART SOUNDS: S1 normal heart sound present and S2 normal heart sound present GI: COMMON NORMALS: Normal to inspection, nondistended, normoactive bowel sounds present and non-tender Extremity: NARRATIVE EXTREMITY EXAM: Nonpitting edema Neuro: SENSORIUM/ORIENTATION: Yes oriented to person, Yes oriented to place and Yes oriented to time Urinary Catheter Management: Landeros: Cath Placed During This Visit: yes Reason for Continuing Indwelling Catheter: Accurate Measurement of Urinary Output in Critically Ill Patients Urinary Catheter Date of Insertion: 11/07/23 Urinary Catheter Time of Insertion: 23:15 Data 11/09/23 03:11 11/09/23 11:15 Micro: Microbiology 11/09/23 05:05 Gram Stain - Final Sputum - Endotracheal Tube Aspirate A&P Assessment and plan (1) headache: (2) JULIEN (acute kidney injury): (3) Eclampsia: (4) Pre-eclampsia in period: (5) Focal onset clonic epileptic seizure: (6) UTI (urinary tract infection): Plan Seizure ? 2 episodes -Patient was intubated for airway protection ? Placed on propofol, fentanyl for sedation, received 1 loading dose of Keppra ? Weaned off sedation no recurrent seizure-like episodes, following all commands, extubated to room air ? Currently receiving magnesium infusion, last magnesium level 6.9, check mag levels every 4 hours ? Continue Keppra 1000 mg IV every 12 hours ? Possible MRI based on clinical progress ? Neurology on consult ?OBgyn on consult Acute hypoxic respiratory failure ? Intubated for protection of airway -Extubated to room air ? She did develop a fever at roughly 4, will broaden antibiotic coverage to Zosyn to cover for aspiration pneumonia Monitor for fluid overload monitor for pulmonary edema given that she is getting sodium bicarb, creatinine elevated at 2.2, consider Lasix based on clinical progress preeclampsia/eclampsia, in the period -During her visits, no issues with hypertension, she is not on blood pressure medications there was reported elevated blood pressures during her delivery -In the emergency room she did have a systolic blood pressure 180, -Yesterday no significant hypertensive episodes -She did have 1 episode of hypertension before her seizure episode as above, complain of blurry vision, headache -Does have edema, nonpitting anasarca, complaints of headache, back pain, creatinine up to 2.5, has proteinuria -Does have evidence of preeclampsia with severe features -No evidence of help syndrome -She is 5 days -Findings concerning for preeclampsia/eclampsia -obgyn service consulted -On magnesium infusion -Check magnesium levels every 4 hours -Monitor for anasarca, edema -monitor for magnesium toxicity, check reflexes, monitor mentation monitor respiratory status -Monitor blood pressure, treat if systolic greater than 160 diastolic greater than 110 as per ob protocol -Will monitor respiratory status closely, is on room air will monitor for pulmonary edema, he is receiving sodium bicarb urine output is robust, will consider Lasix therapy based on clinical progress -Start Zosyn for concerns for aspiration -Monitor for abdominal pain, monitor respiratory status JULIEN -Likely related to preeclampsia/eclampsia as above -However does report a history of sarcoidosis, -Patient was taking ibuprofen 800 mg twice daily -CT abdomen pelvis no obstructive uropathy -nephrology consulted Patient was taking ibuprofen 800 mg twice daily -On sodium bicarb Hepatosplenomegaly: Etiology unknown Check hepatitis panel, negative Etiology unknown Previous creatinine was normal in April Headache, back pain complaints, ? Anesthesia service consulted for consideration of epidural headache, recommended medical management ? MRI lumbar spine no acute findings - She was examined multiple times throughout the morning and into the afternoon -Early in the morning she was seen on 50% FiO2, not on any pressors, afebrile, normotensive, no episodes of hypertension, heart rates in the low 100s, sinus rhythm, she is on propofol and fentanyl for sedation, has received Keppra is receiving magnesium infusion, family members are at bedside ? Discussed with family members, including patient's events overnight, ? Spoke to Dr. García, about concerns for a eclampsia, will consult ? Dr. García rounded and saw the patient, monitor blood pressure, monitor magnesium levels, -Patient was reexamined, she is being weaned off propofol, fentanyl, on minimal sedation, she does follow commands and nods her head to questions, squeezes my fingers, wiggles her toes, pupils equal round react to light has robust urine output, remains normotensive, does have sinus tachycardia, ? Discussed with patient's family and patient about plans on possible extubation ? Reexamined currently patient is on minimal pressure support on the vent at 30% FiO2, follows commands a bit drowsy, will give her more time ? Reexamined in the afternoon, she is on 30% FiO2, spontaneous breathing trial, no episodes of tachypnea, no tachycardia no hypertensive episodes, she is following all commands but drowsy at times, will give her more time, continues to have robust urine output, magnesium levels came back at 6.3, no adjustments made as per OB service ? She was reexamined, not hypertensive, heart rates in the low 100s, 30% O2 no tachypnea, follows all commands, completely off sedation for a few hours, no recurrent seizure-like episodes off propofol, following all commands, ? I discussed with patient's family members at bedside, plans on extubation, discussed risk and benefits, risk of reintubation, rubidium mortality discussed, they voiced understanding, all questions answered, agreed to proceed ? Patient was extubated, to room air, was present during extubation, extubated to room air, O2 sats in the high 90s, she does have a weak cough but is able to cough up mucus, which is bloody tinged, she follows all commands She was reexamined, remains on room air, normotensive, no significant tachycardia, no hypertensive episodes no recurrent seizure-like episodes, O2 sats in the high 90s, she is drowsy but follows commands ? Reexamined, magnesium level 6.9, nursing staff have discussed with OB service, decreased dose of magnesium infusion, continue to check magnesium every 4 hours, she is alert awake can follow commands, -Discussed with family members at bedside patient's mother at bedside, clinically her mentation has improved, she is off the ventilator, will monitor for fluid overload pulm edema monitor for recurrent seizure-like episodes, will continue magnesium infusion, as per neurology's recommendation continue Keppra, monitor urine output monitor creatinine, will monitor in ICU overnight Attestations 2 Medical Necessity Statement*: Patient requires hospitalization for seizures, preeclampsia/eclampsia, acute respiratory failure Coding Level of Care Code Critical Care >/= 30 minutes Critical care time (in minutes): 55 The high probability of a clinically significant, sudden or life threatening deterioration, as referenced in this documentation, required my full and direct attention, intervention and personal management. The critical care time shown is in addition to time spent performing any reported separately billable procedures and includes the following: [x] Data and vital sign review and interpretation [x ] Patient assessment, examination and intervention [x] Medication orders and management [x] Patient/Family updates as able [x] Care Coordination and Documentation. Diagnoses headache O90.89; R51.9 JULIEN (acute kidney injury) N17.9 Eclampsia O15.9 Pre-eclampsia in period O14.95 Focal onset clonic epileptic seizure G40.109 UTI (urinary tract infection) N39.0
--- NOTE | 2023-11-09 18:56 | PM.OBGYCN ---
Providers/Reason for Consult Consulting Physican/Specialty*: Monique García DO Reason for Consult*: Eclampsia Attending Physician: Cordell Mortensen MD Primary Care Provider: Romeo Pena MD [facility] Consult HPI History of Present Illness Lela Miramontes is a 27 year old female s/p and Tubal Sterilization is recovering from Eclampsia, in which she had elevated BP with MAYES and multiple seizures. Pt also has acute renal injury with Creat of 2.5 shich seems to be improving now down to 2.2. pt was extubated earlier today and tolerated it well. Her MAYES has resolved but she still has visual blurriness. She denies pain other than a sore throat. Pt has good urinary output but has total body edema. Reviewed with pt PIH, Severe Preclampsia and Eclampsia and that the MAYES, Visual changes and edemal will take time to resolve but that we are hopeful that it all will. Discussed continuation of Magnesium at least for 24 hr, and that it makes you hot inside and fatigued. Pt verbalizes understanding. She moves on demand without hesitation... Medications/Allergies Home Medications Medication Instructions Recorded Confirmed Last Taken Type sertraline 50 mg tablet (Zoloft) 75 mg PO BEDTIME 06/25/22 11/07/23 11/06/23 20:00 History vitamin#30 30 mg iron-10 1 cap PO DAILY 03/28/23 11/07/23 11/07/23 08:00 History mg iron-folic acid 1 mg-omg3 capsule ferrous sulfate 325 mg (65 mg 325 mg PO BID Anemia 30 days #60 08/29/23 11/07/23 11/07/23 08:00 Rx iron) tablet tabs docusate sodium 100 mg capsule 100 mg PO BID #60 caps 11/03/23 11/07/23 11/07/23 08:00 Rx (Colace) hydrocodone 5 mg-acetaminophen 325 1 tab PO Q4H PRN pain #10 tabs 11/03/23 11/07/23 11/07/23 08:00 Rx mg tablet ibuprofen 800 mg tablet 800 mg PO TID PRN pain #60 tabs 11/03/23 11/07/23 11/07/23 08:00 Rx Allergies Allergy/AdvReac Type Severity Reaction Status Date / Time No Known Allergies Allergy Verified 11/07/23 17:01 Current Medications Generic Name Dose Route Start Last Admin Trade Name Cam PRN Reason Stop Dose Admin Ferrous Sulfate 325 mg 11/08/23 09:00 11/09/23 17:18 Ferrous Sulfate Ec 325 Mg Tablet PO Not Given BID SUKI Heparin Sodium (Porcine) 5,000 unit 11/07/23 22:08 11/09/23 10:13 Heparin 5,000 Unit/Ml Inj 1 Ml SUBCUT 5,000 unit Q12H SUKI Administration Magnesium Sulfate 2 gm in 50 mls @ 50 mls/hr 11/09/23 03:15 11/09/23 03:33 Magnesium Sulfate Premix IV 11/11/23 04:14 Infused ONCE SUKI Infusion Magnesium Sulfate 20 gm in 500 mls @ 12.5 mls/hr 11/09/23 04:15 11/09/23 16:00 Magnesium Sulfate Premix IV 12.5 mls/hr .Q24H SUKI Infusion Sodium Bicarbonate 150 meq/ 1,150 mls @ 50 mls/hr 11/09/23 09:45 11/09/23 08:08 Dextrose IV 50 mls/hr .Q23H SUKI Administration Dexmedetomidine/Sodium Chloride 400 mcg in 100 mls @ 0 mls/hr 11/09/23 13:30 11/09/23 13:46 Precedex IV 0 mcg/kg/hr .Q0M SUKI 0 mls/hr Titration Protocol Per Protocol Levetiracetam 1,000 mg in 100 mls @ 400 mls/hr 11/09/23 16:00 11/09/23 16:06 Keppra IV Infused Q12H SUKI Infusion Ssxgw-5-Synn Ethyl Esters 1,000 mg 11/08/23 09:00 11/09/23 10:02 [place]-3 Fatty Acids 1,000 Mg Capsule PO Not Given DAILY SUKI Senna/Docusate Sodium 1 tab 11/08/23 09:00 11/09/23 10:00 Sennosides-Docusate Tablet PO 1 tab DAILY SUKI Administration PFSH [facility] PFSH: Medical History No pertinent past medical history neghx: htn,dm,thyroid,dvt/pe PCP: Dr. Pena Anxiety Moderate major depression Sarcoidosis Surgical History No pertinent past surgical history Family History Mother Hypertension Denies family history of Colon cancer Ovarian cancer Prostate cancer Diabetes Breast cancer Cancer Uterine cancer Thyroid disease Stroke Social History Smoking and tobacco/nicotine status: never used tobacco/nicotine Vitals/I&O/Wt Last Vital Signs Temp 100.1 F H 11/09/23 16:30 Pulse 102 H 11/09/23 16:30 Resp 22 H 11/09/23 16:30 BP 142/94 11/09/23 16:30 Pulse Ox 93 11/09/23 16:30 O2 Del Method Room Air 11/09/23 16:30 FiO2 30 11/09/23 12:15 11/09/23 11/09/23 11/09/23 06:59 14:59 22:59 Intake Total 857.924 / 3741.257 633.180 / 633.180 362.083 / 995.263 Output Total 2500 / 4625 2175 / 2175 1125 / 3300 Balance -1642.076 / -883.743 -1541.820 / -1541.820 -762.917 / -2304.737 Weight last 48 hrs Weight 97.976 kg Weight 98.43 kg Weight 97.976 kg Physical Exam Urinary Catheter Management: Landeros: Cath Placed During This Visit: yes Reason for Continuing Indwelling Catheter: Accurate Measurement of Urinary Output in Critically Ill Patients Urinary Catheter Date of Insertion: 11/07/23 Urinary Catheter Time of Insertion: 23:15 Data 11/09/23 03:11 11/09/23 11:15 Micro: Microbiology 11/09/23 05:05 Gram Stain - Final Sputum - Endotracheal Tube Aspirate A&P Assessment and plan (1) Pre-eclampsia in period: (2) Eclampsia: Will DC Magnesium after 24hr of its start 5am. Labetolol per protocol if needed. (3) Vision loss: (4) JULIEN (acute kidney injury): (5) Anemia affecting in third trimester: Coding Level of Care Code Acute Code for [facility] Diagnoses Pre-eclampsia in period O14.95 Eclampsia O15.9 Vision loss H54.7 JULIEN (acute kidney injury) N17.9 Anemia affecting in third trimester O99.013
[2023-11-09 19:02] LABS: Basophils % 0.2 %; Hematocrit 38.5 % (36-47); Lymphocytes # 0.7 10^3/uL (0.8-4.8); Lymphocytes % 5.4 %; Mean Corpuscular HGB Conc 33.2 g/dL (30-55); Mean Corpuscular Volume 87.3 fl (85-98); Mean Platelet Volume 11.3 fL (7.4-10.4); Monocytes # 0.7 10^3/uL (0.2-0.9); Monocytes % 5.1 %; Neutrophils # 12.12 10^3/uL (1.8-7.7); Neutrophils % 88.9 %; Nucleated Red Blood Cells % 0 %; Platelet Count 174 10^3/cmm (157-399); Red Blood Count 4.41 10^6/uL (3.85-5.65); Red Cell Distribution Width 14.5 % (12.1-15.1); White Blood Count 13.65 10^3/uL (3.29-11.43)
[2023-11-09 19:29] LABS: NT Pro B Type Natriuretic Pept 1552 pg/mL (0-125); Procalcitonin 0.18 ng/mL (0-0.5)
--- NOTE | 2023-11-09 19:36 | PC.NURSE ---
Shift SUmmary: Patient extubated at 1340. Remains on Magnesium drip, reduced from 1g/hr to 0.5g/hr due to a magnesium level of 6.9 and decreased left patellar reflexes. Urine output was 3625mL for the shift. CUrrently patient is drowsy, but has slowly been becoming more alert since reduction in magnesium rate. Oriented to person and place. Occaisonally oriented to time and situation but often forgets, at one point forgot that she had given a week ago. Patient still reports blurry vision, this has been reported to Dr smith. [facility] labaetalol protocol has been ordered.
[2023-11-09 19:40] LABS: Alanine Aminotransferase 17 U/L (0-33); Albumin Level 3.3 g/dL (3.5-5.2); Alkaline Phosphatase 134 U/L (35-105); Anion Gap 20.9 (5-19); Aspartate Amino Transferase 15 U/L (0-32); Blood Urea Nitrogen 26 mg/dL (6-20); C Reactive Protein 72.5 mg/L (0.0-4.9); Calcium 8.6 mg/dL (8.5-10.5); Carbon Dioxide 22 mmol/L (22-29); Chloride 104 mmol/L (98-107); Creatinine Clr Calc Pharmacy 49.8188; Globulin 3.1 g/dL (1.3-4.6); Glomerular Filtration Rate 30.4 mL/min (90-130); Glucose 109 mg/dL (65-115); Osmolality Calculated 303 mOsm/kg (285-295); Sodium 144 mmol/L (136-145); Total Bilirubin 0.4 mg/dL (0.15-1.2); Total Protein 6.4 g/dL (6.6-8.7)
[2023-11-09] MEDS: piperacillin-tazobactam 3.375 GM in sodium chloride 0.9% (plus) 50 ML IV (19:55)
[2023-11-09 20:01] LABS: Magnesium 6.5 mg/dL (1.7-2.3); Potassium 2.9 mmol/L (3.5-5.1)
[2023-11-10] VITALS (53 sets, daily range): BP systolic 113–146; BP diastolic 57–97; PULSE 59–102; RESP 14–18; TEMP 36.7–37.4; O2SAT 92–99
[2023-11-10 00:10] LABS: Magnesium 6.6 mg/dL (1.7-2.3)
[2023-11-10] MEDS: piperacillin-tazobactam 3.375 GM in sodium chloride 0.9% (plus) 50 ML IV ×2 (01:59→09:57)
[2023-11-10 03:41] LABS: Basophils % 0.3 %; Eosinophils % 0.3 %; Hematocrit 38.3 % (36-47); Lymphocytes # 1.3 10^3/uL (0.8-4.8); Lymphocytes % 16.1 %; Mean Corpuscular HGB Conc 32.4 g/dL (30-55); Mean Corpuscular Hemoglobin 28.7 pg (27-33); Mean Corpuscular Volume 88.7 fl (85-98); Mean Platelet Volume 11.3 fL (7.4-10.4); Monocytes # 0.5 10^3/uL (0.2-0.9); Monocytes % 6.5 %; Neutrophils # 6.11 10^3/uL (1.8-7.7); Neutrophils % 76.4 %; Nucleated Red Blood Cells % 0 %; Platelet Count 183 10^3/cmm (157-399); Red Blood Count 4.32 10^6/uL (3.85-5.65); Red Cell Distribution Width 14.6 % (12.1-15.1); White Blood Count 7.99 10^3/uL (3.29-11.43)
[2023-11-10 04:00] LABS: Alanine Aminotransferase 15 U/L (0-33); Albumin Level 3.2 g/dL (3.5-5.2); Alkaline Phosphatase 130 U/L (35-105); Anion Gap 16.9 (5-19); Aspartate Amino Transferase 11 U/L (0-32); Blood Urea Nitrogen 26 mg/dL (6-20); Calcium 8.4 mg/dL (8.5-10.5); Carbon Dioxide 25 mmol/L (22-29); Chloride 107 mmol/L (98-107); Creatinine Clr Calc Pharmacy 47.4465; Globulin 3.1 g/dL (1.3-4.6); Glomerular Filtration Rate 28.7 mL/min (90-130); Glucose 103 mg/dL (65-115); Osmolality Calculated 307 mOsm/kg (285-295); Sodium 146 mmol/L (136-145); Total Bilirubin 0.4 mg/dL (0.15-1.2); Total Protein 6.3 g/dL (6.6-8.7)
[2023-11-10 04:11] LABS: NT Pro B Type Natriuretic Pept 1212 pg/mL (0-125); Procalcitonin 0.29 ng/mL (0-0.5)
[2023-11-10 04:22] LABS: C Reactive Protein 104.3 mg/L (0.0-4.9)
[2023-11-10] MEDS: levETIRAcetam 1,000 MG/100 ML PREMIX 400 MG IV (04:25)
[2023-11-10 04:29] LABS: Magnesium 6.3 mg/dL (1.7-2.3); Potassium 2.9 mmol/L (3.5-5.1)
--- NOTE | 2023-11-10 04:34 | PC.NURSE ---
Dr. García in to see pt. Verbal order received to advance diet starting with ice chips and give regular diet when appetite returns. Called Dr. García with critical mag levels for 1900 and 0. No changes ordered with 0, and ordered to decrease magnesium by half (0.25 grams per hour) for 0 lab draw then discontinue mag at 0500. 0300 mag not reported due to expected result and scheduled discontinuation of mag. Spoke with Dr. Bryant regarding K+ of 2.9, ordered to give 20mEq k rider IV.
[2023-11-10] MEDS: potassium chloride premix 100 ML 50 MEQ IV (05:00)
--- NOTE | 2023-11-10 07:00 | XRR_ITS ---
PROCEDURE INFORMATION: Exam: XR Chest Exam date and time: 11/10/2023 9:02 AM Age: 27 years old Clinical indication: Shortness of breath; Additional info: SOB TECHNIQUE: Imaging protocol: Radiologic exam of the chest. Views: 1 view. COMPARISON: CR (CHEST, ) 11/09/2023 9:23 AM FINDINGS: Tubes, catheters and devices: Central venous catheter seen on the right with its tip overlying the SVC. Lungs: Unremarkable. No consolidation. Pleural spaces: Unremarkable. No pleural effusion. No pneumothorax. Heart/Mediastinum: Unremarkable. No cardiomegaly. Bones/joints: Unremarkable. XR/XR chest 1V portable [id number] IMPRESSION: 1. No acute cardiopulmonary findings.
[2023-11-10] MEDS: ferrous sulfate EC 325 mg Tablet PO ×2 (08:32→18:03)
[2023-11-10] MEDS: omega-3 fatty acids 1,000 mg Capsule 1000 MG PO (08:32)
--- NOTE | 2023-11-10 09:06 | P.CONIM_ITS ---
Providers/Reason for Consult 2 Consulting Physican/Specialty*: Monique García DO Reason for Consult*: Eclampsia Attending Physician: Cordell Mortensen MD Primary CENTRAL PROCESSING TECHNICIAN: Dr. Larry Primary Care Provider: Romeo Pena MD CENTRAL PROCESSING TECHNICIAN Consult HPI History of Present Illness Lela Miramontes is a 27 year old female G3, P3 s/p with tubal sterilization readmitted to the hospital on 11/07/2023 with complaints of low back pain and severe headaches. Incidental findings of increased creatinine of 2.5 was noted. Patient's back pain was treated as well as management of her renal failure. Early a.m. of 728 patient experienced multiple seizures and was transferred to the ICU for management. She was intubated for less than 24 hours and extubated successfully. Patient's eclamptic seizures was managed with Keppra, and magnesium sulfate. Her blood pressure was managed with labetalol and hydralazine IV as needed. Patient experienced loss of vision which has resolved but she continues to have episodes of blurry vision. She denies headaches, shortness of breath or chest pain and she has no loss of sensation in the face body or extremities. She moves all extremities appropriately on demand. And she has had no further seizure activity. VSS?afebrile General appearance has improved her facial edema is resolving, as well as her total body edema has improved. Medications/Allergies Home Medications Medication Instructions Recorded Confirmed Last Taken Type sertraline 50 mg tablet (Zoloft) 75 mg PO BEDTIME 06/25/22 11/07/23 11/06/23 20:00 History vitamin#30 30 mg iron-10 1 cap PO DAILY 03/28/23 11/07/23 11/07/23 08:00 History mg iron-folic acid 1 mg-omg3 capsule ferrous sulfate 325 mg (65 mg 325 mg PO BID Anemia 30 days #60 08/29/23 11/07/23 11/07/23 08:00 Rx iron) tablet tabs docusate sodium 100 mg capsule 100 mg PO BID #60 caps 11/03/23 11/07/23 11/07/23 08:00 Rx (Colace) hydrocodone 5 mg-acetaminophen 325 1 tab PO Q4H PRN pain #10 tabs 11/03/23 11/07/23 11/07/23 08:00 Rx mg tablet ibuprofen 800 mg tablet 800 mg PO TID PRN pain #60 tabs 11/03/23 11/07/23 11/07/23 08:00 Rx Allergies Allergy/AdvReac Type Severity Reaction Status Date / Time No Known Allergies Allergy Verified 11/07/23 17:01 Current Medications Generic Name Dose Route Start Last Admin Trade Name Cam PRN Reason Stop Dose Admin Chlorhexidine Gluconate 1 applic 11/10/23 01:00 11/10/23 01:47 Chlorhexidine Gluconate 4% Btl 118 Ml TOPICAL Not Given 0100 SUKI Ferrous Sulfate 325 mg 11/08/23 09:00 11/10/23 08:32 Ferrous Sulfate Ec 325 Mg Tablet PO 325 mg BID SUKI Administration Heparin Sodium (Porcine) 5,000 unit 11/07/23 22:08 11/09/23 21:46 Heparin 5,000 Unit/Ml Inj 1 Ml SUBCUT 5,000 unit Q12H SUKI Administration Magnesium Sulfate 2 gm in 50 mls @ 50 mls/hr 11/09/23 03:15 11/09/23 03:33 Magnesium Sulfate Premix IV 11/11/23 04:14 Infused ONCE SUKI Infusion Dexmedetomidine/Sodium Chloride 400 mcg in 100 mls @ 0 mls/hr 11/09/23 13:30 11/09/23 13:46 Precedex IV 0 mcg/kg/hr .Q0M SUKI 0 mls/hr Titration Protocol Per Protocol Levetiracetam 1,000 mg in 100 mls @ 400 mls/hr 11/09/23 16:00 11/10/23 04:44 Keppra IV Infused Q12H SUKI Infusion Piperacillin Sod/Tazobactam 50 mls @ 12.5 mls/hr 11/09/23 18:00 11/10/23 08:32 Sod 3.375 gm/ Sodium Chloride IV Infused Q8H SUKI Infusion Protocol Potassium Chloride 100 mls @ 50 mls/hr 11/10/23 04:30 11/10/23 07:41 K-Augusto Premix IV Infused ONCE SUKI Infusion Ghfkr-5-Ythz Ethyl Esters 1,000 mg 11/08/23 09:00 11/10/23 08:32 [place]-3 Fatty Acids 1,000 Mg Capsule PO 1,000 mg DAILY SUKI Administration Senna/Docusate Sodium 1 tab 11/08/23 09:00 07/29/24 08:32 Sennosides-Docusate Tablet PO Not Given DAILY SUKI PFSH CENTRAL PROCESSING TECHNICIAN 2 PFSH: Medical History No pertinent past medical history neghx: htn,dm,thyroid,dvt/pe PCP: Dr. Pena Anxiety Moderate major depression Sarcoidosis Surgical History No pertinent past surgical history Family History Mother Hypertension Denies family history of Colon cancer Ovarian cancer Prostate cancer Diabetes Breast cancer Cancer Uterine cancer Thyroid disease Stroke Social History Smoking and tobacco/nicotine status: never used tobacco/nicotine Vitals/I&O/Wt Last Vital Signs Temp 98.4 F 11/10/23 06:00 Pulse 68 11/10/23 08:00 Resp 16 11/10/23 08:00 BP 132/89 11/10/23 06:00 Pulse Ox 94 11/10/23 08:00 O2 Del Method Room Air 11/10/23 08:00 FiO2 30 11/09/23 12:15 11/09/23 11/10/23 11/10/23 22:59 06:59 14:59 Intake Total 512.083 / 1145.263 733.940 / 1879.203 150 / 150 Output Total 2150 / 4325 650 / 4975 125 / 125 Balance -1637.917 / -3179.737 83.940 / -3095.797 25 / 25 Weight last 48 hrs Weight 99.246 kg Weight 97.976 kg Physical Exam 2 Urinary Catheter Management: Landeros: Cath Placed During This Visit: yes Reason for Continuing Indwelling Catheter: Accurate Measurement of Urinary Output in Critically Ill Patients Urinary Catheter Date of Insertion: 11/07/23 Urinary Catheter Time of Insertion: 23:15 Data 11/10/23 03:19 11/10/23 03:19 Micro: Microbiology 11/09/23 18:56 Blood Culture - Preliminary Blood SPECIMEN COLLECTED 11/09/23 18:46 Blood Culture - Preliminary Blood SPECIMEN COLLECTED 11/09/23 05:05 Gram Stain - Final Sputum - Endotracheal Tube Aspirate A&P Assessment and plan (1) Pre-eclampsia in period: (2) Eclampsia: (3) Vision loss: (4) JULIEN (acute kidney injury): (5) headache: (6) Anemia affecting in third trimester: (7) Moderate major depression: (8) Anxiety: (9) Hypokalemia: Treated with IV supplement Plan 1. Begin p.o. labetalol 100 mg twice daily for hypertension 2. Resume p.o. Zoloft 50 mg daily at bedtime for major depression and anxiety. 3. DC Landeros catheter 4. Up to bedside with nursing assistance and ambulate in room. 5. Start potassium p.o.10meq BID. Coding Level of Care Code Acute Code for [facility] Fwd Diagnoses Pre-eclampsia in period O14.95 Eclampsia O15.9 Vision loss H54.7 JULIEN (acute kidney injury) N17.9 headache O90.89; R51.9 Anemia affecting in third trimester O99.013 Moderate major depression F32.1 Anxiety F41.9 Hypokalemia E87.6
[2023-11-10 09:10] LABS: Complement C3 116 mg/dL (90-180)
[2023-11-10 09:15] LABS: Magnesium Level (OB Only) 5.6 mg/dL (5.0-7.5)
[2023-11-10] MEDS: sodium chloride 0.9% 1,000 ML 100 ML IV (09:56)
[2023-11-10] MEDS: heparin 5,000 unit/mL INJ 1 mL 5000 UNIT SUBCUT (10:37)
--- NOTE | 2023-11-10 13:10 | PC.NURSE ---
Report was given to CASEY Paul and patient was transported via wheelchair to OB @ 1230 in stable condition.
--- NOTE | 2023-11-10 14:11 | P.PN_ITS ---
Subjective 2 Subjective: Patient was seen this morning, she is alert oriented x 3, following all commands, continues to complain of brain fog, intermittent blurry vision, no nausea, vomiting, headache, does report back pain Vitals/I&O/Wt Last Vital Signs Temp 98.4 F 11/10/23 06:00 Pulse 96 11/10/23 11:04 Resp 18 11/10/23 11:04 BP 132/85 11/10/23 10:15 Pulse Ox 99 11/10/23 11:04 O2 Del Method Room Air 11/10/23 13:00 FiO2 30 11/09/23 12:15 11/09/23 11/10/23 11/10/23 22:59 06:59 14:59 Intake Total 512.083 / 1145.263 733.940 / 0730.235 7655 / 1540 Output Total 2150 / 4325 650 / 4975 225 / 225 Balance -1637.917 / -3179.737 83.940 / -3095.797 1315 / 1315 Weight last 48 hrs Weight 99.246 kg Weight 97.976 kg Physical Exam 2 Const: COMMON NORMALS: no acute distress and patient oriented x3 Eye: COMMON NORMALS: Equal, round and reactive pupils present and EOMs intact bilaterally PUPIL: Yes Equal, round and reactive pupils present Resp: COMMON NORMALS: normal respiratory effort, No retractions, No use of accessory muscles and clear to auscultation bilaterally AUSCULTATION: clear to auscultation bilaterally Cardio: COMMON NORMALS: regular rate, regular rhythm, S1 normal heart sound present and S2 normal heart sound present RATE: regular rate RHYTHM: r egular rhythm HEART SOUNDS: S1 normal heart sound present and S2 normal heart sound present GI: COMMON NORMALS: Normal to inspection, nondistended, normoactive bowel sounds present and non-tender Extremity: COMMON NORMALS: no pedal edema Neuro: COMMON NORMALS: patient oriented x3, CN's II-XII intact bilaterally, moves all extremities, no focal motor deficits and no sensory deficits noted Psych: COMMON NORMALS: mental status grossly normal Urinary Catheter Management: Landeros: Cath Placed During This Visit: yes, but has since been removed by the nurse Reason for Continuing Indwelling Catheter: Decision to DC Catheter Urinary Catheter Date of Insertion: 11/07/23 Urinary Catheter Time of Insertion: 23:15 Date Urinary Catheter Removed: 11/10/23 Time Urinary Catheter Discontinued: 09:00 Data 11/10/23 03:19 11/10/23 03:19 Micro: Microbiology 11/09/23 05:05 Gram Stain - Final Sputum - Endotracheal Tube Aspirate Sputum Culture - Preliminary 11/09/23 18:56 Blood Culture - Preliminary Blood SPECIMEN COLLECTED 11/09/23 18:46 Blood Culture - Preliminary Blood SPECIMEN COLLECTED A&P Assessment and plan (1) headache: (2) JULIEN (acute kidney injury): (3) Eclampsia: (4) Pre-eclampsia in period: (5) Focal onset clonic epileptic seizure: (6) UTI (urinary tract infection): (7) Aspiration pneumonia: (8) Fever: Plan Seizure ? 2 episodes -Patient was intubated for airway protection, now extubated ? Placed on propofol, fentanyl for sedation, received 1 loading dose of Keppra ? Weaned off sedation no recurrent seizure-like episodes, following all commands, extubated to room air ? Currently receiving magnesium infusion, last magnesium level 6.9, check mag levels every 4 hours, magnesium discontinued ? Continue Keppra 1000 mg IV every 12 hours, transition to p.o. Keppra ? Possible MRI based on clinical progress ? Neurology on consult ?OBgyn on consult Acute hypoxic respiratory failure ? Intubated for protection of airway -Extubated to room air ? She did develop a fever at roughly 4, will broaden antibiotic coverage to Zosyn to cover for aspiration pneumonia, remains afebrile, cultures so far negative, dosing leukocytosis transition to Augmentin Monitor for fluid overload monitor for pulmonary edema given that she is getting sodium bicarb, creatinine elevated at 2.2, is receiving fluids for JULIEN, consider Lasix based on clinical progress preeclampsia/eclampsia, in the period -During her visits, no issues with hypertension, she is not on blood pressure medications there was reported elevated blood pressures during her delivery -In the emergency room she did have a systolic blood pressure 180, -Yesterday no significant hypertensive episodes -She did have 1 episode of hypertension before her seizure episode as above, complain of blurry vision, headache -Does have edema, nonpitting anasarca, complaints of headache, back pain, creatinine up to 2.5, has proteinuria -Does have evidence of preeclampsia with severe features -No evidence of help syndrome -She is 5 days -Findings concerning for preeclampsia/eclampsia -obgyn service consulted -On magnesium infusion, completed -Check magnesium levels every 4 hours, last magnesium level 5.9 -Monitor for anasarca, edema -monitor for magnesium toxicity, check reflexes, monitor mentation monitor respiratory status -Monitor blood pressure, treat if systolic greater than 160 diastolic greater than 110 as per ob protocol -Will monitor respiratory status closely, is on room air will monitor for pulmonary edema, he is receiving sodium bicarb urine output is robust, will consider Lasix therapy based on clinical progress -Start Zosyn for concerns for aspiration, transition to Augmentin -Monitor for abdominal pain, monitor respiratory status JULIEN -Likely related to preeclampsia/eclampsia as above -However does report a history of sarcoidosis, -Patient was taking ibuprofen 800 mg twice daily -CT abdomen pelvis no obstructive uropathy -nephrology consulted Patient was taking ibuprofen 800 mg twice daily -On normal saline at 100 cc an hour Hepatosplenomegaly: Etiology unknown Check hepatitis panel, negative Previous creatinine was normal in April Headache, back pain complaints, ? Anesthesia service consulted for consideration of epidural headache, recommended medical management ? MRI lumbar spine no acute findings ? Hydrocodone as needed for back pain -Plan for today up out of bed, PT OT, speech therapy eval, advance diet as tolerated, of magnesium drip, transition to p.o. Keppra, p.o. antibiotics, DC Landeros catheter, monitor blood pressures, monitor mentation, Attestations 2 Medical Necessity Statement*: Patient requires hospitalization for seizures, preeclampsia/eclampsia, JULIEN Diagnoses headache O90.89; R51.9 JULIEN (acute kidney injury) N17.9 Eclampsia O15.9 Pre-eclampsia in period O14.95 Focal onset clonic epileptic seizure G40.109 UTI (urinary tract infection) N39.0 Aspiration pneumonia J69.0 Fever R50.9
--- NOTE | 2023-11-10 14:52 | P.PN_ITS ---
Subjective 2 Subjective: extubated Medications: Reviewed: Yes Vitals/I&O/Wt Last Vital Signs Temp 98.4 F 11/10/23 06:00 Pulse 96 11/10/23 11:04 Resp 18 11/10/23 11:04 BP 132/85 11/10/23 10:15 Pulse Ox 99 11/10/23 11:04 O2 Del Method Room Air 11/10/23 13:00 FiO2 30 11/09/23 12:15 11/09/23 11/10/23 11/10/23 22:59 06:59 14:59 Intake Total 512.083 / 1145.263 733.940 / 6896.062 6994 / 1540 Output Total 2150 / 4325 650 / 4975 225 / 225 Balance -1637.917 / -3179.737 83.940 / -3095.797 1315 / 1315 Weight last 48 hrs Weight 99.246 kg Weight 97.976 kg Physical Exam 2 Narrative: Patient is awake alert no distress HEENT S1-S2 regular rate and rhythm per report Lungs clear per report 1+ pedal edema Urinary Catheter Management: Landeros: Cath Placed During This Visit: yes, but has since been removed by the nurse Reason for Continuing Indwelling Catheter: Decision to DC Catheter Urinary Catheter Date of Insertion: 11/07/23 Urinary Catheter Time of Insertion: 23:15 Date Urinary Catheter Removed: 11/10/23 Time Urinary Catheter Discontinued: 09:00 Data 11/10/23 03:19 11/10/23 03:19 Micro: Microbiology 11/09/23 05:05 Gram Stain - Final Sputum - Endotracheal Tube Aspirate Sputum Culture - Preliminary 11/09/23 18:56 Blood Culture - Preliminary Blood SPECIMEN COLLECTED 11/09/23 18:46 Blood Culture - Preliminary Blood SPECIMEN COLLECTED A&P Assessment and plan (1) JULIEN (acute kidney injury): Acute kidney injury: Baseline creatinine was normal in April , now has JULIEN with a creatinine of 2.5 on presentation. Etiology likely NSAID induced JULIEN. Suspicion for sarcoid related renal disease including tubulointerstitial nephritis and nephrocalcinosis is low due to absence of hypercalcemia and no evidence of nephrocalcinosis on imaging. Other possible etiologies drug-induced AIN, -Noted urine electrolytes, negative urine eosinophils, M ACR less than 300 -Will also check serologies including complements hepatitis panel, JAYSON and ANCA -Cr improving -Avoid contrast studies, -Monitor renal function, continue IV fluids Hepatomegaly and splenomegaly: Question etiology, hepatitis panel negative Metabolic acidosis:, On bicarb tabs New onset seizure - on keppra , intubated hypokalemia : give kcl 40 meq x 1 Patient evaluated using audiovisual cart. Time spent 40 minutes. Attestations 2 Medical Necessity Statement*: per medicine Coding Level of Care Code Acute Code for [facility] Fwd Diagnoses JULIEN (acute kidney injury) N17.9
[2023-11-10 17:24] LABS: Anion Gap 17.4 (5-19); Blood Urea Nitrogen 25 mg/dL (6-20); Calcium 8.4 mg/dL (8.5-10.5); Carbon Dioxide 24 mmol/L (22-29); Chloride 103 mmol/L (98-107); Creatinine Clr Calc Pharmacy 52.8039; Glomerular Filtration Rate 32.2 mL/min (90-130); Glucose 92 mg/dL (65-115); Osmolality Calculated 296 mOsm/kg (285-295); Potassium 3.4 mmol/L (3.5-5.1); Sodium 141 mmol/L (136-145)
[2023-11-10] MEDS: amoxicillin-clav 875-125 mg Tablet 1 TAB PO (18:02)
[2023-11-10] MEDS: labetalol 200 mg Tablet 100 MG PO (18:03)
[2023-11-10] MEDS: potassium chloride ER 10 mEq Tablet PO (18:04)
[2023-11-10] MEDS: levETIRAcetam 1,000 mg/10 mL UDC 1000 MG PO (18:05)
--- NOTE | 2023-11-10 18:45 | P.CONIM_ITS ---
Providers/Reason for Consult 2 Consulting Physican/Specialty*: Monique García DO Reason for Consult*: eclampsia Attending Physician: Cordell Mortensen MD Primary PACKAGE WINDER: Dr. Larry Primary Care Provider: Romeo Pena MD PACKAGE WINDER Consult HPI History of Present Illness Lela Miramontes is a 27 year old female G3, P3 admitted 11/07/2023 with low back pain and headache. During the management of her back pain patient's blood pressures was elevated. Patient experienced multiple seizures on med/surge floor and was transferred to ICU where she was intubated and treated with IV Keppra and magnesium sulfate. Patient was extubated successfully and is doing well. On admission her creatinine was elevated at 2.5 and it has decreased to 1.9. Her chest x-ray, renal scan and head CT have all been unremarkable. Patient was transferred out of ICU this a.m. and now is on the penny. She denies having a headache but continues to have episodes of blurred vision. She states she can ambulate but feels a little unsteady. She has had no further seizure activity. Patient is tolerating a regular diet and has voided. I contacted Dr. Mortensen and Dr. Armenta for patient review and plan of care. I discussed care for eclampsia which involves the patient's acute renal injury, blurred vision and brain fog. Continuation of treatment for hypertension with labetalol 100 mg twice daily and Augmentin 875 mg twice daily for possible aspiration pneumonitis. Patient's hypokalemia has resolved with a potassium of 3.4. Will continue p.o. potassium until potassium level is rechecked in the early a.m. Also will continue Keppra x 6 weeks through patient's course. Medications/Allergies Home Medications Medication Instructions Recorded Confirmed Last Taken Type sertraline 50 mg tablet (Zoloft) 75 mg PO BEDTIME 06/25/22 11/07/23 11/06/23 20:00 History vitamin#30 30 mg iron-10 1 cap PO DAILY 03/28/23 11/07/23 11/07/23 08:00 History mg iron-folic acid 1 mg-omg3 capsule ferrous sulfate 325 mg (65 mg 325 mg PO BID Anemia 30 days #60 08/29/23 11/07/23 11/07/23 08:00 Rx iron) tablet tabs docusate sodium 100 mg capsule 100 mg PO BID #60 caps 11/03/23 11/07/23 11/07/23 08:00 Rx (Colace) hydrocodone 5 mg-acetaminophen 325 1 tab PO Q4H PRN pain #10 tabs 11/03/23 11/07/23 11/07/23 08:00 Rx mg tablet ibuprofen 800 mg tablet 800 mg PO TID PRN pain #60 tabs 11/03/23 11/07/23 11/07/23 08:00 Rx Allergies Allergy/AdvReac Type Severity Reaction Status Date / Time No Known Allergies Allergy Verified 11/07/23 17:01 Current Medications Generic Name Dose Route Start Last Admin Trade Name Freq PRN Reason Stop Dose Admin Amoxicillin/Clavulanate Potassium 1 tab 11/10/23 18:00 11/10/23 18:02 Amoxicillin-Clav 875-125 Mg Tablet PO 1 tab BID SUKI Administration Protocol Chlorhexidine Gluconate 1 applic 11/10/23 01:00 11/10/23 01:47 Chlorhexidine Gluconate 4% Btl 118 Ml TOPICAL Not Given 0100 SUKI Ferrous Sulfate 325 mg 11/08/23 09:00 11/10/23 18:03 Ferrous Sulfate Ec 325 Mg Tablet PO 325 mg BID SUKI Administration Heparin Sodium (Porcine) 5,000 unit 11/07/23 22:08 11/10/23 10:37 Heparin 5,000 Unit/Ml Inj 1 Ml SUBCUT 5,000 unit Q12H SUKI Administration Sodium Chloride 1,000 mls @ 100 mls/hr 11/10/23 09:00 11/10/23 09:56 Sodium Chloride 0.9% IV 100 mls/hr .Q10H SUKI Administration Labetalol HCl 100 mg 11/10/23 18:00 11/10/23 18:03 Labetalol 200 Mg Tablet PO 100 mg BID SUKI Administration Levetiracetam 1,000 mg 11/10/23 18:00 11/10/23 18:05 Levetiracetam 1,000 Mg/10 Ml Udc PO 1,000 mg BID SUKI Administration Dek[place]-3-Rejs Ethyl Esters 1,000 mg 11/08/23 09:00 11/10/23 08:32 [place]-3 Fatty Acids 1,000 Mg Capsule PO 1,000 mg DAILY SUKI Administration Potassium Chloride 10 meq 11/10/23 18:00 11/10/23 18:04 Potassium Chloride Er 10 Meq Tablet PO 10 meq BID SUKI Administration Senna/Docusate Sodium 1 tab 11/08/23 09:00 11/10/23 08:32 Sennosides-Docusate Tablet PO Not Given DAILY SUKI PFSH PACKAGE WINDER 2 PFSH: Medical History No pertinent past medical history neghx: htn,dm,thyroid,dvt/pe PCP: Dr. Pena Anxiety Moderate major depression Sarcoidosis Surgical History No pertinent past surgical history Family History Mother Hypertension Denies family history of Colon cancer Ovarian cancer Prostate cancer Diabetes Breast cancer Cancer Uterine cancer Thyroid disease Stroke Social History Smoking and tobacco/nicotine status: never used tobacco/nicotine Vitals/I&O/Wt Last Vital Signs Temp 98.3 F 11/10/23 17:17 Pulse 68 11/10/23 17:17 Resp 18 11/10/23 11:04 BP 125/89 11/10/23 17:07 Pulse Ox 96 11/10/23 17:17 O2 Del Method Room Air 11/10/23 17:07 FiO2 30 11/09/23 12:15 11/10/23 11/10/23 11/10/23 06:59 14:59 22:59 Intake Total 733.940 / 8630.650 2262 / 1540 Output Total 650 / 4975 225 / 225 500 / 725 Balance 83.940 / -3095.797 1315 / 1315 -500 / 815 Weight last 48 hrs Weight 99.246 kg Weight 97.976 kg Physical Exam 2 Urinary Catheter Management: Landeros: Cath Placed During This Visit: yes, but has since been removed by the nurse Reason for Continuing Indwelling Catheter: Decision to DC Catheter Urinary Catheter Date of Insertion: 11/07/23 Urinary Catheter Time of Insertion: 23:15 Date Urinary Catheter Removed: 11/10/23 Time Urinary Catheter Discontinued: 09:00 Data 11/10/23 03:19 11/10/23 16:52 Micro: Microbiology 11/09/23 05:05 Gram Stain - Final Sputum - Endotracheal Tube Aspirate Sputum Culture - Preliminary 11/09/23 18:56 Blood Culture - Preliminary Blood SPECIMEN COLLECTED 11/09/23 18:46 Blood Culture - Preliminary Blood SPECIMEN COLLECTED A&P Assessment and plan (1) Pre-eclampsia in period: (2) Eclampsia: (3) Vision loss: (4) JULIEN (acute kidney injury): (5) headache: (6) Anemia affecting in third trimester: (7) Hypokalemia: Plan 1. Hep-Lock IV to limit fluids. 2. Continue Augmentin 875 mg BID 3. CBC with CHEM profile in the a.m. as scheduled. 4. Continue Keppra 1000 mg BID x 6 weeks, until patient follows up with Neurologist. (Dr. Armenta) 5. Continue Zoloft 50 mg at at bedtime. 6. Continue labetalol 100 mg BID 7. Encourage ambulation every 2 hours with nursing assistance. Consult Attestations 2 Medical Necessity Statement: Continue patient's admission for medical management of eclampsia and acute renal injury. Coding Level of Care Code Acute Code for [facility] Fwd Diagnoses Pre-eclampsia in period O14.95 Eclampsia O15.9 Vision loss H54.7 JULIEN (acute kidney injury) N17.9 headache O90.89; R51.9 Anemia affecting in third trimester O99.013 Hypokalemia E87.6
[2023-11-10] MEDS: sertraline 50 mg Tablet PO (20:12)
[2023-11-11] VITALS (14 sets, daily range): BP systolic 117–148; BP diastolic 71–96; PULSE 52–77; RESP 14–18; TEMP 36.6–36.8; O2SAT 95–97
[2023-11-11 04:43] LABS: Basophils % 0.4 %; Eosinophils # 0.2 10^3/uL (0.0-0.8); Eosinophils % 2.5 %; Hematocrit 35.1 % (36-47); Lymphocytes # 1.6 10^3/uL (0.8-4.8); Lymphocytes % 22.5 %; Mean Corpuscular HGB Conc 32.5 g/dL (30-55); Mean Corpuscular Hemoglobin 28.9 pg (27-33); Mean Corpuscular Volume 88.9 fl (85-98); Mean Platelet Volume 11.3 fL (7.4-10.4); Monocytes # 0.5 10^3/uL (0.2-0.9); Monocytes % 7.3 %; Neutrophils # 4.76 10^3/uL (1.8-7.7); Neutrophils % 66.9 %; Nucleated Red Blood Cells % 0 %; Platelet Count 178 10^3/cmm (157-399); Red Blood Count 3.95 10^6/uL (3.85-5.65); Red Cell Distribution Width 14.6 % (12.1-15.1); White Blood Count 7.12 10^3/uL (3.29-11.43)
[2023-11-11 05:07] LABS: Alanine Aminotransferase 13 U/L (0-33); Albumin Level 3.3 g/dL (3.5-5.2); Alkaline Phosphatase 123 U/L (35-105); Anion Gap 15.4 (5-19); Aspartate Amino Transferase 8 U/L (0-32); Blood Urea Nitrogen 26 mg/dL (6-20); Calcium 8.1 mg/dL (8.5-10.5); Carbon Dioxide 25 mmol/L (22-29); Chloride 108 mmol/L (98-107); Creatinine Clr Calc Pharmacy 55.2527; Globulin 3.1 g/dL (1.3-4.6); Glucose 95 mg/dL (65-115); Osmolality Calculated 305 mOsm/kg (285-295); Potassium 3.4 mmol/L (3.5-5.1); Sodium 145 mmol/L (136-145); Total Bilirubin 0.4 mg/dL (0.15-1.2); Total Protein 6.4 g/dL (6.6-8.7)
[2023-11-11 05:18] LABS: NT Pro B Type Natriuretic Pept 178 pg/mL (0-125); Procalcitonin 0.13 ng/mL (0-0.5)
[2023-11-11] MEDS: potassium chloride ER 10 mEq Tablet PO ×2 (09:54→18:05)
[2023-11-11] MEDS: amoxicillin-clav 875-125 mg Tablet 1 TAB PO ×2 (09:54→18:04)
[2023-11-11] MEDS: sennosides-docusate Tablet 1 TAB PO (09:54)
[2023-11-11] MEDS: levETIRAcetam 1,000 mg/10 mL UDC 1000 MG PO ×2 (09:54→18:04)
[2023-11-11] MEDS: labetalol 200 mg Tablet 100 MG PO ×3 (09:55→19:45)
[2023-11-11] MEDS: sertraline 50 mg Tablet PO (09:55)
[2023-11-11] MEDS: omega-3 fatty acids 1,000 mg Capsule 1000 MG PO (09:55)
[2023-11-11] MEDS: ferrous sulfate EC 325 mg Tablet PO ×2 (09:56→18:04)
--- NOTE | 2023-11-11 10:22 | P.CONIM_ITS ---
Providers/Reason for Consult 2 Consulting Physican/Specialty*: Monique García Reason for Consult*: eclampsia Attending Physician: Cordell Mortensen MD Primary FLEET ADMINISTRATOR: Dr. Larry Primary Care Provider: Romeo Pena MD FLEET ADMINISTRATOR Consult HPI History of Present Illness Lela Miramontes is a 28 year old female G3, P3 s/p . Patient was readmitted to the hospital11/07/23 after 11/02/2023 with complaints of back pain and headaches and elevated blood pressure. Patient experienced eclampsia on 11/09/2023 and was transferred to the ICU where she was intubated started on Keppra and magnesium sulfate for her seizures. Patient's initial lab indicated acute renal injury with a creatinine of 2.5, which has decreased to 1.8. Patient's head CT, renal scan and chest x-rays have all been unremarkable. In less than 24 hours patient was extubated and has had no further seizures. She initially had visual changes, which advanced to complete vision loss before her seizures. Her vision has improved greatly to only a few episodes of blurriness. And her headaches have resolved. Patient's blood pressure is being managed with labetalol 100 mg twice daily. She remains on Keppra 1000 mg twice daily. Patient is voiding well with urine output greater than 30 mL/h. She is increasing her ambulation in her room and hallway and experiencing less dizziness. She is able to perform her own personal hygiene management without complaints of headache, shortness of breath, chest pain or dizziness. She is tolerating regular diet and increase fluids. Patient is presently sitting in bedside in chair, states she feels much better. Medications/Allergies Home Medications Medication Instructions Recorded Confirmed Last Taken Type sertraline 50 mg tablet (Zoloft) 75 mg PO BEDTIME 06/25/22 11/07/23 11/06/23 20:00 History vitamin#30 30 mg iron-10 1 cap PO DAILY 03/28/23 11/07/23 11/07/23 08:00 History mg iron-folic acid 1 mg-omg3 capsule ferrous sulfate 325 mg (65 mg 325 mg PO BID Anemia 30 days #60 08/29/23 11/07/23 11/07/23 08:00 Rx iron) tablet tabs docusate sodium 100 mg capsule 100 mg PO BID #60 caps 11/03/23 11/07/2324 08:00 Rx (Colace) hydrocodone 5 mg-acetaminophen 325 1 tab PO Q4H PRN pain #10 tabs 11/03/23 11/07/23 11/07/23 08:00 Rx mg tablet ibuprofen 800 mg tablet 800 mg PO TID PRN pain #60 tabs 11/03/23 11/07/23 11/07/23 08:00 Rx Allergies Allergy/AdvReac Type Severity Reaction Status Date / Time No Known Allergies Allergy Verified 11/07/23 17:01 Current Medications Generic Name Dose Route Start Last Admin Trade Name Davidq PRN Reason Stop Dose Admin Amoxicillin/Clavulanate Potassium 1 tab 11/10/23 18:00 11/11/23 09:54 Amoxicillin-Clav 875-125 Mg Tablet PO 1 tab BID SUKI Administration Protocol Chlorhexidine Gluconate 1 applic 11/10/23 01:00 11/11/23 07:00 Chlorhexidine Gluconate 4% Btl 118 Ml TOPICAL Not Given [address] [facility] Ferrous Sulfate 325 mg 11/08/23 09:00 11/11/23 09:56 Ferrous Sulfate Ec 325 Mg Tablet PO 325 mg BID SUKI Administration Heparin Sodium (Porcine) 5,000 unit 11/07/23 22:08 11/11/23 06:59 Heparin 5,000 Unit/Ml Inj 1 Ml SUBCUT Not Given Q12H SUKI Sodium Chloride 1,000 mls @ 100 mls/hr 11/10/23 09:00 11/11/23 07:00 Sodium Chloride 0.9% IV Not Given .Q10H SUKI Labetalol HCl 100 mg 11/10/23 18:00 11/11/23 09:55 Labetalol 200 Mg Tablet PO 100 mg BID SUKI Administration Levetiracetam 1,000 mg 11/10/23 18:00 11/11/23 09:54 Levetiracetam 1,000 Mg/10 Ml Udc PO 1,000 mg BID SUKI Administration [id number] Ethyl Esters 1,000 mg 11/08/23 09:00 11/11/23 09:55 [place]-3 Fatty Acids 1,000 Mg Capsule PO 1,000 mg DAILY SUKI Administration Potassium Chloride 10 meq 11/10/23 18:00 11/11/23 09:54 Potassium Chloride Er 10 Meq Tablet PO 10 meq BID SUKI Administration Senna/Docusate Sodium 1 tab 11/08/23 09:00 11/11/23 09:54 Sennosides-Docusate Tablet PO 1 tab DAILY SUKI Administration Sertraline HCl 50 mg 11/10/23 21:00 11/11/23 09:55 Sertraline 50 Mg Tablet PO 50 mg DAILY SUKI Administration PFSH FLEET ADMINISTRATOR 2 PFSH: Medical History No pertinent past medical history neghx: htn,dm,thyroid,dvt/pe PCP: Dr. Pena Anxiety Moderate major depression Sarcoidosis Surgical History No pertinent past surgical history Family History Mother Hypertension Denies family history of Colon cancer Ovarian cancer Prostate cancer Diabetes Breast cancer Cancer Uterine cancer Thyroid disease Stroke Social History Smoking and tobacco/nicotine status: never used tobacco/nicotine Vitals/I&O/Wt Last Vital Signs Temp 98.1 F 11/11/23 09:15 Pulse 72 11/11/23 09:15 Resp 14 11/11/23 09:15 BP 117/86 11/11/23 09:15 Pulse Ox 96 11/11/23 09:15 O2 Del Method Room Air 11/11/23 09:15 FiO2 30 11/09/23 12:15 11/10/23 11/11/23 11/11/23 22:59 06:59 14:59 Output Total 1000 / 1225 600 / 600 Balance -1000 / 315 -600 / -600 Weight last 48 hrs Weight 99.246 kg Physical Exam 2 Narrative: Patient is awake and alert no acute distress. Verbalizes good understanding and response to questions. Const: COMMON NORMALS: no acute distress, patient oriented x3, no limitations, healthy appearing, alert and well nourished HENMT: OTHER: Facial edema has decreased and is much improved. Eye: COMMON NORMALS: EOMs intact bilaterally Resp: COMMON NORMALS: normal respiratory effort, No use of accessory muscles and clear to auscultation bilaterally AUSCULTATION: clear to auscultation bilaterally Cardio: COMMON NORMALS: regular rate, regular rhythm, S1 normal heart sound present, S2 normal heart sound present and No murmurs present (Cardio) RATE: regular rate RHYTHM: regular rhythm HEART SOUNDS: S1 normal heart sound present and S2 normal heart sound present Neuro: COMMON NORMALS: patient oriented x3, CN's II-XII intact bilaterally, moves all extremities, no focal motor deficits, no sensory deficits noted, deep tendon reflexes 2+ bilaterally and gait normal SENSORIUM/ORIENTATION: Yes alert Psych: COMMON NORMALS: mental status grossly normal, Normal thought process present, cooperative, normal affect and speech normal SPEECH: Yes normal speech THOUGHT PROCESS: Normal thought process present Urinary Catheter Management: Landeros: Cath Placed During This Visit: yes, but has since been removed by the nurse Reason for Continuing Indwelling Catheter: Decision to DC Catheter Urinary Catheter Date of Insertion: 11/07/23 Urinary Catheter Time of Insertion: 23:15 Date Urinary Catheter Removed: 11/10/23 Time Urinary Catheter Discontinued: 09:00 Data 11/11/23 04:20 11/11/23 04:20 Micro: Microbiology 11/09/23 05:05 Gram Stain - Final Sputum - Endotracheal Tube Aspirate Sputum Culture - Final 11/09/23 18:56 Blood Culture - Preliminary Blood NEGATIVE TO DATE 11/09/23 18:46 Blood Culture - Preliminary Blood NEGATIVE TO DATE A&P Assessment and plan (1) Pre-eclampsia in period: 1. Blood pressures have improved with labetalol 100 mg twice daily. (2) Eclampsia: Seizure activity has resolved with Keppra and magnesium sulfate therapy. Plan on continuing Keppra 1000 mg twice daily x 6 weeks. (3) Vision loss: Much improved (4) JULIEN (acute kidney injury): Creatinine improving, initially 2.5 now decreased to 1.8. (5) headache: Resolved (6) Anemia affecting in third trimester: Asymptomatic (7) Hypokalemia: Improved with IV and p.o. supplementation. (8) Moderate major depression: Resume Zoloft 50 mg at at bedtime (9) Anxiety: Plan 1. If patient continues to improve, and has no further seizure activity will probably discharge to home tomorrow with scheduled 1 week follow-up with Dr. Larry for blood pressure evaluation. Will also need to follow-up with Dr. Armenta in 6 weeks to evaluate for discontinuation of her Keppra. Coding Level of Care Code Acute Code for Chg Fwd Diagnoses Pre-eclampsia in period O14.95 Eclampsia O15.9 Vision loss H54.7 JULIEN (acute kidney injury) N17.9 headache O90.89; R51.9 Anemia affecting in third trimester O99.013 Hypokalemia E87.6 Moderate major depression F32.1 Anxiety F41.9
--- NOTE | 2023-11-11 13:30 | P.PN_ITS ---
Subjective 2 Subjective: Patient was seen this morning, denies any fevers, chills, no cough, alert oriented x 3, following all commands no blurry vision no nausea, no vomiting, no fevers, no chills, no lightheadedness, dizziness, her swelling is improving, Vitals/I&O/Wt Last Vital Signs Temp 98.2 F 11/11/23 11:08 Pulse 77 11/11/23 11:08 Resp 16 11/11/23 11:08 BP 127/85 11/11/23 11:08 Pulse Ox 96 11/11/23 11:08 O2 Del Method Room Air 11/11/23 11:08 FiO2 30 11/09/23 12:15 11/10/23 11/11/23 11/11/23 22:59 06:59 14:59 Output Total 1000 / 1225 600 / 600 Balance -1000 / 315 -600 / -600 Weight last 48 hrs Weight 99.246 kg Physical Exam 2 Const: COMMON NORMALS: no acute distress and patient oriented x3 Resp: COMMON NORMALS: normal respiratory effort, No retractions, No use of accessory muscles and clear to auscultation bilaterally AUSCULTATION: clear to auscultation bilaterally Cardio: COMMON NORMALS: regular rate, regular rhythm, S1 normal heart sound present and S2 normal heart sound present RATE: regular rate RHYTHM: r egular rhythm HEART SOUNDS: S1 normal heart sound present and S2 normal heart sound present GI: COMMON NORMALS: Normal to inspection, nondistended, normoactive bowel sounds present, Soft to palpation and non-tender PALPATION: Yes Soft to palpation Extremity: COMMON NORMALS: no pedal edema Neuro: COMMON NORMALS: patient oriented x3, CN's II-XII intact bilaterally, moves all extremities and no focal motor deficits Psych: COMMON NORMALS: mental status grossly normal Urinary Catheter Management: Landeros: Cath Placed During This Visit: yes, but has since been removed by the nurse Reason for Continuing Indwelling Catheter: Decision to DC Catheter Urinary Catheter Date of Insertion: 11/07/23 Urinary Catheter Time of Insertion: 23:15 Date Urinary Catheter Removed: 11/10/23 Time Urinary Catheter Discontinued: 09:00 Data 11/11/23 04:20 11/11/23 04:20 Micro: Microbiology 11/09/23 05:05 Gram Stain - Final Sputum - Endotracheal Tube Aspirate Sputum Culture - Final 11/09/23 18:56 Blood Culture - Preliminary Blood NEGATIVE TO DATE 11/09/23 18:46 Blood Culture - Preliminary Blood NEGATIVE TO DATE A&P Assessment and plan (1) headache: (2) JULIEN (acute kidney injury): (3) Eclampsia: (4) Pre-eclampsia in period: (5) Focal onset clonic epileptic seizure: (6) UTI (urinary tract infection): (7) Aspiration pneumonia: (8) Fever: Plan Seizure, likely related to preeclampsia/eclampsia ? 2 episodes -Patient was intubated for airway protection, now extubated ? Placed on propofol, fentanyl for sedation, received 1 loading dose of Keppra ? Weaned off sedation no recurrent seizure-like episodes, following all commands, extubated to room air ? Currently receiving magnesium infusion, last magnesium level 6.9, check mag levels every 4 hours, magnesium discontinued ? Continue Keppra 1000 mg IV every 12 hours, transition to p.o. Keppra ? Possible MRI based on clinical progress ? Neurology on consult ?OBgyn on consult Acute hypoxic respiratory failure ? Intubated for protection of airway -Extubated to room air ? She did develop a fever at roughly 4, will broaden antibiotic coverage to Zosyn to cover for aspiration pneumonia, remains afebrile, cultures so far negative, dosing leukocytosis transition to Augmentin Monitor for fluid overload monitor for pulmonary edema given that she is getting sodium bicarb, creatinine elevated at 2.2, is receiving fluids for JULIEN, consider Lasix based on clinical progress preeclampsia/eclampsia, in the period -During her visits, no issues with hypertension, she is not on blood pressure medications there was reported elevated blood pressures during her delivery -In the emergency room she did have a systolic blood pressure 180, -Yesterday no significant hypertensive episodes -She did have 1 episode of hypertension before her seizure episode as above, complain of blurry vision, headache -Does have edema, nonpitting anasarca, complaints of headache, back pain, creatinine up to 2.5, has proteinuria -Does have evidence of preeclampsia with severe features -No evidence of help syndrome -She is -Findings concerning for preeclampsia/eclampsia -obgyn service consulted -On magnesium infusion, completed - last magnesium level 5.9 -Monitor for anasarca, edema -monitor for magnesium toxicity, check reflexes, monitor mentation monitor respiratory status -Monitor blood pressure, treat if systolic greater than 160 diastolic greater than 110 as per ob protocol -Will monitor respiratory status closely, is on room air will monitor for pulmonary edema, he is receiving sodium bicarb urine output is robust, will consider Lasix therapy based on clinical progress - Augmentin -Monitor for abdominal pain, monitor respiratory status JULIEN -Likely related to preeclampsia/eclampsia as above -However does report a history of sarcoidosis, -Patient was taking ibuprofen 800 mg twice daily -CT abdomen pelvis no obstructive uropathy -nephrology consulted Patient was taking ibuprofen 800 mg twice daily -On normal saline at 100 cc an hour Hepatosplenomegaly: Etiology unknown Check hepatitis panel, negative Previous creatinine was normal in April Headache, back pain complaints, ? Anesthesia service consulted for consideration of epidural headache, recommended medical management ? MRI lumbar spine no acute findings ? Hydrocodone as needed for back pain -Plan for today PT OT, up out of bed, advance diet as tolerated, monitor for recurrent seizures monitor blood pressure, spoke to Dr. García Attestations 2 Medical Necessity Statement*: Patient requires hospitalization for preeclampsia/eclampsia Diagnoses headache O90.89; R51.9 JULIEN (acute kidney injury) N17.9 Eclampsia O15.9 Pre-eclampsia in period O14.95 Focal onset clonic epileptic seizure G40.109 UTI (urinary tract infection) N39.0 Aspiration pneumonia J69.0 Fever R50.9
[2023-11-11 13:44] LABS: ANA SCREEN, IFA NEGATIVE (NEGATIVE)
--- NOTE | 2023-11-11 19:37 | P.CONIM_ITS ---
Providers/Reason for Consult 2 Consulting Physican/Specialty*: Monique García DO Reason for Consult*: Eclampsia Attending Physician: Cordell Mortensen MD Primary ARCHITECTURAL MODEL MAKER: Dr. Larry Primary Care Provider: Romeo Pena MD ARCHITECTURAL MODEL MAKER Consult HPI History of Present Illness Lela Miramontes is a 28 year old female G3, P3 status post spontaneous vaginal delivery, recovering after eclamptic seizure on 11/09/2023. Patient has had no further seizure activity. Her headaches and visual changes have resolved. She is ambulating, tolerating regular diet and voiding adequately. Her blood pressures have trended up today, presently 135/96. Will increase her labetalol to 200 mg twice daily and continue to monitor. Medications/Allergies Home Medications Medication Instructions Recorded Confirmed Last Taken Type sertraline 50 mg tablet (Zoloft) 75 mg PO BEDTIME 06/25/22 11/07/23 11/06/23 20:00 History vitamin#30 30 mg iron-10 1 cap PO DAILY 03/28/23 11/07/23 11/07/23 08:00 History mg iron-folic acid 1 mg-omg3 capsule ferrous sulfate 325 mg (65 mg 325 mg PO BID Anemia 30 days #60 08/29/23 11/07/23 11/07/23 08:00 Rx iron) tablet tabs docusate sodium 100 mg capsule 100 mg PO BID #60 caps 11/03/23 11/07/23 11/07/23 08:00 Rx (Colace) hydrocodone 5 mg-acetaminophen 325 1 tab PO Q4H PRN pain #10 tabs 11/03/23 11/07/23 11/07/23 08:00 Rx mg tablet ibuprofen 800 mg tablet 800 mg PO TID PRN pain #60 tabs 11/03/23 11/07/23 11/07/23 08:00 Rx Allergies Allergy/AdvReac Type Severity Reaction Status Date / Time No Known Allergies Allergy Verified 11/07/23 17:01 Current Medications Generic Name Dose Route Start Last Admin Trade Name Freq PRN Reason Stop Dose Admin Amoxicillin/Clavulanate Potassium 1 tab 11/10/23 18:00 11/11/23 18:04 Amoxicillin-Clav 875-125 Mg Tablet PO 1 tab BID SUKI Administration Protocol Chlorhexidine Gluconate 1 applic 11/10/23 01:00 11/11/23 07:00 Chlorhexidine Gluconate 4% Btl 118 Ml TOPICAL Not Given 0100 SUKI Ferrous Sulfate 325 mg 11/08/23 09:00 11/11/23 18:04 Ferrous Sulfate Ec 325 Mg Tablet PO 325 mg BID SUKI Administration Heparin Sodium (Porcine) 5,000 unit 11/07/23 22:08 11/11/23 06:59 Heparin 5,000 Unit/Ml Inj 1 Ml SUBCUT Not Given Q12H SUKI Sodium Chloride 1,000 mls @ 100 mls/hr 11/10/23 09:00 11/11/23 07:00 Sodium Chloride 0.9% IV Not Given .Q10H SUKI Labetalol HCl 100 mg 11/10/23 18:00 11/11/23 18:05 Labetalol 200 Mg Tablet PO 100 mg BID SUKI Administration Levetiracetam 1,000 mg 11/10/23 18:00 11/11/23 18:04 Levetiracetam 1,000 Mg/10 Ml Udc PO 1,000 mg BID SUKI Administration [id number]-5-Axxa Ethyl Esters 1,000 mg 11/08/23 09:00 11/11/23 09:55 [place]-3 Fatty Acids 1,000 Mg Capsule PO 1,000 mg DAILY SUKI Administration Potassium Chloride 10 meq 11/10/23 18:00 11/11/23 18:05 Potassium Chloride Er 10 Meq Tablet PO 10 meq BID SUKI Administration Senna/Docusate Sodium 1 tab 11/08/23 09:00 11/11/23 09:54 Sennosides-Docusate Tablet PO 1 tab DAILY SUKI Administration Sertraline HCl 50 mg 11/10/23 21:00 11/11/23 09:55 Sertraline 50 Mg Tablet PO 50 mg DAILY SUKI Administration PFSH ARCHITECTURAL MODEL MAKER 2 PFSH: Medical History No pertinent past medical history neghx: htn,dm,thyroid,dvt/pe PCP: Dr. Pena Anxiety Moderate major depression Sarcoidosis Surgical History No pertinent past surgical history Family History Mother Hypertension Denies family history of Colon cancer Ovarian cancer Prostate cancer Diabetes Breast cancer Cancer Uterine cancer Thyroid disease Stroke Social History Smoking and tobacco/nicotine status: never used tobacco/nicotine Vitals/I&O/Wt Last Vital Signs Temp 97.9 F 11/11/23 19:32 Pulse 64 11/11/23 19:32 Resp 16 11/11/23 19:32 BP 135/96 11/11/23 19:32 Pulse Ox 97 11/11/23 19:32 O2 Del Method Room Air 11/11/23 19:32 FiO2 30 11/09/23 12:15 11/11/23 11/11/23 11/11/23 06:59 14:59 22:59 Output Total 750 / 750 500 / 1250 Balance -750 / -750 -500 / -1250 Weight last 48 hrs Weight 99.246 kg Physical Exam 2 Urinary Catheter Management: Landeros: Cath Placed During This Visit: yes, but has since been removed by the nurse Reason for Continuing Indwelling Catheter: Decision to DC Catheter Urinary Catheter Date of Insertion: 11/07/23 Urinary Catheter Time of Insertion: 23:15 Date Urinary Catheter Removed: 11/10/23 Time Urinary Catheter Discontinued: 09:00 Data 11/11/23 04:20 11/11/23 04:20 Micro: Microbiology 11/09/23 05:05 Gram Stain - Final Sputum - Endotracheal Tube Aspirate Sputum Culture - Final 11/09/23 18:56 Blood Culture - Preliminary Blood NEGATIVE TO DATE 11/09/23 18:46 Blood Culture - Preliminary Blood NEGATIVE TO DATE A&P Assessment and plan (1) Pre-eclampsia in period: Increase labetalol from 100 to 200 mg twice daily. (2) Eclampsia: (3) JULIEN (acute kidney injury): Improving, (4) Anemia affecting in third trimester: (5) Moderate major depression: (6) Anxiety: Consult Attestations 2 Medical Necessity Statement: Management of eclampsia. Coding Level of Care Code Acute Code for [facility] Fwd Diagnoses Pre-eclampsia in period O14.95 Eclampsia O15.9 JULIEN (acute kidney injury) N17.9 Anemia affecting in third trimester O99.013 Moderate major depression F32.1 Anxiety F41.9
[2023-11-12] VITALS (11 sets, daily range): BP systolic 114–144; BP diastolic 80–89; PULSE 56–74; RESP 16–17; TEMP 36.3–36.8; O2SAT 95–98
[2023-11-12 08:10] LABS: THYROID PEROXIDASE ANTIBODIES <1 IU/mL (<9)
[2023-11-12 08:43] LABS: Basophils % 0.5 %; Eosinophils # 0.2 10^3/uL (0.0-0.8); Eosinophils % 2.7 %; Hematocrit 38.8 % (36-47); Lymphocytes # 1.8 10^3/uL (0.8-4.8); Lymphocytes % 28.1 %; Mean Corpuscular HGB Conc 30.7 g/dL (30-55); Mean Corpuscular Hemoglobin 28.5 pg (27-33); Mean Corpuscular Volume 92.8 fl (85-98); Mean Platelet Volume 11.8 fL (7.4-10.4); Monocytes # 0.5 10^3/uL (0.2-0.9); Monocytes % 7.7 %; Neutrophils # 3.77 10^3/uL (1.8-7.7); Neutrophils % 60.5 %; Nucleated Red Blood Cells % 0 %; Platelet Count 185 10^3/cmm (157-399); Red Blood Count 4.18 10^6/uL (3.85-5.65); Red Cell Distribution Width 14.5 % (12.1-15.1); White Blood Count 6.23 10^3/uL (3.29-11.43)
[2023-11-12 09:19] LABS: Alanine Aminotransferase 10 U/L (0-33); Albumin Level 3.5 g/dL (3.5-5.2); Alkaline Phosphatase 118 U/L (35-105); Blood Urea Nitrogen 20 mg/dL (6-20); Calcium 8.9 mg/dL (8.5-10.5); Carbon Dioxide 20 mmol/L (22-29); Chloride 111 mmol/L (98-107); Glomerular Filtration Rate 49.5 mL/min (90-130); Glucose 107 mg/dL (65-115); Osmolality Calculated 307 mOsm/kg (285-295); Sodium 147 mmol/L (136-145); Total Bilirubin 0.3 mg/dL (0.15-1.2); Total Protein 6.5 g/dL (6.6-8.7)
[2023-11-12 09:26] LABS: Creatinine Clr Calc Pharmacy 76.5038
[2023-11-12 09:30] LABS: Aspartate Amino Transferase 10 U/L (0-32)
[2023-11-12] MEDS: labetalol 200 mg Tablet PO (09:30)
[2023-11-12] MEDS: sertraline 50 mg Tablet PO (09:30)
[2023-11-12] MEDS: ferrous sulfate EC 325 mg Tablet PO (09:30)
[2023-11-12] MEDS: potassium chloride ER 10 mEq Tablet PO (09:30)
[2023-11-12] MEDS: sennosides-docusate Tablet 1 TAB PO (09:30)
[2023-11-12] MEDS: omega-3 fatty acids 1,000 mg Capsule 1000 MG PO (09:31)
[2023-11-12] MEDS: levETIRAcetam 1,000 mg/10 mL UDC 1000 MG PO (09:31)
[2023-11-12] MEDS: amoxicillin-clav 875-125 mg Tablet 1 TAB PO (09:31)
[2023-11-12 09:48] LABS: CENTROMERE B ANTIBODY <1.0 NEG AI (<1.0 NEG); JO-1 ANTIBODY <1.0 NEG AI (<1.0 NEG); RNP ANTIBODY <1.0 NEG AI (<1.0 NEG); SCL-70 ANTIBODY <1.0 NEG AI (<1.0 NEG); SJOGREN'S ANTIBODY (SS-A) <1.0 NEG AI (<1.0 NEG); SM ANTIBODY <1.0 NEG AI (<1.0 NEG); SS-B <1.0 NEG AI (<1.0 NEG)
--- NOTE | 2023-11-12 10:24 | PM.MISC ---
Miscellaneous Note Purpose of Documentation: Neurology Note: I talked with Dr. García and Dr. Mortensen. Dr. García indicates that this patient meets diagnostic criteria for Eclampsia. In that case, there is no indication for ongoing anticonvulsant therapy or any further neurologic workup. Thanks!
--- NOTE | 2023-11-12 10:46 | PM.OBGYCN ---
Providers/Reason for Consult Consulting Physican/Specialty*: Monique García DO Reason for Consult*: Eclampsia Attending Physician: Cordell Mortnesen MD Primary AEROSPACE PROJECT ENGINEER: Dr. Larry Primary Care Provider: Romeo Pena MD AEROSPACE PROJECT ENGINEER Consult HPI History of Present Illness Lela Miramontes is a 28 year old female G3, P3 s/p , admitted and treated for low back pain and headache. On hospital day 2 patient had eclamptic seizure x 2 and was treated with Keppra and magnesium sulfate. Patient was intubated. And successfully extubated within 24 hours. Her blood pressures have been managed with labetalol initially 100 mg twice daily and increase to 200 mg twice daily. Her headache has resolved as well as visual changes improved, after experiencing total visual loss. Patient's creatinine initially 2.5 has decreased to 1.2. Patient is voiding with adequate output, ambulating and tolerating a regular diet. Patient continues to have low back pain but I consider this to be mainly muscular in etiology. With patient's improvement I agree with her discharge to home today with continuation of her Keppra 1000 mg twice daily, labetalol 200 mg twice daily. I encouraged patient to follow-up with Dr. Larry in 1 week. Thank you for this consultation and allowing me to assist in this patient's management. Medications/Allergies Home Medications Medication Instructions Recorded Confirmed Last Taken Type sertraline 50 mg tablet (Zoloft) 75 mg PO BEDTIME 06/25/22 11/07/23 11/06/23 20:00 History vitamin#30 30 mg iron-10 1 cap PO DAILY 03/28/23 11/07/23 11/07/23 08:00 History mg iron-folic acid 1 mg-omg3 capsule ferrous sulfate 325 mg (65 mg 325 mg PO BID Anemia 30 days #60 08/29/23 11/07/23 11/07/23 08:00 Rx iron) tablet tabs docusate sodium 100 mg capsule 100 mg PO BID #60 caps 11/03/23 11/07/23 11/07/23 08:00 Rx (Colace) hydrocodone 5 mg-acetaminophen 325 1 tab PO Q4H PRN pain #10 tabs 11/03/23 11/07/23 11/07/23 08:00 Rx mg tablet ibuprofen 800 mg tablet 800 mg PO TID PRN pain #60 tabs 11/03/23 11/07/23 11/07/23 08:00 Rx Allergies Allergy/AdvReac Type Severity Reaction Status Date / Time No Known Allergies Allergy Verified 11/07/23 17:01 Current Medications Generic Name Dose Route Start Last Admin Trade Name Cam PRN Reason Stop Dose Admin Chlorhexidine Gluconate 1 applic 11/10/23 01:00 11/11/23 07:00 Chlorhexidine Gluconate 4% Btl 118 Ml TOPICAL Not Given 0100 SUKI Ferrous Sulfate 325 mg 11/08/23 09:00 11/12/23 09:30 Ferrous Sulfate Ec 325 Mg Tablet PO 325 mg BID SUKI Administration Heparin Sodium (Porcine) 5,000 unit 11/07/23 22:08 11/11/23 06:59 Heparin 5,000 Unit/Ml Inj 1 Ml SUBCUT Not Given Q12H SUKI Sodium Chloride 1,000 mls @ 100 mls/hr 11/10/23 09:00 11/11/23 07:00 Sodium Chloride 0.9% IV Not Given .Q10H SUKI Labetalol HCl 200 mg 11/12/23 09:00 11/12/23 09:30 Labetalol 200 Mg Tablet PO 200 mg BID SUKI Administration Levetiracetam 1,000 mg 11/10/23 18:00 11/12/23 09:31 Levetiracetam 1,000 Mg/10 Ml Udc PO 1,000 mg BID SUKI Administration Laeac-0-Iaqy Ethyl Esters 1,000 mg 11/08/23 09:00 11/12/23 09:31 [place]-3 Fatty Acids 1,000 Mg Capsule PO 1,000 mg DAILY SUKI Administration Potassium Chloride 10 meq 11/10/23 18:00 11/12/23 09:30 Potassium Chloride Er 10 Meq Tablet PO 10 meq BID SUKI Administration Senna/Docusate Sodium 1 tab 11/08/23 09:00 11/12/23 09:30 Sennosides-Docusate Tablet PO 1 tab DAILY SUKI Administration Sertraline HCl 50 mg 11/10/23 21:00 11/12/23 09:30 Sertraline 50 Mg Tablet PO 50 mg DAILY SUKI Administration PFSH AEROSPACE PROJECT ENGINEER PFSH: Medical History No pertinent past medical history neghx: htn,dm,thyroid,dvt/pe PCP: Dr. Pena Anxiety Moderate major depression Sarcoidosis Surgical History No pertinent past surgical history Family History Mother Hypertension Denies family history of Colon cancer Ovarian cancer Prostate cancer Diabetes Breast cancer Cancer Uterine cancer Thyroid disease Stroke Social History Smoking and tobacco/nicotine status: never used tobacco/nicotine Vitals/I&O/Wt Last Vital Signs Temp 97.4 F L 11/12/23 08:00 Pulse 60 11/12/23 08:00 Resp 16 11/12/23 08:00 BP 114/80 11/12/23 08:00 Pulse Ox 98 11/12/23 08:00 O2 Del Method Room Air 11/12/23 08:00 FiO2 30 11/09/23 12:15 11/11/23 11/12/23 11/12/23 22:59 06:59 14:59 Intake Total 500 / 500 300 / 800 600 / 600 Output Total 900 / 1650 800 / 2450 550 / 550 Balance -400 / -1150 -500 / -1650 50 / 50 Physical Exam Urinary Catheter Management: Landerso: Cath Placed During This Visit: yes, but has since been removed by the nurse Reason for Continuing Indwelling Catheter: Decision to DC Catheter Urinary Catheter Date of Insertion: 11/07/23 Urinary Catheter Time of Insertion: 23:15 Date Urinary Catheter Removed: 11/10/23 Time Urinary Catheter Discontinued: 09:00 Data 11/12/23 08:33 11/12/23 08:33 Micro: Microbiology 11/09/23 05:05 Gram Stain - Final Sputum - Endotracheal Tube Aspirate Sputum Culture - Final A&P Assessment and plan (1) Pre-eclampsia in period: (2) Eclampsia: (3) Vision loss: (4) JULIEN (acute kidney injury): (5) headache: (6) Anemia affecting in third trimester: (7) Moderate major depression: (8) Anxiety: (9) Hypokalemia: Plan Agree with discharge to home patient to follow-up with Dr. Larry in 1 week.. Consult Attestations Medical Necessity Statement: Hospitalization was required to manage patient's preeclampsia which progressed to eclampsia , treatment included intubation and transfer to ICU. Her seizures were treated with Keppra and magnesium sulfate. Her hypertension was treated with labetalol per OB protocol. Coding Level of Care Code Acute Code for Chg Fwd Diagnoses Pre-eclampsia in period O14.95 Eclampsia O15.9 Vision loss H54.7 JULIEN (acute kidney injury) N17.9 headache O90.89; R51.9 Anemia affecting in third trimester O99.013 Moderate major depression F32.1 Anxiety F41.9 Hypokalemia E87.6
--- NOTE | 2023-11-12 10:50 | P.DS_ITS ---
Discharge Providers Date of Admission: 11/07/23 20:14 Date of Discharge: November 12, 2023 Attending Provider at Admission: Laura Jaquez MD Attending Provider at Discharge: Cordell Mortensen MD Primary Care Provider: Romeo Pena MD Diagnoses at Discharge Discharge Diagnosis (1) Pre-eclampsia in period: Status: Acute (2) Eclampsia: Status: Acute (3) JULIEN (acute kidney injury): Status: Acute (4) Anemia affecting in third trimester: Status: Acute (5) Moderate major depression: Status: Acute (6) Anxiety: Status: Acute Reason for Visit Reason for Visit: back pain Hospital Course Hospital Course Lela Miramontes is a 27 year old female presented from OB clinic for her headache and generalized weakness. Patient is 5 days, received epidural,, G3, P3 status post spontaneous vaginal delivery followed by permanent sterilization bilateral salpingectomy, EBL 300ml 11/01 no history of hypertension or diabetes during , Patient is stating that she has history of cutaneous sarcoidosis which gets better during , otherwise she does not have any significant other medical history, her siblings are doing well no history of renal disease or hearing deficit or [place] syndrome, stating that her sister was diagnosed some kind of cardiac disease but she is not sure about the diagnosis Patient is stating that her left leg is more swollen as compared to right, she is not experiencing any chest pain shortness of breath fever nausea vomiting or diarrhea Her main reason to come to the hospital was worsening of back pain Patient was admitted to [facility], for JULIEN, back pain, headaches -Patient's hospitalization was complicated with preeclampsia/eclampsia, in the period, developed 2 seizure episodes, requiring intubation, mechanical ventilation, for airway protection. OB was consulted, neurology was consulted, patient was managed on IV magnesium, Keppra, monitor in ICU, weaned off sedation, extubated to room air, monitored in ICU for at least 48 hours, no recurrent seizure-like episodes, completed magnesium therapy, overall clinically improved. On discharge she is alert oriented x 4, following all commands, ambulating, no recurrent seizure-like episodes, discharged on Keppra 1000 mg twice daily for at least 6 weeks, follow-up with Dr. Larry in 1 week, follow-up with neurology in 1 month For preeclampsia/eclampsia, will be discharged on labetalol 200 mg twice daily, follow-up with Dr. Albino in 1 week Patient's hospitalization was complicated with acute hypoxic respiratory failure, intubated for airway protection, concerns for aspiration pneumonia, managed with broad-spectrum antibiotic therapy, completed antibiotic therapy as inpatient Patient did have JULIEN on admission, nephrology was consulted, likely secondary to preeclampsia/eclampsia, some component related to ibuprofen use, monitored with IV fluids, overall clinically improved, creatinine discharge 1.3. Patient did have a broad-spectrum workup for JULIEN, please follow-up with primary care provider for further test results, repeat BMP through primary care provider in the next few days For her back pain, MRI of the back within normal limits, currently back pain- free On discharge patient will not be breast-feeding, she plans on bottlefeeding, advised that as she is on Keppra for at least 6 weeks, should avoid breast- feeding as Keppra is present in breastmilk, - As you had a seizure, likely related to preeclampsia/eclampsia, as per [place] law, you should not drive, must be seizure-free for at least 6 months, but follow-up with primary care and neurology -Continue labetalol -continue keppra -if any recurrent seizure like episodes please call 911 -please have primary care recheck kidney function Physical Exam Const: COMMON NORMALS: no acute distress and patient oriented x3 Resp: COMMON NORMALS: normal respiratory effort, No retractions, No use of accessory muscles and clear to auscultation bilaterally AUSCULTATION: clear to auscultation bilaterally Cardio: COMMON NORMALS: regular rate, regular rhythm, S1 normal heart sound present and S2 normal heart sound present RATE: regular rate RHYTHM: regular rhythm HEART SOUNDS: S1 normal heart sound present and S2 normal heart sound present GI: COMMON NORMALS: Normal to inspection, nondistended, normoactive bowel sounds present and non-tender Extremity: COMMON NORMALS: no pedal edema Neuro: COMMON NORMALS: patient oriented x3, CN's II-XII intact bilaterally, moves all extremities and no focal motor deficits Psych: COMMON NORMALS: mental status grossly normal Urinary Catheter Management: Landeros: Cath Placed During This Visit: yes, but has since been removed by the nurse Reason for Continuing Indwelling Catheter: Decision to DC Catheter Urinary Catheter Date of Insertion: 11/07/23 Urinary Catheter Time of Insertion: 23:15 Date Urinary Catheter Removed: 11/10/23 Time Urinary Catheter Discontinued: 09:00 Discharge Data Studies Completed and Pending Completed Studies During Hospitalization Category Date Time Status CT head wo con* [id number] Stat Cat Scan 11/08/23 22:[address] head wo con* [id number] Urgent Cat Scan 11/07/23 17:[address] kidney stone [id number] Stat Cat Scan 11/07/23 18:44 Completed CTA head [CT angio head [id number]] Routine Cat Scan 11/09/23 04:41 Completed CXRP [XR chest 1V portable [id number]] Stat Exams 11/09/23 03:33 Completed XR chest 1V portable [id number] Routine Exams 11/09/23 07:28 Completed XR chest 1V portable [id number] Routine Exams 11/10/23 07:00 Completed XR chest 1V portable [id number] Stat Exams 11/09/23 03:53 Completed MR lumbar spine wo con* [id number] Stat MRI 11/08/23 12:10 [place] [id number] Routine Ultrasound 11/08/23 06:00 Completed CV. echo complete* [id number] Routine Ultrasound 11/08/23 16:03 Completed US renal BI* [id number] Routine Ultrasound 11/08/23 09:55 Completed Pending at discharge Category Date Time Status JAYSON Profile Rheumatology Routine Lab 11/10/23 08:44 Results Blood Culture Stat Lab 11/09/23 18:56 Results Radiology Impressions Abdomen/Pelvis CT 11/07/23 18:44 IMPRESSION: 1. appearance of the uterus. 2. No acute findings within the bilateral kidneys. No hydronephrosis. 3. 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 Lesions between 2-3 cm are recommended to be re-evaluated every 5 years. 4. Small umbilical hernia with mild surrounding fat stranding. 5. Hepatosplenomegaly. Venous Duplex 11/08/23 06:00 IMPRESSION: No evidence of deep vein thrombosis. Renal Ultrasound 11/08/23 09:55 IMPRESSION: No hydronephrosis on either side. Lumbar Spine MRI 11/08/23 12:10 IMPRESSION: No significant thecal sac compression or neural foraminal narrowing. Head CT 11/08/23 22:18 IMPRESSION: No acute intracranial abnormality. Head CTA 11/09/23 04:41 IMPRESSION: No venous thrombosis. Chest X-Ray 11/10/23 07:00 IMPRESSION: 1. No acute cardiopulmonary findings. Laboratory Results WBC 6.23 10^3/uL (3.29-11.43) 11/12/23 08:33 RBC 4.18 10^6/uL (3.85-5.65) 11/12/23 08:33 Hgb 11.90 g/dL (11.27-16.99) 11/12/23 08:33 Hct 38.8 % (36-47) 11/12/23 08:33 MCV 92.8 fl (85-98) 11/12/23 08:33 MCH 28.5 pg (27-33) 11/12/23 08:33 MCHC 30.7 g/dL (30-55) D 11/12/23 08:33 RDW 14.5 % (12.1-15.1) 11/12/23 08:33 Plt Count 185 10^3/cmm (157-399) 11/12/23 08:33 MPV 11.8 fL (7.4-10.4) H 11/12/23 08:33 Neut % (Auto) 60.5 % 11/12/23 08:33 Lymph % (Auto) 28.1 % 11/12/23 08:33 [place] % (Auto) 7.7 % 11/12/23 08:33 Eos % (Auto) 2.7 % 11/12/23 08:33 Baso % (Auto) 0.5 % 11/12/23 08:33 Neut # (Auto) 3.77 10^3/uL (1.8-7.7) 11/12/23 08:33 Lymph # (Auto) 1.8 10^3/uL (0.8-4.8) 11/12/23 08:33 [place] # (Auto) 0.5 10^3/uL (0.2-0.9) 11/12/23 08:33 Eos # (Auto) 0.2 10^3/uL (0.0-0.8) 11/12/23 08:33 Baso # (Auto) 0.0 10^3/uL (0.0-0.1) 11/12/23 08:33 Nucleated RBC % (auto) 0 % 11/12/23 08:33 Nucleated RBCs # 0.0 /100WBC 11/12/23 08:33 ESR 24 mm/hr (0-15) H 11/08/23 04:57 Specimen Type Arterial 07/28/24 05:05 Sample Site Radial, right 11/09/23 05:05 ABG pH 7.36 (7.35-7.45) 11/09/23 05:05 ABG pCO2 35.5 mmHg (35-45) 11/09/23 05:05 ABG pO2 215.0 mmHg (80.0-100.0) H 11/09/23 05:05 ABG PO2/FiO2 Ratio 268 11/09/23 05:05 ABG HCO3 20.0 mmol/L (22-26) L 11/09/23 05:05 ABG Base Excess -4.8 mmol/L (-2.0-2.0) L 11/09/23 05:05 Valentino Test Pos 11/09/23 05:05 Hematocrit 40.7 % (37-47) 11/09/23 05:05 O2 Delivery Device Vent 11/09/23 05:05 FiO2 80.0 % 11/09/23 05:05 Tidal Volume 0.40 11/09/23 05:05 PEEP 8.0 cmH20 11/09/23 05:05 Supervisor Small Appliance Assembly ID [id number] 11/09/23 05:05 Sodium 147 mmol/L (136-145) H 11/12/23 08:33 Potassium 4.0 mmol/L (3.5-5.1) 11/12/23 08:33 Chloride 111 mmol/L (98-107) H 11/12/23 08:33 Carbon Dioxide 20 mmol/L (22-29) L 11/12/23 08:33 Anion Gap 20.0 (5-19) H 11/12/23 08:33 BUN 20 mg/dL (6-20) 11/12/23 08:33 Creatinine 1.3 mg/dL (0.5-0.9) H 11/12/23 08:33 GFR Calculation 49.5 mL/min (90-130) L 11/12/23 08:33 Glucose 107 mg/dL (65-115) 11/12/23 08:33 POC Glucose 112 mg/dL (70-110) H 11/09/23 07:32 Estimat Average Glucose 85 11/09/23 03:11 Hemoglobin A1c 4.6 % (4.0-6.0) 11/09/23 03:11 Calculated Osmolality 307 mOsm/kg (285-295) H 11/12/23 08:33 Calcium 8.9 mg/dL (8.5-10.5) 11/12/23 08:33 Phosphorus 7.3 mg/dL (2.5-4.5) H 11/08/23 04:57 Magnesium 5.6 mg/dL (5.0-7.5) 11/10/23 08:39 Total Bilirubin 0.3 mg/dL (0.15-1.2) 11/12/23 08:33 AST 10 U/L (0-32) 11/12/23 08:33 ALT 10 U/L (0-33) 11/12/23 08:33 Alkaline Phosphatase 118 U/L (35-105) H 11/12/23 08:33 Creatine Kinase 35 U/L (26-192) 11/08/23 04:57 C-Reactive Protein 78.0 mg/L (0.0-4.9) H 11/11/23 04:20 NT-Pro-B Natriuret Pep 178 pg/mL (0-125) H 11/11/23 04:20 Total Protein 6.5 g/dL (6.6-8.7) L 11/12/23 08:33 Albumin 3.5 g/dL (3.5-5.2) 11/12/23 08:33 Globulin 3.0 g/dL (1.3-4.6) 11/12/23 08:33 Procalcitonin 0.13 ng/mL (0-0.5) 11/11/23 04:20 TSH 1.77 uIU/mL (0.27-4.20) 11/07/23 18:04 Urine Color Yellow (Yellow) 11/07/23 19:23 Urine Appearance Clear (CLEAR) 11/07/23 19:23 Urine pH 5 (5-7) 11/07/23 19:23 Ur Specific [place] 1.005 (1.005-1.030) 11/07/23 19:23 Urine Protein 1+ (Negative) H 11/07/23 19:23 Urine Glucose (UA) Norm (Normal) 11/07/23 19:23 Urine Ketones Negative (Negative) 11/07/23 19:23 Urine Blood 3+ (Negative) H 11/07/23 19:23 Urine Nitrate Negative (Negative) 11/07/23 19:23 Urine Bilirubin Neg (Negative) 11/07/23 19:23 Urine Urobilinogen Neg mg/dL (Negative) 11/07/23 19:23 Ur Leukocyte Esterase Negative (Negative) 11/07/23 19:23 Urine RBC 0-4 /hpf (0-2) H 11/07/23 19:23 Urine WBC 5-10 /hpf (0-5) H 11/07/23 19:23 Ur Eosinophil Smear 0 (0-0) 11/07/23 19:23 Ur Squamous Epith Cells 5-10 /hpf (0-5) H 11/07/23 19:23 Amorphous Sediment Trace /hpf 11/07/23 19:23 Urine Bacteria 1+ /hpf (NONE) H 11/07/23 19:23 Hyaline Casts 0-4 /lpf H 11/07/23 19:23 Fine Granular Casts 0-4 /lpf H 11/07/23 19:23 Urine Eosinophils No eosinophils seen 11/07/23 19:23 Ur Random Microalbumin 10 ug/dL (0-20) 11/07/23 19:23 Ur Random Sodium 43 mmol/L 11/07/23 19:23 Urine Total Volume 5650 mL 11/09/23 05:00 Urine Creatinine 35 mg/dL (28-217) 11/07/23 19:23 Urine Creatinine 35 mg/dL (28-217) 11/07/23 19:23 Microalb/Creat Ratio 286 mg/dL (0-20) H 11/07/23 19:23 Ur Total Protein 24 Hr 689.3 mg/24hr (0-150) H 11/09/23 05:00 Urine Total Protein 12.2 mg/dL (0-150) 11/09/23 05:00 JAYSON Titer 2 Cancelled 11/09/23 05:04 JAYSON Titer 3 Cancelled 11/09/23 05:04 JAYSON Nuclear Membr Pat Cancelled 11/09/23 05:04 JAYSON Pattern 2 Cancelled 11/09/23 05:04 JAYSON Pattern 3 Cancelled 11/09/23 05:04 JAYSON IFA Animal Tis Ttr Cancelled 11/09/23 05:04 JAYSON IFA Animal Tis Res Negative (NEGATIVE) 11/09/23 05:39 KARTHIK-1 Antibody <1.0 neg AI (<1.0 NEG) 11/09/23 05:39 KARTHIK-1 Antibody Cancelled 11/09/23 05:39 SS-A Antibody <1.0 neg AI (<1.0 NEG) 11/09/23 05:39 SS-A/Ro IgG Antibody Cancelled 11/09/23 05:39 SS-B Antibody <1.0 neg AI (<1.0 NEG) 11/09/23 05:39 SS-B/La IgG Antibody Cancelled 11/09/23 05:39 Sm (Bowen) Antibody <1.0 neg AI (<1.0 NEG) 11/09/23 05:39 ENGINEER CHIEF Antibody <1.0 neg AI (<1.0 NEG) 11/09/23 05:39 Anti-nRNP/Sm IgG Ab Cancelled 11/09/23 05:39 Scl-70 Scleroderma Ab Cancelled 11/09/23 05:39 Scl-70 Antibody <1.0 neg AI (<1.0 NEG) 11/09/23 05:39 Anti-ds DNA IgG Ab Cancelled 11/09/23 05:39 Anti-ds DNA IgG (Crith) Cancelled 11/09/23 05:04 Anti-ds DNA Titer (Crith) Cancelled 11/09/23 05:04 Centromere B Antibody <1.0 neg AI (<1.0 NEG) 11/09/23 05:39 Thyroid Peroxidase Ab <1 IU/mL (<9) 11/09/23 05:39 Complement C3 116 mg/dL (90-180) 11/10/23 08:39 Complement C3c Cancelled 11/09/23 05:04 Complement C4 36 mg/dL (10-40) 11/10/23 08:39 Complement C4c Cancelled 11/09/23 05:04 CH50 Classical Pathway Cancelled 11/09/23 05:04 Hepatitis A IgM Ab Non-reactive (Nonreactive) 11/07/23 18:04 Hep Bs Antigen Non-reactive (Nonreactive) 11/07/23 18:04 Hep Bs Antibody < 3.5 (11.5-1000) L 11/07/23 18:04 Hep B Core Total Ab Non-reactive (Nonreactive) 11/07/23 18:04 Hepatitis C Antibody Non-reactive (Nonreactive) 11/07/23 18:04 Vitals Last Vital Signs Temp 97.4 F L 11/12/23 08:00 Pulse 60 11/12/23 08:00 Resp 16 11/12/23 08:00 BP 114/80 11/12/23 08:00 Pulse Ox 98 11/12/23 08:00 O2 Del Method Room Air 11/12/23 08:00 FiO2 30 11/09/23 12:15 Discharge Plan Discharge Patient Disposition: Home Condition: Stable Prescriptions: New labetalol 200 mg Tablet 200 mg PO BID 30 Days Qty: 60 0RF levetiracetam [Keppra] 1,000 mg tablet 1,000 mg PO BID 42 Days Qty: 84 0RF Continued sertraline [Zoloft] 50 mg tablet 75 mg PO BEDTIME PNV #[id number] 30 mg iron-10 mg iron-1 mg capsule 1 cap PO DAILY ferrous sulfate 325 mg (65 mg iron) tablet 325 mg PO BID 30 Days Qty: 60 3RF hydrocodone-acetaminophen 5-325 mg tablet 1 tab PO Q4H PRN (Reason: pain) Qty: 10 0RF docusate sodium [Colace] 100 mg capsule 100 mg PO BID Qty: 60 0RF Discontinued ibuprofen 800 mg tablet 800 mg PO TID PRN (Reason: pain) Qty: 60 0RF Discharge Orders: Discharge Order (Routine); Ordered 11/12/23 Ordered By: Cordell Mortensen Referrals: Russell Larry MD [Physician] - 1 week Irving Walters MD [Physician] - 1 month Romeo Pena MD [Primary Care Provider] - 2 weeks Discharge Diet: Advance as tolerated Discharge Activity: Resume usual activity Patient Instructions: New-Onset Seizure in Adults (DC), Preeclampsia and Eclampsia After Delivery (GEN), Generalized Tonic Clonic Seizures (ED), Hypertension During (GEN), Opioid Safety Activity Restrictions/Additional Instructions: - As you had a seizure, likely related to preeclampsia/eclampsia, as per [place] law, you should not drive, must be seizure-free for at least 6 months, but follow-up with primary care and neurology -Continue labetalol -continue keppra -if any recurrent seizure like episodes please call 911 -please have primary care recheck kidney function Discharge Attestations Time Spent in Discharge Care*: greater than 30 min Quality Metrics Clinical Quality Measures [ No reported AMI, CVA or VTE this stay] Coding Level of Care Code 23269 Total time (in minutes) for Discharge: 45 Diagnoses Pre-eclampsia in period O14.95 Eclampsia O15.9 JULIEN (acute kidney injury) N17.9 Anemia affecting in third trimester O99.013 Moderate major depression F32.1 Anxiety F41.9
[2023-11-12 14:15] LABS: COMPLEMENT, TOTAL (CH50) 51 U/mL (31-60)
[2023-11-12 17:40] LABS: COMPLEMENT COMPONENT C3C 115 mg/dL (83-193); COMPLEMENT COMPONENT C4C 34 mg/dL (15-57)
[2023-11-17 19:51] LABS: DNA AB (DS) CRITHIDIA,IFA NEGATIVE (NEGATIVE)
--- NOTE | 2023-12-07 04:14 | PM.EVENT ---
Event Note Event Note: Called to bedside regarding patient deterioration, with multiple seizures. Magnesium was being started as well as Keppra infusion. The patient was not responding to stimuli, and concern arose over her ability to protect her airway. She also did not have adequate IV access, as she only had 1 line. Decision was made by hospitalist and myself to intubate the patient for airway protection due to essentially status epilepticus at that point, with sedation with propofol, as well as abatement of seizures with the same and to continue Keppra infusion and magnesium. Intubation was performed without complication. Central line was placed without complication. Acute Procedures Central Line Placement Right IJ: Patient placed on monitor/pulse ox: Yes MD prep: mask, gown and gloves Central line prep: Chlorhexidine scrub Local anesthesia used: lidocaine 1% Amount of anesthesia used (ml): 3 Ultrasound used for placement: Yes Central line lumen inserted: triple Post procedure: sutured in place, good blood return, all ports aspirated, flushed, capped and sterile dressing applied Post procedure x-ray: tip of catheter in good position Patient tolerated procedure: well and no complications Complications: none Intubation Time out performed: No Sedative: etomidate Mg given: 20 Paralytic: succinylcholine Mg given: 100 Laryngoscope: fiber optic video scope ET tube size: 8 ET tube uncuffed: No Tube secured depth (cm): 24 Tube secured location: lips Tube placement confirmation: visualized tube passing through cords, equal breath sounds bilaterally, confirmation by capnometry and color change noted Patient tolerated procedure: well and no complications Intubation complications: none
== END 2023-11-12 12:03 | disposition home or self-care (01) | DRG 776 ==
LOC: ER 20:20 → MEDSURG 20:27 → ICU 11-09 03:05 → OBGYN 11-10 12:44
PROVIDERS: Family Medicine; Hospitalist; Obstetrics & Gynecology; Admitting Provider Internal Medicine; Emergency Provider Physician Assistant; PCP Family Medicine; Visit Provider Family Medicine
DX: O15.2 Eclampsia complicating the puerperium (principal); J96.01 Acute respiratory failure with hypoxia; O90.49 Other postpartum acute kidney failure; E87.20 Acidosis, unspecified; O90.81 Anemia of the puerperium; O99.53 Diseases of the respiratory system complicating the puerperium; O99.345 Other mental disorders complicating the puerperium; F32.89 Other specified depressive episodes; F41.9 Anxiety disorder, unspecified; O99.893 Other specified diseases and conditions complicating puerperium; R16.2 Hepatomegaly with splenomegaly, not elsewhere classified; D17.9 Benign lipomatous neoplasm, unspecified; R51.9 Headache, unspecified; D86.9 Sarcoidosis, unspecified; M54.9 Dorsalgia, unspecified; E87.6 Hypokalemia
CPT/HCPCS: 36415; 36416; 36592; 51702; 70450; 70496; 71045; 72148; 74176; 76770; 80048; 80053; 81001; 82044; 82550; 82570; 82803; 82962; 83036; 83735; 83880; 84100; 84145; 84156; 84300; 84443; 85025; 85651; 85999; 86140; 86160; 86162; 86225; 86235; 86255; 86376; 86705; 86706; 86709; 86803; 87040; 87070; 87205; 87340; 92507; 92523; 92526; 92610; 93306; 93970; 94002; 94799; 96372; 96376; 97110; 97161; 97165; 99285; A4570; C1751; J0330; J0696; J1644; J1953; J2060; J2543; J2704; J3010; J3475; J3480; J3490; J7030; J7070; J7121; Q3014; Q9967

== ENCOUNTER → 2023-11-17 10:40 | Outpatient (BNVA) | payer BC, MEDICAID, SELFPAY | PROVIDERS: PCP Family Medicine; Visit Provider Obstetrics & Gynecology | DX: O14.95 Unspecified pre-eclampsia, complicating the puerperium (principal) | CPT/HCPCS: 80053 ==

== ENCOUNTER → 2024-09-25 10:09 | Outpatient (BNVA) | payer BC, MEDICAID, SELFPAY | PROVIDERS: PCP Family Medicine | DX: J02.9 Acute pharyngitis, unspecified (principal) | CPT/HCPCS: 87070; 87880 ==

== ENCOUNTER → 2024-12-28 13:46 | Outpatient (BNVA) | payer BC, MEDICAID, SELFPAY | PROVIDERS: PCP Family Medicine; Visit Provider Registered Nurse Neonatal Intensive Care | DX: R11.0 Nausea (principal) | CPT/HCPCS: 81000 ==